=== PATIENT | female | born 1950 | race Two or more races ===

== ENCOUNTER 2020-05-12 08:50 | Outpatient (REF) | payer MEDICARE, SELFPAY ==
--- NOTE | 2020-05-12 08:54 | MM_ITS ---
EXAMINATION: BONE DENSITOMETRY CLINICAL INDICATION: Osteoporosis. COMPARISON: None (current study represents initial baseline exam). TECHNIQUE: Using a [employer] DXA System (software version: 13.1) manufactured by [employer], dual-energy x-ray absorptiometry was performed of the lumbar spine and left hip. The images are of good technical quality. Summary results are attached. FINDINGS: AP SPINE L1-L4: BMD 0.710 g/cm2, Z-score -1.5, T-score -3.9, osteoporosis. LEFT FEMUR, NECK: BMD 0.597 g/cm2, Z-score -1.1, T-score -3.2, osteoporosis. LEFT FEMUR, TOTAL: BMD 0.679 g/cm2, Z-score -0.7, T-score -2.6, osteoporosis. IDENTIFIED RISK FACTORS: Secondary osteoporosis (intestinal or bowel disease). Low body weight. Menopause. HISTORY OF FRACTURE: None listed. MEDICATIONS: Vitamin D. MM/XR DEXA axial skeleton IMPRESSION: 1. DIAGNOSIS: Osteoporosis based on the lowest T-score value of -3.9 in the lumbar spine applying World Health Organization criteria. 2. 10-YEAR FRACTURE RISK PREDICTION, FRAX: Major osteoporotic fracture (clinical spine, forearm, hip or shoulder) 9.4%. Hip fracture 3.5%. 3. Treatment Recommendations: NOF guidelines recommend consideration for treatment in postmenopausal women and men age 50 and older presenting with the following: -A hip or vertebral (clinical or morphometric) fracture. -T-score less than or equal to -2.5 at the femoral neck or spine after appropriate evaluation to exclude secondary causes. -Low bone mass at the hip or spine and a 10-year fracture probability by FRAX of greater than or equal to 3% for hip fracture or greater than or equal to 20% for major osteoporotic fracture based on the [place] adapted WHO algorithm. 4. Other Recommendations: All treatment decisions require clinical judgment and consideration of individual patient factors, including patient preferences, comorbidities, previous drug use, risk factors not captured in the FRAX model (e.g. frailty, falls, vitamin D deficiency, increased bone turnover, interval significant decline in bone density) and possible under or overestimation of fracture risk by FRAX. Additional medical evaluation for secondary cause of low bone mineral density may be appropriate. FUTURE SCAN RECOMMENDATION: People with diagnosed cases of osteoporosis or at high risk for fracture should have regular bone mineral density tests. For patients eligible for Medicare, routine testing is allowed once every 2 years. The testing frequency can be increased to one year for patients who have rapidly progressing disease, those who are receiving or discontinuing medical therapy to restore bone mass, or have additional risk factors.
== END 2020-05-12 08:51 | disposition home or self-care (01) ==
LOC: HO.MAMMO 08:50
PROVIDERS: PCP Internal Medicine; Visit Provider Internal Medicine
DX: R63.6 Underweight (principal); Z78.0 Asymptomatic menopausal state
CPT/HCPCS: 77080

== ENCOUNTER 2020-07-24 09:48 | Outpatient (REF) | payer MEDICARE, SELFPAY ==
--- NOTE | 2020-07-24 09:52 | MM_ITS ---
EXAMINATION: MM SCREENING DIGITAL BREAST TOMOSYNTHESIS, BILATERAL CLINICAL INFORMATION: Screening. Asymptomatic. The lifetime risk of breast cancer based on the Tyrer-Cuzick Model is 3%. COMPARISON: Mammography: 07/19/2019, 07/13/2018, 05/12/2017 TECHNIQUE: Digital breast tomosynthesis is performed in both the craniocaudal and mediolateral oblique views along with computer-aided detection (CAD). Synthesized 2D images are generated from the tomosynthesis. Additional right CC view is provided. FINDINGS: There are scattered areas of fibroglandular density (ACR BI-RADS breast composition Category b). There are no significant masses, abnormal calcifications, or other abnormalities. No significant changes from prior exams. MM/MM tomosynthesis screening BI IMPRESSION: No mammographic evidence of malignancy. ASSESSMENT: BI-RADS 1: Negative RECOMMENDATION: Routine annual mammography screening. This patient's information was entered into a reminder system with a target due date for their next mammogram.
== END 2020-07-24 09:49 | disposition home or self-care (01) ==
LOC: HO.MAMMO 09:48
PROVIDERS: PCP Internal Medicine; Visit Provider Internal Medicine
DX: Z12.31 Encounter for screening mammogram for malignant neoplasm of breast (principal)
CPT/HCPCS: 77063; 77067

== ENCOUNTER 2020-08-02 09:56 | Outpatient (REF) | payer MEDICARE, SELFPAY ==
[2020-08-02 11:19] LABS: MANUAL DIFF FLAG NO
[2020-08-02 11:38] LABS: Basophils Percent Auto 1.1 % (0-2); Eosinophils Percent Auto 0.6 % (0-4); Hematocrit 35.8 % (37-47); Hemoglobin 11.5 g/dl (12.0-16.0); Imm Gran Abs Auto 0.01 X10*3/uL (0.00-0.03); Imm Gran Pct Auto 0.3 % (0.0-0.4); Lymphocytes Absolute Auto 1.5 X10*3/uL (1.2-4.9); Mean Corpuscular HGB Conc 32.1 g/dl (31.0-35.0); Mean Corpuscular Hemoglobin 30.3 pg (27.0-33.0); Mean Corpuscular Volume 94.5 fL (80-98); Mean Platelet Volume 11.5 fL (9.4-12.3); Monocytes Absolute Auto 0.2 X10*3/uL (0.1-1.2); Monocytes Percent Auto 6.8 % (2-11); Neutrophils Absolute Auto 1.7 X10*3/uL (2.0-8.3); Neutrophils Percent Auto 49.2 % (45-73); Platelet Count 201 X10*3/uL (160-400); Red Blood Count 3.79 X10*6/uL (4.20-5.50); White Blood Count 3.5 X10*3/uL (4.8-10.8)
[2020-08-02 12:01] LABS: Alanine Aminotransferase 13 U/L (0-31); Albumin Level 4.4 g/dL (3.5-5.0); Alkaline Phosphatase 77 U/L (39-117); Anion Gap 10 (12-20); Aspartate Amino Transferase 22 U/L (5-31); Bilirubin Total 0.8 mg/dL (0.0-1.0); Blood Urea Nitrogen 16 mg/dL (9-16); Calcium 9.5 mg/dL (8.4-10.2); Carbon Dioxide 32 mmol/L (22-29); Chloride 105 mmol/L (96-108); Cholesterol 226 mg/dL; Estimated Glomerular Filt Rate > 60; Glucose Fasting 97 mg/dL (60-99); HDL Cholesterol 84 mg/dL; LDL Cholesterol Calculated 119 mg/dl; Potassium 4.3 mmol/l (3.3-5.1); Sodium 143 mmol/L (135-145); Total Protein 6.8 g/dL (6.5-8.0); Triglycerides 115 mg/dL
[2020-08-02 12:20] LABS: TSH reflex Free T4 1.67 mIU/mL (0.32-4.0); Vitamin D 25-OH Total 19.2 ng/mL (>30)
== END 2020-08-02 09:57 | disposition home or self-care (01) ==
LOC: HO.LAB 09:56
PROVIDERS: PCP Internal Medicine; Visit Provider Internal Medicine
DX: E78.5 Hyperlipidemia, unspecified (principal); K21.9 Gastro-esophageal reflux disease without esophagitis; K59.00 Constipation, unspecified; E55.9 Vitamin D deficiency, unspecified; R63.6 Underweight
CPT/HCPCS: 36415; 80053; 80061; 82306; 84443; 85025

== ENCOUNTER 2020-10-03 10:44 | Outpatient (REF) | payer MEDICARE, SELFPAY | END 2020-10-03 10:45 | disposition home or self-care (01) | LOC: HO.LAB 10:44 | PROVIDERS: Visit Provider Internal Medicine | DX: Z20.822 Contact with and (suspected) exposure to COVID-19 (principal) | CPT/HCPCS: 36415; C9803; U0003; U0005 ==

== ENCOUNTER 2020-10-11 08:13 | Outpatient (REF) | payer MEDICARE, SELFPAY ==
[2020-10-11 10:25] LABS: Vitamin D 25-OH Total 33.9 ng/mL (>30)
[2020-10-12 18:11] LABS: Calcium (PTHI) 10.1 mg/dL (8.6-10.4); PTHI 42 pg/mL (14-64)
[2020-10-13 06:56] LABS: Immunoglobulin A 265 mg/dL (70-320)
[2020-10-13 15:22] LABS: Prot Elec - Albumin 4.5 g/dL (3.8-4.8); Prot Elec - Alpha1 0.2 g/dL (0.2-0.3); Prot Elec - Alpha2 0.6 g/dL (0.5-0.9); Prot Elec - Beta 1 0.4 g/dL (0.4-0.6); Prot Elec - Beta 2 0.4 g/dL (0.2-0.5); Prot Elec - Gamma 0.9 g/dL (0.8-1.7); Prot Elec - Total Protein 6.9 g/dL (6.1-8.1)
[2020-10-16 17:22] LABS: Transglutaminase Ab IgG 2 U/mL
[2020-10-17 02:26] LABS: VITAMIN D (1,25 OH) D3 43 pg/mL; Vit D (1,25-Dihydroxy) Total 43 pg/mL (18-72); Vitamin D (1,25 OH) D2 <8 pg/mL
[2020-10-17 16:02] LABS: N-Telopeptide 55 (see note); NTXCreaRU 112 mg/dL (20-275)
[2020-10-18 14:17] LABS: Endomysial IgA Antibody Negative (Negative)
== END 2020-10-11 08:14 | disposition home or self-care (01) ==
LOC: HO.LAB 08:13
PROVIDERS: PCP Internal Medicine; Referring Provider Internal Medicine; Visit Provider Internal Medicine Endocrinology, Diabetes & Metabolism
DX: M81.0 Age-related osteoporosis without current pathological fracture (principal); E55.9 Vitamin D deficiency, unspecified; D64.9 Anemia, unspecified; R63.4 Abnormal weight loss; Z79.899 Other long term (current) drug therapy
CPT/HCPCS: 36415; 82306; 82523; 82652; 82784; 83516; 83970; 84155; 84165; 86255; 86256; 99202

== ENCOUNTER 2020-10-14 08:37 | Outpatient (REF) | payer MEDICARE, SELFPAY ==
[2020-10-14 09:23] LABS: Total Volume 24 Hour Urine 1100 mL
[2020-10-14 09:57] LABS: Creatinine, 24Hr Urine 0.7 G/Day (1.0-2.0)
[2020-10-16 16:56] LABS: Calcium, 24 Hr Urine 96 mg/24 h; Calcium/Creatinine Ratio 150 mg/g creat (30-275); Creatinine 24Hr Urine 0.64 g/24 h (0.50-2.15)
[2020-10-17 11:37] LABS: Creatinine, 24Hr Urine 0.65 g/24 h (0.50-2.15); PEU-PROT/CRE Ratio mg/mg 0.085 (< OR = 0.114); PEU24-Albumin Urine 100 %; PEU24-Alpha 1 Globulin 0 %; PEU24-Alpha 2 Globulin 0 %; PEU24-Beta Globulin 0 %; PEU24-Gamma Globulin 0 %; Total Protein 24Hr Urine 55 mg/24 h (<150); Total Protein/Creat Ratio 24h 85 mg/g creat (< OR = 114)
== END 2020-10-14 08:38 | disposition home or self-care (01) ==
LOC: HO.LNP 08:37
PROVIDERS: Visit Provider Internal Medicine Endocrinology, Diabetes & Metabolism
DX: M81.0 Age-related osteoporosis without current pathological fracture (principal)
CPT/HCPCS: 82340; 82570; 84156; 84166

== ENCOUNTER 2020-12-04 09:20 | Outpatient (REF) | payer MEDICARE, SELFPAY ==
[2020-12-04 10:32] LABS: MANUAL DIFF FLAG NO
[2020-12-04 10:40] LABS: Eosinophils Absolute Auto 0.1 X10*3/uL (0.0-0.4); Hematocrit 35.1 % (37-47); Hemoglobin 11.2 g/dl (12.0-16.0); Imm Gran Abs Auto 0.01 X10*3/uL (0.00-0.03); Imm Gran Pct Auto 0.2 % (0.0-0.4); Lymphocytes Absolute Auto 1.6 X10*3/uL (1.2-4.9); Mean Corpuscular HGB Conc 31.9 g/dl (31.0-35.0); Mean Corpuscular Hemoglobin 29.9 pg (27.0-33.0); Mean Corpuscular Volume 93.6 fL (80-98); Mean Platelet Volume 11.4 fL (9.4-12.3); Monocytes Absolute Auto 0.2 X10*3/uL (0.1-1.2); Monocytes Percent Auto 5.7 % (2-11); Neutrophils Absolute Auto 2.1 X10*3/uL (2.0-8.3); Neutrophils Percent Auto 52.1 % (45-73); Platelet Count 189 X10*3/uL (160-400); Red Blood Count 3.75 X10*6/uL (4.20-5.50); Red Cell Distribution Width 13.1 % (11.0-16.0)
[2020-12-04 11:12] LABS: Alanine Aminotransferase 11 U/L (0-31); Albumin Level 4.2 g/dL (3.5-5.0); Alkaline Phosphatase 74 U/L (39-117); Anion Gap 12 (12-20); Aspartate Amino Transferase 20 U/L (5-31); Bilirubin Total 0.6 mg/dL (0.0-1.0); Blood Urea Nitrogen 11 mg/dL (9-16); Calcium 9.3 mg/dL (8.4-10.2); Carbon Dioxide 29 mmol/L (22-29); Chloride 104 mmol/L (96-108); Cholesterol 233 mg/dL; Estimated Glomerular Filt Rate > 60; Glucose Fasting 91 mg/dL (60-99); HDL Cholesterol 79 mg/dL; LDL Cholesterol Calculated 129 mg/dl; Potassium 4.2 mmol/L (3.3-5.1); Sodium 141 mmol/L (135-145); Total Protein 6.6 g/dL (6.5-8.0); Triglycerides 125 mg/dL
[2020-12-04 11:37] LABS: TSH reflex Free T4 1.99 uIU/mL (0.32-4.0); Vitamin D 25-OH Total 37.6 ng/mL (>30)
== END 2020-12-04 09:21 | disposition home or self-care (01) ==
LOC: HO.LAB 09:20
PROVIDERS: PCP Internal Medicine; Visit Provider Internal Medicine
DX: K21.9 Gastro-esophageal reflux disease without esophagitis (principal); K59.00 Constipation, unspecified; E78.00 Pure hypercholesterolemia, unspecified; E55.9 Vitamin D deficiency, unspecified
CPT/HCPCS: 36415; 80053; 80061; 82306; 84443; 85025

== ENCOUNTER → 2021-01-10 08:31 | Outpatient (BNVA) | payer MEDICARE, SELFPAY | PROVIDERS: PCP Internal Medicine; Visit Provider Internal Medicine Endocrinology, Diabetes & Metabolism | DX: M81.0 Age-related osteoporosis without current pathological fracture (principal); E55.9 Vitamin D deficiency, unspecified | CPT/HCPCS: 99212 ==

== ENCOUNTER 2021-04-02 09:51 | Outpatient (REF) | payer MEDICARE, SELFPAY ==
[2021-04-02 10:53] LABS: MANUAL DIFF FLAG NO
[2021-04-02 11:03] LABS: Basophils Percent Auto 1.1 % (0-2); Eosinophils Absolute Auto 0.1 X10*3/uL (0.0-0.4); Eosinophils Percent Auto 1.9 % (0-4); Hematocrit 36.1 % (37-47); Hemoglobin 11.7 g/dl (12.0-16.0); Imm Gran Abs Auto 0.01 X10*3/uL (0.00-0.03); Imm Gran Pct Auto 0.3 % (0.0-0.4); Lymphocytes Absolute Auto 1.6 X10*3/uL (1.2-4.9); Lymphocytes Percent Auto 42.7 % (20-40); Mean Corpuscular HGB Conc 32.4 g/dl (31.0-35.0); Mean Corpuscular Hemoglobin 30.1 pg (27.0-33.0); Mean Corpuscular Volume 92.8 fL (80-98); Monocytes Absolute Auto 0.3 X10*3/uL (0.1-1.2); Monocytes Percent Auto 7.4 % (2-11); Neutrophils Absolute Auto 1.8 X10*3/uL (2.0-8.3); Neutrophils Percent Auto 46.6 % (45-73); Platelet Count 195 X10*3/uL (160-400); Red Blood Count 3.89 X10*6/uL (4.20-5.50); Red Cell Distribution Width 13.2 % (11.0-16.0); White Blood Count 3.8 X10*3/uL (4.8-10.8)
[2021-04-02 11:30] LABS: Alanine Aminotransferase 8 U/L (0-31); Albumin Level 4.3 g/dL (3.5-5.0); Alkaline Phosphatase 73 U/L (39-117); Anion Gap 10 (12-20); Aspartate Amino Transferase 22 U/L (5-31); Bilirubin Total 0.5 mg/dL (0.0-1.0); Blood Urea Nitrogen 12 mg/dL (9-16); Calcium 9.7 mg/dL (8.4-10.2); Carbon Dioxide 30 mmol/L (22-29); Chloride 106 mmol/L (96-108); Cholesterol 249 mg/dL; Estimated Glomerular Filt Rate > 60; Glucose Fasting 98 mg/dL (60-99); HDL Cholesterol 80 mg/dL; LDL Cholesterol Calculated 139 mg/dl; Potassium 4.4 mmol/L (3.3-5.1); Sodium 142 mmol/L (135-145); Total Protein 6.6 g/dL (6.5-8.0); Triglycerides 154 mg/dL
[2021-04-02 11:55] LABS: Vitamin D 25-OH Total 25.3 ng/mL (>30)
== END 2021-04-02 09:52 | disposition home or self-care (01) ==
LOC: HO.LAB 09:51
PROVIDERS: PCP Internal Medicine; Visit Provider Internal Medicine
DX: E55.9 Vitamin D deficiency, unspecified (principal); M81.0 Age-related osteoporosis without current pathological fracture; E78.00 Pure hypercholesterolemia, unspecified; I10 Essential (primary) hypertension; K21.9 Gastro-esophageal reflux disease without esophagitis
CPT/HCPCS: 36415; 80053; 80061; 82306; 84443; 85025

== ENCOUNTER 2021-06-26 14:03 | Outpatient (REF) | payer MEDICARE, SELFPAY | END 2021-06-26 14:04 | disposition home or self-care (01) | LOC: HO.LNP 14:03 | PROVIDERS: Visit Provider Physician Assistant Medical | DX: Z20.822 Contact with and (suspected) exposure to COVID-19 (principal); R50.9 Fever, unspecified | CPT/HCPCS: 87071; U0003; U0005 ==

== ENCOUNTER 2021-07-05 09:08 | Outpatient (REF) | payer MEDICARE, SELFPAY ==
[2021-07-05 09:18] LABS: MANUAL DIFF FLAG NO
[2021-07-05 09:53] LABS: Basophils Absolute Auto 0.1 X10*3/uL (0.0-0.2); Basophils Percent Auto 1.2 % (0-2); Eosinophils Absolute Auto 0.1 X10*3/uL (0.0-0.4); Eosinophils Percent Auto 1.4 % (0-4); Hematocrit 37.2 % (37.0-47.0); Imm Gran Abs Auto 0.01 X10*3/uL (0.00-0.03); Imm Gran Pct Auto 0.2 % (0.0-0.4); Lymphocytes Absolute Auto 1.8 X10*3/uL (1.2-4.9); Lymphocytes Percent Auto 43.4 % (20-40); Mean Corpuscular HGB Conc 32.3 g/dl (31.0-35.0); Mean Platelet Volume 11.3 fL (9.4-12.3); Monocytes Absolute Auto 0.4 X10*3/uL (0.1-1.2); Neutrophils Absolute Auto 1.9 x10*3/uL (2.0-8.3); Neutrophils Percent Auto 44.8 % (45-73); Platelet Count 204 X10*3/uL (160-400); White Blood Count 4.2 X10*3/uL (4.8-10.8)
[2021-07-05 10:19] LABS: Alanine Aminotransferase 11 U/L (0-31); Albumin Level 4.3 g/dL (3.5-5.0); Alkaline Phosphatase 77 U/L (39-117); Anion Gap 11 (12-20); Aspartate Amino Transferase 24 U/L (5-31); Bilirubin Total 0.8 mg/dL (0.0-1.0); Blood Urea Nitrogen 12 mg/dL (9-16); Calcium 10.1 mg/dL (8.4-10.2); Carbon Dioxide 30 mmol/L (22-29); Chloride 105 mmol/L (96-108); Cholesterol 266 mg/dL; Estimated Glomerular Filt Rate > 60; Glucose Fasting 97 mg/dL (60-99); HDL Cholesterol 83 mg/dL; LDL Cholesterol Calculated 160 mg/dl; Potassium 4.7 mmol/L (3.3-5.1); Sodium 141 mmol/L (135-145); Total Protein 6.9 g/dL (6.5-8.0); Triglycerides 116 mg/dL
== END 2021-07-05 09:09 | disposition home or self-care (01) ==
LOC: HO.LAB 09:08
PROVIDERS: Visit Provider Nurse Practitioner Family
DX: Z13.89 Encounter for screening for other disorder (principal)
CPT/HCPCS: 36415; 80053; 80061; 85025

== ENCOUNTER 2021-07-05 19:29 | Emergency (ER) | payer MEDICARE, SELFPAY ==
--- NOTE | ~2021-07-05 | XR_ITS ---
EXAMINATION: XR CHEST CLINICAL INFORMATION: Chest pain. COMPARISON: Multiple priors. Most recent chest radiograph dated from 12/22/2018. TECHNIQUE: PA view of the chest was obtained. FINDINGS: Normal appearance of the cardiomediastinal silhouette. Clear lungs. No pleural effusions or pneumothorax. No acute osseous abnormalities. The visualized upper abdomen is within normal limits. XR/XR chest 1V IMPRESSION: No acute cardiopulmonary findings.
[2021-07-05 19:45] VITALS: BP 136/76; PULSE 85; RESP 20; TEMP 36.3; O2SAT 100; BMI 17.3
--- NOTE | 2021-07-05 19:48 | ECG_ITS ---
Test Reason : CHEST PAIN Blood Pressure : / mmHG Vent. Rate : 087 BPM Atrial Rate : 087 BPM P-R Int : 150 ms QRS Dur : 082 ms QT Int : 350 ms P-R-T Axes : 059 050 053 degrees QTc Int : 421 ms Normal sinus rhythm with sinus arrhythmia Normal ECG When compared with ECG of 18-OCT-2008 12:26, No significant change was found Referred By: Generic ED Physician Electronically Signed By:LEONORA TORRES MD
[2021-07-05 20:13] LABS: MANUAL DIFF FLAG NO
[2021-07-05 20:14] LABS: Basophils Percent Auto 0.8 % (0-2); Eosinophils Percent Auto 0.6 % (0-4); Hematocrit 34.6 % (37.0-47.0); Hemoglobin 11.2 g/dl (12.0-16.0); Imm Gran Abs Auto 0.01 X10*3/uL (0.00-0.03); Imm Gran Pct Auto 0.2 % (0.0-0.4); Lymphocytes Absolute Auto 1.8 X10*3/uL (1.2-4.9); Lymphocytes Percent Auto 38.2 % (20-40); Mean Corpuscular HGB Conc 32.4 g/dl (31.0-35.0); Mean Corpuscular Hemoglobin 29.9 pg (27.0-33.0); Mean Corpuscular Volume 92.5 fL (80.0-98.0); Mean Platelet Volume 10.6 fL (9.4-12.3); Monocytes Absolute Auto 0.4 X10*3/uL (0.1-1.2); Monocytes Percent Auto 7.9 % (2-11); Neutrophils Absolute Auto 2.5 x10*3/uL (2.0-8.3); Neutrophils Percent Auto 52.3 % (45-73); Platelet Count 215 X10*3/uL (160-400); Red Blood Count 3.74 X10*6/uL (4.20-5.50); White Blood Count 4.8 X10*3/uL (4.8-10.8)
[2021-07-05 20:27] LABS: Anion Gap 11 (12-20); Blood Urea Nitrogen 15 mg/dL (9-16); Calcium 10.1 mg/dL (8.4-10.2); Carbon Dioxide 29 mmol/L (22-29); Chloride 104 mmol/L (96-108); Creatinine Clr Calc Pharmacy 51.3; Estimated Glomerular Filt Rate > 60; Glucose Random 106 mg/dL (60-115); Potassium 4.4 mmol/L (3.3-5.1); Sodium 140 mmol/L (135-145)
[2021-07-05 20:34] LABS: Troponin-I High Sensitivity < 3.5 ng/L (<3.5-17.0)
[2021-07-05 22:50] VITALS: BP 136/66; PULSE 71; RESP 18; TEMP 36.6; O2SAT 100
[2021-07-06 01:16] VITALS: BP 124/56; PULSE 71; RESP 16; O2SAT 100
[2021-07-06 01:42] VITALS: BP 124/68; PULSE 64; RESP 16; TEMP 36.6; O2SAT 94
--- NOTE | 2021-07-06 03:42 | ED.CHESTPAIN ---
HPI - Chest Pain General Chief Complaint: Chest Pain Stated Complaint: chest pain Time Seen by Provider: 07/06/21 03:26 Source: patient Mode of arrival: ambulatory Limitations: no limitations History of Present Illness HPI narrative: 71-year-old female who presents emergency department for evaluation of 2 days of pleuritic pain. The patient states that the pain started 2 days prior while she was in [place]. The pain came on gradually. She states that the pain is a sharp pain located in the right side of her chest and she points to her right lateral chest when asked to localize the pain. The pain is intermittent and worse with breathing and worse if she pushes on her right chest. The pain is moderate in intensity. She denied fever, rhinorrhea, cough, shortness of breath, dyspnea on exertion, lightheadedness or dizziness associated with the pain. She states that 1 week prior she had a sore throat and was seen at an urgent care clinic and had a negative strep test and a negative COVID-19 test. She has not noticed any pain or swelling in her lower extremities. She has not gone on any long trips recently. Related Data Home Medications Medication Instructions Recorded Confirmed ibuprofen 400 mg tablet 400 mg PO Q6H PRN 08/08/20 04/06/21 polyethylene glycol 3350 17 17 g PO DAILY 08/13/20 04/06/21 gram/dose oral powder (Miralax) Previous Rx's Medication Instructions Recorded omeprazole 20 mg capsule,delayed 20 mg PO DAILY 90 Days #90 cap 12/06/20 release alendronate 70 mg tablet 70 mg PO QWEEK 90 Days #13 tab 01/10/21 calcium citrate 500 mg PO DAILY 90 Days #180 tab 01/10/21 cholecalciferol (vitamin D3) 125 125 mcg PO DAILY 90 Days #90 cap 01/10/21 mcg (5,000 unit) capsule Fish Oil Concentrate 1,000 mg 1,000 mg PO DAILY #30 cap NS 04/06/21 capsule (omega-3 fatty acids) zolpidem 10 mg tablet 10 mg PO BEDTIME PRN 30 Days #30 04/12/21 tab Allergies Allergy/AdvReac Type Severity Reaction Status Date / Time morphine [MORPHINE] Allergy Intermediate HYPOTENSION, Verified 06/26/21 11:51 abdominal pains atorvastatin Allergy Unknown headaches,abdominal Verified 06/26/21 11:51 pains simvastatin Allergy Unknown myalgia Verified 06/26/21 11:51 trazodone AdvReac Unknown headaches, Verified 06/26/21 11:51 weakness Review of Systems Review of Systems: Yes all other systems are reviewed and are negative [facility] Past Medical History [facility] Narrative: Past medical history: She denies tobacco, alcohol and drug use. Medical History Anxiety Constipation GERD (gastroesophageal reflux disease) Insomnia Osteoporosis Postherpetic neuralgia Primary osteoarthritis, left shoulder Pure hypercholesterolemia Varicose veins of leg with pain Vitamin D deficiency Surgical History History of colonoscopy History of excision of mass History of total hysterectomy Varicose vein of leg Family History Family History Father Medical history unknown Mother Medical history unknown Son No problems noted. Daughter No problems noted. Social History Social History Alcohol intake: never Patient Tobacco Use Status: Never used Tobacco Advance Directives: No Advance Directives Information Provided: No Physical Exam Vital Signs: Vital Signs: Last Vital Signs Temp 97.9 F 07/06/21 01:42 Pulse 64 07/06/21 01:42 Resp 16 07/06/21 01:42 BP 124/68 07/06/21 01:42 Pulse Ox 94 07/06/21 01:42 BMI result Body Mass Index 17.3 Const: General: cooperative and no acute distress Orientation/consciousness: oriented to person and oriented to place Limitations: no limitations HENMT: Head: Yes normal to inspection, Yes normocephalic and Yes atraumatic Ears: external ears normal General nose exam: Normal external nose present Face and sinus: Yes normal facial exam Mouth: Normal oral and palatal mucosa present Throat: Yes posterior oropharynx normal Eyes: General: appearance normal, both eyes and all related structures Pupils: Equal, round and reactive pupils present Neck: Neck: Yes normal visual inspection, Yes no lymphadenopathy, Yes trachea midline and Yes supple Chest: Other: No rashes or lesions noted on the right chest wall in the area where she has pain, patient does have an area of tenderness with palpation over the lateral chest wall. Resp: Effort & Inspection: normal respiratory effort and able to speak in complete sentences Auscultation: clear to auscultation bilaterally Cardio: Rate: regular rate Rhythm: regular rhythm Heart sounds: S1 normal heart sound present, S2 normal heart sound present and no murmurs GI: Inspection: Yes normal to inspection Palpation (GI): Soft to palpation, nontender and no guarding Auscultation: normal bowel sounds : General: Yes no CVA tenderness Back/Spine/Pelvis: Back: no CVA tenderness Skin: General skin exam: no rashes or lesions noted Neuro: General: oriented to person and oriented to place Cranial nerves: Yes CN's II-XII intact bilaterally and Yes Equal, round and reactive pupils present Cognition (Neuro): normal cognition Motor exam (neuro): 5/5 motor strength present throughout Extrem: Other: No asymmetric swelling or pitting edema noted General: Yes normal to inspection Psych: Appearance: grossly normal Speech and movement: Normal speech and movement present Affect: normal affect Attitude: cooperative Thought process: Normal thought process present Thought content: Normal thought content present Course Course Course Narrative: 71-year-old female who presents emergency department for evaluation of 2 days of right lateral chest pleuritic pain. The pain came on gradually and she has no associated shortness of breath, dyspnea on exertion, fever, chills or cough. She has not noticed any lower extremity swelling or pain. Patient did have a viral pharyngitis 1 week prior. Patient's initial vital signs were unremarkable. Physical examination did reveal right-sided reproducible chest pain. Laboratory evaluation revealed mild anemia with an H&H of 11.2 and 34.6, troponin was below detectable limits. COVID-19 test was negative. Chest x-ray was unremarkable. Patient's presentation is consistent with viral pleurisy and I did discuss this with her. She was advised to take Aleve 220 mg pills, 1 pill twice a day for 3-4 days. She was given verbal and printed instructions on pleurisy and discharged home. MDM - Chest Pain Lab Data Result diagrams: 07/05/21 20:03 07/05/21 20:03 Labs: Lab Results 07/05/21 07/05/21 07/05/21 Range/Units 20:03 20:03 20:03 WBC 4.8 (4.8-10.8) X10*3/uL RBC 3.74 L (4.20-5.50) X10*6/uL Hgb 11.2 L (12.0-16.0) g/dl Hct 34.6 L (37.0-47.0) % MCV 92.5 (80.0-98.0) fL MCH 29.9 (27.0-33.0) pg MCHC 32.4 (31.0-35.0) g/dl RDW 13.0 (11.0-16.0) % Plt Count 215 (160-400) X10*3/uL MPV 10.6 (9.4-12.3) fL Immature Gran % (Auto) 0.2 (0.0-0.4) % Neut % (Auto) 52.3 (45-73) % Lymph % (Auto) 38.2 (20-40) % Holt % (Auto) 7.9 (2-11) % Eos % (Auto) 0.6 (0-4) % Baso % (Auto) 0.8 (0-2) % Lymph # (Auto) 1.8 (1.2-4.9) X10*3/uL Holt # (Auto) 0.4 (0.1-1.2) X10*3/uL Eos # (Auto) 0.0 (0.0-0.4) X10*3/uL Baso # (Auto) 0.0 (0.0-0.2) X10*3/uL Abs Immat Gran (auto) 0.01 (0.00-0.03) X10*3/uL Absolute Neuts (auto) 2.5 (2.0-8.3) x10*3/uL Absolute Nucleated RBC 0.000 (0.0-0.012) X10*3/uL Nucleated RBC % (auto) 0.0 (0.0-0.2) /100WBC Sodium 140 (135-145) mmol/L Potassium 4.4 (3.3-5.1) mmol/L Chloride 104 (96-108) mmol/L Carbon Dioxide 29 (22-29) mmol/L Anion Gap 11 L (12-20) BUN 15 (9-16) mg/dL Creatinine 0.76 (0.5-1.4) mg/dL Estim Creat Clear Calc 51.3 Estimated GFR > 60 Random Glucose 106 (60-115) mg/dL Calcium 10.1 (8.4-10.2) mg/dL Troponin I High Sens < 3.5 (<3.5-17.0) ng/L ECG Data ECG #1: Interpretation: 1955: Normal sinus rhythm with a rate of 87, normal CT, QRS and QTC durations, no ST segment elevation, no ST segment depression, no PACs, no PVCs, this is a normal EKG. Discharge Plan Discharge Clinical Impression: Pleurisy Chest pain Qualifiers: Chest pain type: unspecified Qualified Code(s): R07.9 - Chest pain, unspecified Patient Disposition: Home, Self-Care Instructions: Pleurisy (ED) Additional Instructions: Your laboratory evaluation revealed only mild anemia otherwise was unremarkable. Your chest x-ray was normal with no evidence for pneumonia. Your EKG was normal. The marker for heart attack is call troponin and you had no troponin in your blood which is reassuring as well. Your symptoms are consistent with pleurisy which is inflammation of the lining of the lung. This is often caused by a viral infection and does get better by itself. I want you to take the anti-inflammatory medication Aleve (naproxen) 220 mg pills, 1 pill twice a day for the next 3-4 days to help with your pain. You can also take Tylenol 325 mg pills, 2 pills every 6 hours as needed for pain. Follow-up with your doctor in 2 days. Please return to the emergency department if your symptoms get worse or if you develop any symptoms that are concerning to you. Prescriptions: No Action zolpidem 10 mg tablet 10 mg PO BEDTIME PRN (Reason: insomnia) 30 Days Qty: 30 RF: 0 ibuprofen 400 mg tablet 400 mg PO Q6H PRN (Reason: pain) RF: 0 polyethylene glycol 3350 [Miralax] 17 gram/dose powder 17 g PO DAILY RF: 0 omega-3 fatty acids [Fish Oil Concentrate] 1,000 mg capsule 1,000 mg PO DAILY Qty: 30 RF: 1 omeprazole 20 mg capsule,delayed release(DR/EC) 20 mg PO DAILY 90 Days Qty: 90 RF: 3 calcium citrate 250 mg calcium tablet 500 mg PO DAILY 90 Days Qty: 180 RF: 1 cholecalciferol (vitamin D3) 125 mcg (5,000 unit) capsule 125 mcg PO DAILY 90 Days Qty: 90 RF: 1 alendronate 70 mg tablet 70 mg PO QWEEK 90 Days Qty: 13 RF: 2
== END 2021-07-06 03:55 | disposition home or self-care (01) ==
PROVIDERS: Emergency Provider Emergency Medicine Emergency Medical Services; PCP Internal Medicine
DX: R09.1 Pleurisy (principal); R07.9 Chest pain, unspecified
CPT/HCPCS: 36415; 71045; 80048; 80053; 80061; 84484; 85025; 93005; 99284

== ENCOUNTER 2021-08-08 11:52 | Outpatient (REF) | payer MEDICARE, SELFPAY ==
[2021-08-08 12:16] LABS: COVID-19 Test Positive (Negative)
== END 2021-08-08 11:53 | disposition home or self-care (01) ==
LOC: HO.LAB 11:52
PROVIDERS: Visit Provider Internal Medicine
DX: Z20.822 Contact with and (suspected) exposure to COVID-19 (principal)
CPT/HCPCS: 87635; C9803

== ENCOUNTER 2021-08-20 11:52 | Outpatient (REF) | payer MEDICARE, SELFPAY ==
[2021-08-20 12:55] LABS: Binax Internal Control QC Valid; Binax Now Covid-19 Ag Negative (Negative)
== END 2021-08-20 11:53 | disposition home or self-care (01) ==
LOC: HO.LAB 11:52
PROVIDERS: PCP Internal Medicine; Visit Provider Internal Medicine
DX: Z13.89 Encounter for screening for other disorder (principal)

== ENCOUNTER 2021-09-05 10:28 | Outpatient (REF) | payer MEDICARE, SELFPAY ==
--- NOTE | ~2021-09-05 | MM_ITS ---
EXAMINATION: MM SCREENING DIGITAL BREAST TOMOSYNTHESIS, BILATERAL CLINICAL INFORMATION: Screening. Asymptomatic. The lifetime risk of breast cancer based on the Tyrer-Cuzick Model is 3%. COMPARISON: Mammography: 07/24/2020, 07/19/2019, 07/13/2018 TECHNIQUE: Digital breast tomosynthesis is performed in both the craniocaudal and mediolateral oblique views along with computer-aided detection (CAD). Synthesized 2D images are generated from the tomosynthesis. FINDINGS: There are scattered areas of fibroglandular density (ACR BI-RADS breast composition Category b). There are no significant masses, abnormal calcifications, or other abnormalities. Parenchymal pattern is similar to prior studies. The axilla and skin contours are unremarkable. MM/MM tomosynthesis screening BI IMPRESSION: No mammographic evidence of malignancy. ASSESSMENT: BI-RADS 1: Negative RECOMMENDATION: Routine annual mammography screening. This patient's information was entered into a reminder system with a target due date for their next mammogram.
== END 2021-09-05 10:29 | disposition home or self-care (01) ==
LOC: HO.MAMMO 10:28
PROVIDERS: Visit Provider Internal Medicine
DX: Z12.31 Encounter for screening mammogram for malignant neoplasm of breast (principal)
CPT/HCPCS: 77063; 77067

== ENCOUNTER 2021-10-03 09:15 | Outpatient (REF) | payer MEDICARE, SELFPAY ==
[2021-10-03 10:27] LABS: Appearance Urine CLEAR; Color Urine YELLOW; Glucose Urine UA NEG (NEG); Leukocyte Esterase Urine TRACE (NEG); Nitrite Urine NEG (NEG); PH 6.5 (5.0-8.0); UACC Culture Trigger YES; Urine Blood TRACE (NEG); Urine Ketones NEG (NEG); Urine Protein NEG (NEG-TRACE)
[2021-10-03 11:02] LABS: Alanine Aminotransferase 11 U/L (0-31); Albumin Level 4.2 g/dL (3.5-5.0); Alkaline Phosphatase 91 U/L (39-117); Anion Gap 11 (12-20); Aspartate Amino Transferase 22 U/L (5-31); Bilirubin Total 0.6 mg/dL (0.0-1.0); Blood Urea Nitrogen 13 mg/dL (9-16); Calcium 10.2 mg/dL (8.4-10.2); Carbon Dioxide 30 mmol/L (22-29); Chloride 104 mmol/L (96-108); Cholesterol 242 mg/dL; Estimated Glomerular Filt Rate > 60; Glucose Fasting 92 mg/dL (60-99); HDL Cholesterol 82 mg/dL; LDL Cholesterol Calculated 142 mg/dl; Potassium 4.9 mmol/L (3.3-5.1); Sodium 140 mmol/L (135-145); Total Protein 6.8 g/dL (6.5-8.0); Triglycerides 91 mg/dL
[2021-10-03 11:20] LABS: WBC Urine 0-2 /HPF (0-4)
[2021-10-03 11:21] LABS: Mucus Urine 1+ /LPF; RBC Urine 0-2 /HPF (0); Squamous Epithelial Cell Urine TRACE /LPF
[2021-10-03 11:25] LABS: TSH reflex Free T4 2.52 uIU/mL (0.32-4.0); Vitamin D 25-OH Total 49.1 ng/mL (>30)
== END 2021-10-03 09:16 | disposition home or self-care (01) ==
LOC: HO.LAB 09:15
PROVIDERS: PCP Internal Medicine; Visit Provider Internal Medicine
DX: E55.9 Vitamin D deficiency, unspecified (principal); E78.00 Pure hypercholesterolemia, unspecified
CPT/HCPCS: 36415; 80053; 80061; 81001; 82306; 84443; 87086

== ENCOUNTER 2022-01-04 08:42 | Outpatient (REF) | payer MEDICARE, SELFPAY ==
[2022-01-04 09:01] LABS: MANUAL DIFF FLAG NO
[2022-01-04 10:29] LABS: Basophils Percent Auto 0.8 % (0-2); Eosinophils Absolute Auto 0.1 X10*3/uL (0.0-0.4); Eosinophils Percent Auto 2.6 % (0-4); Hematocrit 35.7 % (37.0-47.0); Hemoglobin 11.6 g/dl (12.0-16.0); Imm Gran Abs Auto 0.01 X10*3/uL (0.00-0.03); Imm Gran Pct Auto 0.3 % (0.0-0.4); Lymphocytes Absolute Auto 1.6 X10*3/uL (1.2-4.9); Lymphocytes Percent Auto 40.2 % (20-40); Mean Corpuscular HGB Conc 32.5 g/dl (31.0-35.0); Mean Corpuscular Hemoglobin 30.1 pg (27.0-33.0); Mean Corpuscular Volume 92.5 fL (80.0-98.0); Monocytes Absolute Auto 0.3 X10*3/uL (0.1-1.2); Monocytes Percent Auto 8.8 % (2-11); Neutrophils Absolute Auto 1.8 x10*3/uL (2.0-8.3); Neutrophils Percent Auto 47.3 % (45-73); Platelet Count 213 X10*3/uL (160-400); Red Blood Count 3.86 X10*6/uL (4.20-5.50); Red Cell Distribution Width 13.2 % (11.0-16.0); White Blood Count 3.9 X10*3/uL (4.8-10.8)
[2022-01-04 10:35] LABS: Appearance Urine CLEAR; Color Urine YELLOW; Glucose Urine UA NEG (NEG); Leukocyte Esterase Urine NEG (NEG); Nitrite Urine NEG (NEG); Specific Gravity - Urine 1.015 (1.005-1.025); UACC Culture Trigger NO; Urine Blood TRACE (NEG); Urine Ketones NEG (NEG); Urine Protein NEG (NEG-TRACE)
[2022-01-04 11:06] LABS: Alanine Aminotransferase 12 U/L (0-31); Albumin Level 4.2 g/dL (3.5-5.0); Anion Gap 12 (12-20); Aspartate Amino Transferase 24 U/L (5-31); Bilirubin Total 0.8 mg/dL (0.0-1.0); Blood Urea Nitrogen 12 mg/dL (9-16); Calcium 9.5 mg/dL (8.4-10.2); Carbon Dioxide 29 mmol/L (22-29); Chloride 106 mmol/L (96-108); Cholesterol 255 mg/dL; Estimated Glomerular Filt Rate > 60; Glucose Fasting 88 mg/dL (60-99); HDL Cholesterol 80 mg/dL; LDL Cholesterol Calculated 156 mg/dl; Potassium 4.9 mmol/L (3.3-5.1); Sodium 142 mmol/L (135-145); Total Protein 6.7 g/dL (6.5-8.0); Triglycerides 98 mg/dL
[2022-01-04 11:15] LABS: Alkaline Phosphatase 78 U/L (39-117)
[2022-01-04 11:27] LABS: TSH reflex Free T4 2.14 uIU/mL (0.32-4.0)
[2022-01-04 11:47] LABS: Squamous Epithelial Cell Urine TRACE /LPF; WBC Urine 0-2 /HPF (0-4)
[2022-01-04 11:48] LABS: Mucus Urine 1+ /LPF
== END 2022-01-04 08:43 | disposition home or self-care (01) ==
LOC: HO.LAB 08:42
PROVIDERS: PCP Internal Medicine; Visit Provider Internal Medicine
DX: E78.00 Pure hypercholesterolemia, unspecified (principal); E55.9 Vitamin D deficiency, unspecified; I10 Essential (primary) hypertension
CPT/HCPCS: 36415; 80053; 80061; 81001; 82306; 84443; 85025

== ENCOUNTER → 2022-01-18 09:54 | Outpatient (BNVA) | payer MEDICARE, SELFPAY | PROVIDERS: PCP Nurse Practitioner Family; Visit Provider Internal Medicine Endocrinology, Diabetes & Metabolism | DX: M81.0 Age-related osteoporosis without current pathological fracture (principal) | CPT/HCPCS: 99212 ==

== ENCOUNTER 2022-05-07 08:57 | Outpatient (REF) | payer MEDICARE, SELFPAY ==
[2022-05-07 09:10] LABS: MANUAL DIFF FLAG NO
[2022-05-07 09:54] LABS: Eosinophils Absolute Auto 0.1 X10*3/uL (0.0-0.4); Eosinophils Percent Auto 2.1 % (0-4); Hematocrit 36.8 % (37.0-47.0); Imm Gran Abs Auto 0.01 X10*3/uL (0.00-0.03); Imm Gran Pct Auto 0.3 % (0.0-0.4); Lymphocytes Absolute Auto 1.7 X10*3/uL (1.2-4.9); Lymphocytes Percent Auto 44.3 % (20-40); Mean Corpuscular HGB Conc 32.6 g/dl (31.0-35.0); Mean Corpuscular Hemoglobin 29.8 pg (27.0-33.0); Mean Corpuscular Volume 91.3 fL (80.0-98.0); Mean Platelet Volume 11.3 fL (9.4-12.3); Monocytes Absolute Auto 0.3 X10*3/uL (0.1-1.2); Monocytes Percent Auto 7.6 % (2-11); Neutrophils Absolute Auto 1.7 x10*3/uL (2.0-8.3); Neutrophils Percent Auto 44.7 % (45-73); Platelet Count 213 X10*3/uL (160-400); Red Blood Count 4.03 X10*6/uL (4.20-5.50); White Blood Count 3.8 X10*3/uL (4.8-10.8)
[2022-05-07 10:32] LABS: Alanine Aminotransferase 9 U/L (0-31); Albumin Level 4.4 g/dL (3.5-5.0); Alkaline Phosphatase 74 U/L (39-117); Anion Gap 15 (12-20); Aspartate Amino Transferase 24 U/L (5-31); Bilirubin Total 0.8 mg/dL (0.0-1.0); Blood Urea Nitrogen 12 mg/dL (9-16); Calcium 9.9 mg/dL (8.4-10.2); Carbon Dioxide 28 mmol/L (22-29); Chloride 104 mmol/L (96-108); Cholesterol 264 mg/dL; Estimated Glomerular Filt Rate > 60; Glucose Fasting 92 mg/dL (60-99); HDL Cholesterol 83 mg/dL; LDL Cholesterol Calculated 159 mg/dl; Potassium 5.1 mmol/L (3.3-5.1); Sodium 142 mmol/L (135-145); Triglycerides 114 mg/dL
[2022-05-07 10:51] LABS: TSH reflex Free T4 2.41 uIU/mL (0.32-4.0)
[2022-05-07 10:52] LABS: Appearance Urine Clear; Color Urine Yellow; Glucose Urine UA Negative (Negative); Leukocyte Esterase Urine Negative (Negative); Nitrite Urine Negative (Negative); PH 7.5 (5.0-9.0); Urine Blood Negative (Negative); Urine Ketones Negative (Negative); Urine Protein Negative (Neg-Trace)
== END 2022-05-07 08:58 | disposition home or self-care (01) ==
LOC: HO.LAB 08:57
PROVIDERS: PCP Internal Medicine; Visit Provider Internal Medicine
DX: E78.00 Pure hypercholesterolemia, unspecified (principal); E55.9 Vitamin D deficiency, unspecified; I10 Essential (primary) hypertension
CPT/HCPCS: 36415; 80053; 80061; 81003; 82306; 84443; 85025

== ENCOUNTER 2022-05-15 10:44 | Outpatient (REF) | payer MEDICARE, SELFPAY ==
--- NOTE | ~2022-05-15 | MM_ITS ---
EXAMINATION: BONE DENSITOMETRY CLINICAL INDICATION: Age-related osteoporosis without current pathological fracture. COMPARISON: Baseline BD dated 05/12/2020. TECHNIQUE: Using a [employer] DXA System (software version: 13.1) manufactured by [employer], dual-energy x-ray absorptiometry was performed of the lumbar spine and left hip. The images are of good technical quality. Summary results are attached. FINDINGS: AP SPINE L1-L3 (excluding L4): The data of L1-L4 has been changed to exclude the L4 vertebral body, because degenerative sclerosis at this level may cause overestimation of lumbar spine density. Current: BMD 0.616 g/cm2, Z-score -2.4, T-score -4.6, osteoporosis, 9.7% decrease from baseline (<5% change is not significant). Baseline: BMD 0.682 g/cm2. LEFT FEMUR, NECK: Current: BMD 0.583 g/cm2, Z-score -1.2, T-score -3.3, osteoporosis. Baseline: BMD 0.597 g/cm2. LEFT FEMUR, TOTAL: Current: BMD 0.651 g/cm2, Z-score -0.9, T-score -2.8, osteoporosis, 4.1% decrease from baseline (<5% change is not significant). Baseline: BMD 0.679 g/cm2. IDENTIFIED RISK FACTORS: Menopause, hysterectomy, bilateral oophorectomy, height loss, low body weight, osteoporosis. HISTORY OF FRACTURE: None listed. MEDICATIONS: Calcium supplements, vitamin D, bisphosphonate. MM/XR DEXA axial skeleton IMPRESSION: 1. DIAGNOSIS: Osteoporosis based on the lowest T-score value of -4.6 in the lumbar spine applying World Health Organization criteria. 2. 10-YEAR FRACTURE RISK PREDICTION, FRAX: According to the guidelines, FRAX calculation should only be performed on patients in the osteopenia bone density category. Therefore, FRAX was not performed on this patient. 3. Treatment Recommendations: NOF guidelines recommend consideration for treatment in postmenopausal women and men age 50 and older presenting with the following: -A hip or vertebral (clinical or morphometric) fracture. -T-score less than or equal to -2.5 at the femoral neck or spine after appropriate evaluation to exclude secondary causes. -Low bone mass at the hip or spine and a 10-year fracture probability by FRAX of greater than or equal to 3% for hip fracture or greater than or equal to 20% for major osteoporotic fracture based on the [place] adapted WHO algorithm. 4. Other Recommendations: All treatment decisions require clinical judgment and consideration of individual patient factors, including patient preferences, comorbidities, previous drug use, risk factors not captured in the FRAX model (e.g. frailty, falls, vitamin D deficiency, increased bone turnover, interval significant decline in bone density) and possible under or overestimation of fracture risk by FRAX. Additional medical evaluation for secondary cause of low bone mineral density may be appropriate. FUTURE SCAN RECOMMENDATION: People with diagnosed cases of osteoporosis or at high risk for fracture should have regular bone mineral density tests. For patients eligible for Medicare, routine testing is allowed once every 2 years. The testing frequency can be increased to one year for patients who have rapidly progressing disease, those who are receiving or discontinuing medical therapy to restore bone mass, or have additional risk factors.
== END 2022-05-15 10:45 | disposition home or self-care (01) ==
LOC: HO.MAMMO 10:44
PROVIDERS: Visit Provider Internal Medicine Endocrinology, Diabetes & Metabolism
DX: Z13.820 Encounter for screening for osteoporosis (principal); M81.0 Age-related osteoporosis without current pathological fracture; Z78.0 Asymptomatic menopausal state
CPT/HCPCS: 77080

== ENCOUNTER 2022-05-17 08:36 | Outpatient (REF) | payer MEDICARE, SELFPAY ==
--- NOTE | ~2022-05-17 | MM_ITS ---
EXAMINATION: DXA VERTEBRAL FRACTURE ASSESSMENT CLINICAL INFORMATION: Osteoporosis. COMPARISON: DEXA 05/15/2022. TECHNIQUE: Your patient completed a vertebral fracture assessment using the [employer] DXA system (software version: 14.10) manufactured by [employer]. The following summarizes the results of our evaluation. LVA MORPHOMETRY RESULTS: Evaluation of the thoracolumbar spine from T4 through L4 was performed. Image quality is good. There is normal thoracic kyphosis and lumbar lordosis. No visible spondylolisthesis or focal compression. Z scores range from lowest Z score -2.2 (T4) to the highest Z score +0.5 (L1.) MM/XR DEXA vertrebral fracture IMPRESSION: -No focal vertebral compression. -Lowest Z score -2.2 at T4. -Hightest Z score +0.5 at L1. RECOMMENDATIONS: All patients should ensure an adequate intake of dietary calcium (1200 mg/d) and vitamin D (400-800 IU/d). Effective therapies are now available in the form of bisphosphonates, (alendronate, ibandronate, risedronate, zoledronic acid), antiresorptive agents (calcitonin, estrogen+progesterone and raloxifene) and anabolic agent (teriparatide). These therapies may reduce vertebral, hip and other fractures by up to 50%. FOLLOW-UP: People with diagnosed cases of osteoporosis, high risk for fracture, or current vertebral fractures should have regular bone mineral density tests. The frequency of follow-up vertebral fracture assessment tests should be determined based on clinical circumstances. Often times, testing frequency will be based on rapidly progressing disease, or the addition or elimination of therapy to treat the disease.
== END 2022-05-17 08:37 | disposition home or self-care (01) ==
LOC: HO.MAMMO 08:36
PROVIDERS: Visit Provider Internal Medicine Endocrinology, Diabetes & Metabolism
DX: Z13.820 Encounter for screening for osteoporosis (principal); Z78.0 Asymptomatic menopausal state; M81.0 Age-related osteoporosis without current pathological fracture
CPT/HCPCS: 77086

== ENCOUNTER 2022-08-19 09:14 | Outpatient (REF) | payer MEDICARE, SELFPAY ==
[2022-08-19 09:24] LABS: MANUAL DIFF FLAG NO
[2022-08-19 09:53] LABS: Basophils Absolute Auto 0.1 X10*3/uL (0.0-0.2); Basophils Percent Auto 1.2 % (0-2); Eosinophils Absolute Auto 0.1 X10*3/uL (0.0-0.4); Eosinophils Percent Auto 1.5 % (0-4); Hematocrit 36.8 % (37.0-47.0); Imm Gran Abs Auto 0.01 X10*3/uL (0.00-0.03); Imm Gran Pct Auto 0.2 % (0.0-0.4); Lymphocytes Absolute Auto 1.8 X10*3/uL (1.2-4.9); Lymphocytes Percent Auto 44.5 % (20-40); Mean Corpuscular HGB Conc 32.6 g/dl (31.0-35.0); Mean Platelet Volume 10.7 fL (9.4-12.3); Monocytes Absolute Auto 0.3 X10*3/uL (0.1-1.2); Monocytes Percent Auto 7.5 % (2-11); Neutrophils Absolute Auto 1.8 x10*3/uL (2.0-8.3); Neutrophils Percent Auto 45.1 % (45-73); Platelet Count 212 X10*3/uL (160-400); Red Cell Distribution Width 12.9 % (11.0-16.0)
[2022-08-19 10:28] LABS: Alanine Aminotransferase 11 U/L (0-31); Albumin Level 4.3 g/dL (3.5-5.0); Alkaline Phosphatase 77 U/L (39-117); Anion Gap 12 (12-20); Aspartate Amino Transferase 22 U/L (5-31); Bilirubin Total 0.8 mg/dL (0.0-1.0); Blood Urea Nitrogen 14 mg/dL (9-16); Calcium 9.9 mg/dL (8.4-10.2); Carbon Dioxide 31 mmol/L (22-29); Chloride 104 mmol/L (96-108); Cholesterol 275 mg/dL; Estimated Glomerular Filt Rate > 60; Glucose Fasting 94 mg/dL (60-99); HDL Cholesterol 80 mg/dL; LDL Cholesterol Calculated 175 mg/dl; Potassium 4.5 mmol/L (3.3-5.1); Sodium 142 mmol/L (135-145); Total Protein 6.7 g/dL (6.5-8.0); Triglycerides 103 mg/dL
[2022-08-19 10:37] LABS: TSH reflex Free T4 2.89 uIU/mL (0.32-4.0); Vitamin D 25-OH Total 44.5 ng/mL (>30)
[2022-08-19 10:49] LABS: Appearance Urine Clear; Color Urine Yellow; Glucose Urine UA Negative (Negative); Leukocyte Esterase Urine Negative (Negative); Nitrite Urine Negative (Negative); PH 7.5 (5.0-9.0); Specific Gravity - Urine 1.015 (1.005-1.025); Urine Blood Negative (Negative); Urine Ketones Negative (Negative); Urine Protein Negative (Neg-Trace)
== END 2022-08-19 09:15 | disposition home or self-care (01) ==
LOC: HO.LAB 09:14
PROVIDERS: PCP Internal Medicine; Visit Provider Internal Medicine
DX: E78.00 Pure hypercholesterolemia, unspecified (principal); I10 Essential (primary) hypertension; R30.0 Dysuria; E55.9 Vitamin D deficiency, unspecified
CPT/HCPCS: 36415; 80053; 80061; 81003; 82306; 84443; 85025

== ENCOUNTER 2022-08-20 08:58 | Outpatient (REF) | payer MEDICARE, SELFPAY ==
[2022-08-28 16:03] LABS: N-Telopeptide 64 (see note); NTXCreaRU 168 mg/dL (20-275)
== END 2022-08-20 08:59 | disposition home or self-care (01) ==
LOC: HO.LAB 08:58
PROVIDERS: PCP Internal Medicine; Visit Provider Internal Medicine Endocrinology, Diabetes & Metabolism
DX: M81.0 Age-related osteoporosis without current pathological fracture (principal)
CPT/HCPCS: 82523

== ENCOUNTER → 2022-08-22 09:46 | Outpatient (BNVA) | payer MEDICARE, SELFPAY | PROVIDERS: PCP Internal Medicine; Visit Provider Internal Medicine Endocrinology, Diabetes & Metabolism | DX: M81.0 Age-related osteoporosis without current pathological fracture (principal) | CPT/HCPCS: 99212 ==

== ENCOUNTER 2022-09-11 10:06 | Outpatient (REF) | payer MEDICARE, SELFPAY ==
--- NOTE | ~2022-09-11 | MM_ITS ---
EXAMINATION: MM SCREENING DIGITAL BREAST TOMOSYNTHESIS, BILATERAL CLINICAL INFORMATION: Screening. Asymptomatic. The lifetime risk of breast cancer based on the Tyrer-Cuzick Model is 3%. COMPARISON: Mammography: 09/05/2021, 07/24/2020, 07/19/2019 TECHNIQUE: Digital breast tomosynthesis is performed in both the craniocaudal and mediolateral oblique views along with computer-aided detection (CAD). Synthesized 2D images are generated from the tomosynthesis. FINDINGS: There are scattered areas of fibroglandular density (ACR BI-RADS breast composition Category b). Fibroglandular and stromal densities are similar to prior studies and there is no developing density or significant mass or architectural abnormality. The axilla and skin contours are unremarkable. No abnormal calcifications on the left. Right breast has increased punctate densities anterior breast likely combination of vascular calcification and digital processing artifact pseudo calcification. Patient will be recalled for additional magnification views to fully characterize. MM/MM tomosynthesis screening BI IMPRESSION: Right: -Increased punctate calcifications anterior breast, suspect vascular calcification and superimposed digital processing artifact pseudo calcification. Left: -No mammographic evidence of malignancy. ASSESSMENT: BI-RADS 0: Incomplete - Need Additional Imaging Evaluation RECOMMENDATION: 1. Additional views of the right breast (magnification CC and magnification ML). 2. Radiology department staff will contact the patient for additional imaging. This patient's information was entered into a reminder system with a target due date for their next mammogram.
== END 2022-09-11 10:07 | disposition home or self-care (01) ==
LOC: HO.MAMMO 10:06
PROVIDERS: PCP Internal Medicine; Visit Provider Internal Medicine
DX: Z12.31 Encounter for screening mammogram for malignant neoplasm of breast (principal)
CPT/HCPCS: 77063; 77067

== ENCOUNTER 2022-09-23 08:56 | Outpatient (REF) | payer MEDICARE, SELFPAY ==
--- NOTE | ~2022-09-23 | MM_ITS ---
EXAMINATION: MM DIAGNOSTIC DIGITAL MAMMOGRAPHY, RIGHT CLINICAL INFORMATION: Recall from screening for question of calcifications versus combination of vascular calcification and pseudocalcification digital processing artifact anterior right breast. COMPARISON: Mammography: 09/11/2022, 09/05/2021, 07/24/2020 TECHNIQUE: Digital mammography is performed in the following views: Magnification CC, magnification ML. FINDINGS: There are scattered areas of fibroglandular density (ACR BI-RADS breast composition Category b). The punctate densities noted on synthesized imaging anterior right breast on recent mammography are not demonstrated on the additional magnification views consistent with pseudocalcification digital processing artifact as suspected. There are some old benign rim calcifications in the anterior medial right breast similar to prior studies. No significant changes. Results are discussed with the patient at time of visit. MM/MM added views RT IMPRESSION: Additional views demonstrate no significant changes from prior exams. No mammographic evidence of malignancy. ASSESSMENT: BI-RADS 2: Benign RECOMMENDATION: Routine annual mammography screening. This patient's information was entered into a reminder system with a target due date for their next mammogram.
== END 2022-09-23 08:57 | disposition home or self-care (01) ==
LOC: HO.MAMMO 08:56
PROVIDERS: PCP Internal Medicine; Visit Provider Internal Medicine
DX: R92.1 Mammographic calcification found on diagnostic imaging of breast (principal)
CPT/HCPCS: 77065

== ENCOUNTER 2022-11-28 09:11 | Outpatient (REF) | payer MEDICARE, SELFPAY ==
[2022-11-28 09:33] LABS: MANUAL DIFF FLAG NO
[2022-11-28 10:01] LABS: Basophils Percent Auto 1.1 % (0-2); Eosinophils Absolute Auto 0.1 X10*3/uL (0.0-0.4); Eosinophils Percent Auto 1.6 % (0-4); Hematocrit 36.6 % (37.0-47.0); Hemoglobin 11.9 g/dl (12.0-16.0); Imm Gran Abs Auto 0.01 X10*3/uL (0.00-0.03); Imm Gran Pct Auto 0.3 % (0.0-0.4); Lymphocytes Absolute Auto 1.5 X10*3/uL (1.2-4.9); Lymphocytes Percent Auto 41.7 % (20-40); Mean Corpuscular HGB Conc 32.5 g/dl (31.0-35.0); Mean Corpuscular Hemoglobin 29.8 pg (27.0-33.0); Mean Corpuscular Volume 91.7 fL (80.0-98.0); Mean Platelet Volume 10.8 fL (9.4-12.3); Monocytes Absolute Auto 0.3 X10*3/uL (0.1-1.2); Monocytes Percent Auto 8.1 % (2-11); Neutrophils Absolute Auto 1.7 x10*3/uL (2.0-8.3); Neutrophils Percent Auto 47.2 % (45-73); Platelet Count 215 X10*3/uL (160-400); Red Blood Count 3.99 X10*6/uL (4.20-5.50); Red Cell Distribution Width 13.2 % (11.0-16.0); White Blood Count 3.7 X10*3/uL (4.8-10.8)
[2022-11-28 10:28] LABS: Appearance Urine Clear; Color Urine Yellow; Glucose Urine UA Negative (Negative); Leukocyte Esterase Urine Negative (Negative); Nitrite Urine Negative (Negative); PH 6.5 (5.0-9.0); Specific Gravity - Urine 1.015 (1.005-1.025); UMIC TRIGGER UACC YES; Urine Blood Trace (Negative); Urine Ketones Negative (Negative); Urine Protein Negative (Neg-Trace)
[2022-11-28 10:33] LABS: Bacteria Urine None Seen (None Seen); Hyaline Casts Urine 0-2 /LPF (0-2); RBC Urine 0-2 /HPF (0-2); Squamous Epithelial Cell Urine 0-2 /HPF (0-2); WBC Urine 0-5 /HPF (0-5)
[2022-11-28 10:40] LABS: Alanine Aminotransferase 11 U/L (0-31); Albumin Level 4.3 g/dL (3.5-5.0); Alkaline Phosphatase 74 U/L (39-117); Anion Gap 11 (12-20); Aspartate Amino Transferase 22 U/L (5-31); Bilirubin Total 0.7 mg/dL (0.0-1.0); Blood Urea Nitrogen 16 mg/dL (9-16); Carbon Dioxide 29 mmol/L (22-29); Chloride 105 mmol/L (96-108); Cholesterol 278 mg/dL; Estimated Glomerular Filt Rate > 60; Glucose Fasting 95 mg/dL (60-99); HDL Cholesterol 92 mg/dL; LDL Cholesterol Calculated 167 mg/dl; Potassium 4.5 mmol/L (3.3-5.1); Sodium 140 mmol/L (135-145); Total Protein 6.7 g/dL (6.5-8.0); Triglycerides 97 mg/dL
[2022-11-28 10:57] LABS: TSH reflex Free T4 1.86 uIU/mL (0.32-4.0); Vitamin D 25-OH Total 43.2 ng/mL (>30)
== END 2022-11-28 09:12 | disposition home or self-care (01) ==
LOC: HO.LAB 09:11
PROVIDERS: PCP Internal Medicine; Visit Provider Internal Medicine
DX: I10 Essential (primary) hypertension (principal); E55.9 Vitamin D deficiency, unspecified; E78.00 Pure hypercholesterolemia, unspecified
CPT/HCPCS: 36415; 80053; 80061; 81001; 81003; 82306; 84443; 85025

== ENCOUNTER 2022-12-04 09:42 | Outpatient (AMB) | payer MEDICARE, SELFPAY ==
[2022-12-04 09:44] VITALS: BP 112/72; PULSE 82; O2SAT 99; BMI 18.3
--- NOTE | 2022-12-04 09:44 | A.OFFPC_ITS ---
Vital Signs 12/04/22 09:44 Height 5 ft 4 in Weight 106 lb 6 oz BMI 18.3 BP 112/72 Blood Pressure Location Lt brachial Position Sitting Pulse 82 Pulse Source Pulse Oximeter Pulse Oximetry (%) 99 Oxygen Delivery Method Room Air Intake Visit Reasons: hyperlipidemia Intake Note: Patient is here to follow up hyperlipidemia. 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 Accompanied by: Self / Same As Patient Allergies morphine [MORPHINE] Allergy (Intermediate, Verified 07/30/23 10:58) HYPOTENSION, abdominal pains atorvastatin Allergy (Unknown, Verified 07/30/23 10:58) headaches,abdominal pains simvastatin Allergy (Unknown, Verified 07/30/23 10:58) myalgia trazodone Adverse Reaction (Unknown, Verified 07/30/23 10:58) headaches, weakness Medication List - Last Reconciled 12/04/22 by Seferino Azar MD alendronate 70 mg PO QWEEK 90 days calcium citrate 500 mg (2 x 250 mg calcium) PO DAILY 90 days cholecalciferol (vitamin D3) 125 mcg PO DAILY 90 days ibuprofen 400 mg PO Q6H PRN omega-3 fatty acids 1,000 mg PO DAILY NS omeprazole 20 mg PO DAILY 90 days polyethylene glycol 3350 (Miralax) 17 grams PO DAILY zolpidem 10 mg PO BEDTIME PRN 30 days Tobacco use date assessed: 12/04/22 Fall risk assessment: No Falls in past year HPI hyperlipidemia HPI Details Patient comes in today for her follow up visit States that she feels okay Denies any headaches or dizziness Denies any chest pains, no SOB No nausea/vomiting, no abdominal pain No change in bowel habits noted Had her follow up labs done last week - to discuss her results [facility] Medical History Fever Anxiety Insomnia Postherpetic neuralgia Varicose veins of leg with pain Primary osteoarthritis, left shoulder Constipation GERD (gastroesophageal reflux disease) Vitamin D deficiency Osteoporosis Pure hypercholesterolemia Surgical History History of colonoscopy Varicose vein of leg History of excision of mass History of total hysterectomy Family History Father Medical history unknown Mother Medical history unknown Son No problems noted. Daughter No problems noted. Social History Household Members: None Housing: Apartment Alcohol intake: never Patient Tobacco Use Status: Never used Tobacco e-Cigarette/Vaping Use: Never Used Second Hand Smoke Exposure: No service: No Current occupational status: disabled Cognitive needs: No Hearing needs: No Vision needs: No Questionnaire PHQ-9 Over the last 2 weeks, how often have you been bothered by any of the following problems? 1. Little interest or pleasure in doing things: not at all 2. Feeling down, depressed, or hopeless: not at all 3. Trouble falling or staying asleep, or sleeping too much: not at all 4. Feeling tired or having little energy: not at all 5. Poor appetite or overeating: not at all 6. Feeling bad about yourself - or that you are a failure or have let yourself or your family down: not at all 7. Trouble concentrating on things, such as reading the newspaper or watching television: not at all 8. Moving or speaking so slowly that other people could have noticed. Or the opposite - being so fidgety or restless that you have been moving around a lot more than usual: not at all 9. Thoughts that you would be better off or of hurting yourself in some way: not at all Total score: 0 Depression Screening Interpretation: Negative 79972 - PHQ-9 Billing: Yes Source: Developed by Drs. Christiano Cuellar, Fabiola Tobin, Adalberto Patel and colleagues, with an educational raudel from [employer]. Thrive Questionnaire Date Thrive assessed: 12/04/22 I am a: Patient What is your living situation today?: I have a steady place to live Within the past 12 months, did the food you bought not last and you didn't have the money to get more?: Never true Within the past 12 months, did you worry whether your food would run out before you got money to buy more?: Never true Do you have trouble paying for medicines?: No Do you have trouble getting transportation to medical appointments?: No Do you have trouble paying your heating and electricity bill?: No Do you have trouble taking care of your child, family member or friend?: No Do you have trouble with day-to-day activities such as bathing, preparing meals, shopping, managing finances, etc.?: No Are you currently unemployed and looking for a job?: No Are you interested in more education?: No Currently or been in a relationship where the following occur: no concerns reported AUDIT C Alcohol Use Questionnaire (AUDIT-C) 1. How often do you have a drink containing alcohol?: Never 3. How often do you have six or more drinks on one occasion?: Never Total Score: 0 Score Reviewed/Action Taken: Yes JACOBO-7 AMB Questionnaire JACOBO-7 Date JACOBO - 7 assessed: 12/04/22 Feeling nervous, anxious, or on edge: 0 = Not at all Not being able to stop or control worryin = Not at all Worrying too much about different things: 0 = Not at all Trouble relaxin = Not at all Being so restless that it is hard to sit still: 0 = Not at all Becoming easily annoyed or irritable: 0 = Not at all Feeling afraid as if something awful might happen: 0 = Not at all Total JACOBO-7 score (0-4 normal; 5-9 mild; 10-14 moderate; 15-21 severe): 0 Source: Developed by Drs. Christiano Cuellar, Fabiola Tobin, Adalberto Patel and colleagues, with an educational raudel from [employer]. JACOBO-7 Assessment Billing JACOBO-7 Assessment Tool: JACOBO-7 Assessment 35398 Review of Systems Const Reports difficulty sleeping (Rx helps), Denies fatigue, Denies fever(s) and Denies headache(s) ENT Denies dysphagia, Denies dizziness, Denies otalgia, Denies headache(s), Denies odynophagia and Denies sore throat Card Denies chest pain, Denies palpitations and Denies dyspnea Resp Denies cough and Denies dyspnea GI Denies abdominal pain, Denies constipation, Denies dysphagia, Denies heartburn, Denies diarrhea, Denies nausea, Denies odynophagia and Denies vomiting Denies difficulty voiding, Denies nocturia and Denies dysuria Musc Reports arthralgias (on and off) Skin/Breast Denies rash Neuro Denies dizziness and Denies headache(s) Endo Denies fatigue and Denies palpitations Physical exam (Primary Care) Vital Signs: Last Vital Signs Pulse 82 12/04/22 09:44 BP 112/72 12/04/22 09:44 Pulse Ox 99 12/04/22 09:44 Oxygen Delivery Method Room Air 12/04/22 09:44 BMI result Body Mass Index 18.3 Tobacco/Smoking Status: Tobacco use Status Tobacco use date assessed 12/04/22 12/04/22 09:50 Patient Tobacco Use Status Never used Tobacco 12/04/22 09:50 e-Cigarette/Vaping Use Never Used 12/04/22 09:50 PHQ-9: PHQ-9 Score PHQ-9: Total score 0 12/04/22 10:41 Depression Screening Interpretation: Negative Thrive Assessment: Date of Thrive Assessment Date Thrive assessed 12/04/22 12/04/22 09:50 Currently or been in a relationship where the following occur: no concerns reported Const General: no acute distress and alert HENMT Ears: TM's normal bilaterally and EAC's normal Throat: Yes posterior oropharynx normal and Yes tonsils normal (no TP congestion noted) Neck Neck: Yes no lymphadenopathy and Yes supple Resp Auscultation: clear to auscultation bilaterally, no rales and no wheezes Cardio Rate: regular rate Rhythm: regular rhythm Heart sounds: no murmurs GI Palpation (GI): Soft to palpation, nontender and No hepatosplenomegaly present Extrem General: Yes no clubbing, cyanosis or edema Results Reviewed Results Reviewed: Laboratory Tests 11/28/22 11/28/22 11/28/22 09:28 09:31 09:31 WBC 3.7 L Hgb 11.9 L Hct 36.6 L Plt Count 215 Sodium 140 Potassium 4.5 Creatinine 0.67 Estimated GFR > 60 Fasting Glucose 95 Calcium 10.0 AST 22 ALT 11 Triglycerides 97 Cholesterol 278 LDL Cholesterol, Calc 167 HDL Cholesterol 92 25-OH Vitamin D Total 43.2 TSH 1.86 Ur Specific [place] 1.015 Urine Protein Negative Urine Glucose (UA) Negative Urine Blood Trace H Assessment and Plan Assessment & Plan (1) Pure hypercholesterolemia: Comment: Has been unable to tolerate STATINS in the past Code(s): E78.00 - Pure hypercholesterolemia, unspecified Plan: Results of her labs done last week reviewed and discussed with patient - lipids are still elevated but her LDL and HDL cholesterol numbers have improved slightly from previous (LDL is now at 167 mg/dl) Reinforced low cholesterol diet Has not been able to tolerate any statins in the past so will continue to hold off on prescribing any cholesterol-lowering Rx Will recheck her labs and fasting lipids in 4 months for follow up (2) Osteoporosis: Code(s): M81.0 - Age-related osteoporosis without current pathological fracture Qualifiers: Osteoporosis type: age-related Presence of current pathological fracture: without current pathological fracture Qualified Code(s): M81.0 - Age- related osteoporosis without current pathological fracture Plan: Repeat BMD last done on 05/15/2022 revealed (+) significant osteoporosis, with no significant change from previous BMD in 2019 Continue Alendronate 70 mg once a week; patient has declined injectable a ntiresorptive therapy, which was recommended as first-line Tx for her previously Reminded to continue taking her oral Calcium and Vitamin D supplements daily Follow up with endocrinology (Dr. Montenegro) as scheduled (3) Vitamin D deficiency: Code(s): E55.9 - Vitamin D deficiency, unspecified Plan: Corrected - continue Vitamin D3 5000 units QD (4) GERD (gastroesophageal reflux disease): Code(s): K21.9 - Gastro-esophageal reflux disease without esophagitis Qualifiers: Esophagitis presence: without esophagitis Qualified Code(s): K21.9 - Gastro-esophageal reflux disease without esophagitis Plan: Dietary restrictions reinforced Continue Omeprazole 20 mg QD PRN (5) Constipation: Code(s): K59.00 - Constipation, unspecified Qualifiers: Constipation type: unspecified constipation type Qualified Code(s): K59.00 - Constipation, unspecified Plan: Had a bout of severe constipation last year and she ended up with some rectal bleeding, which has since resolved and has not recurred She is encouraged to continue increased oral fluids and dietary fiber Continue Miralax 17 gm QD Patient had a normal colonoscopy with Dr. Shi back in 2013 and is due for repeat in 10 years (2023) but because of her recent rectal bleeding, was recommended to at least get a Cologuard done last year (2021), which came back negative (6) Primary osteoarthritis, left shoulder: Code(s): M19.012 - Primary osteoarthritis, left shoulder Plan: X-rays of the left shoulder done last year showed (+) mild OA changes in the AC joint Patient is reminded to continue with regular shoulder exercises to help manage pain more effectively -? patient states that shoulder has not been bothering her as much lately To consider physical therapy and/ or orthopedics referral if symptoms increase or worsen (7) Varicose veins of leg with pain: Code(s): I83.819 - Varicose veins of unspecified lower extremity with pain Qualifiers: Laterality: unspecified laterality Qualified Code(s): I83.819 - Varicose veins of unspecified lower extremity with pain Plan: Follow up with vascular surgery (Dr. Glenn Anderson) as scheduled or as needed (8) Insomnia: Code(s): G47.00 - Insomnia, unspecified Qualifiers: Insomnia type: unspecified Qualified Code(s): G47.00 - Insomnia, unspecified Plan: Sleep hygiene reinforced Continue Zolpidem 10 mg once a day at bedtime as needed (9) Anxiety: Code(s): F41.9 - Anxiety disorder, unspecified Plan: Continue Hydroxyzine 25 mg 3 times a day as needed Plan Follow up in 4 months Orders: Orders Complete Blood Count Auto Diff 4 Months I10 - Essential (primary) hypertension UA CC w/rflx Micro + Cult 4 Months R30.0 - Dysuria TSH reflex Free T4 4 Months E78.00 - Pure hypercholesterolemia, unspecified Comprehensive [place]. Panel Fast 4 Months E78.00 - Pure hypercholesterolemia, unspecified Lipid Panel 4 Months E78.00 - Pure hypercholesterolemia, unspecified Vitamin D 25-OH Total 4 Months E55.9 - Vitamin D deficiency, unspecified Coding Level of Care Code Est Pt Level 4 (87191) Diagnoses Pure hypercholesterolemia E78.00 Age-related osteoporosis without current pathological fracture M81.0 Osteoporosis type: age-related Presence of current pathological fracture: without current pathological fracture Vitamin D deficiency E55.9 Gastroesophageal reflux disease without esophagitis K21.9 Esophagitis presence: without esophagitis Constipation, unspecified constipation type K59.00 Constipation type: unspecified constipation type Primary osteoarthritis, left shoulder M19.012 Varicose veins of lower extremity with pain, unspecified laterality I83.819 Laterality: unspecified laterality Insomnia, unspecified type G47.00 Insomnia type: unspecified Anxiety F41.9 Additional Codes JACOBO-7 Assessment Billing - JACOBO-7 Assessment Tool: JACOBO-7 Assessment [id number] ([id number])
== END 2022-12-04 10:35 | disposition home or self-care (01) ==
LOC: HO.HMGH 09:42
PROVIDERS: PCP Internal Medicine; Visit Provider Internal Medicine
DX: E78.00 Pure hypercholesterolemia, unspecified (principal); M81.0 Age-related osteoporosis without current pathological fracture; E55.9 Vitamin D deficiency, unspecified; K21.9 Gastro-esophageal reflux disease without esophagitis; K59.00 Constipation, unspecified; M19.012 Primary osteoarthritis, left shoulder; I83.819 Varicose veins of unspecified lower extremity with pain; G47.00 Insomnia, unspecified; F41.9 Anxiety disorder, unspecified
CPT/HCPCS: 99214

== ENCOUNTER 2023-03-18 19:15 | Emergency (ER) | payer MEDICARE, SELFPAY ==
--- NOTE | ~2023-03-18 | CT_ITS ---
EXAMINATION: CT ANGIOGRAM OF THE ABDOMEN AND PELVIS WITHOUT AND WITH CONTRAST CLINICAL INDICATION: GI bleed. COMPARISON: 05/07/2017. TECHNIQUE: Prior to contrast administration, noncontrast localization images were obtained. Subsequently, multidetector volumetric imaging was performed from the abdominal inlet to the pubic symphysis following the administration of 80 mL Omnipaque 350 intravenous contrast. This was followed by multidetector acquisition of the abdomen and pelvis. No contrast reaction reported Sagittal, coronal, and MIP oblique sagittal reformatted images were obtained on the CT workstation, uploaded to PACS, and reviewed. This CT examination was performed using dose optimization techniques as appropriate, variously including the following: *Automated exposure control *Adjustment of mA and/or kV according to patient size (this includes techniques or standardized protocols for targeted exams where dose is matched to indication/reason for exam; i.e. extremities or head) *Use of iterative reconstruction technique Total exam dose-length product 379 mGy-cm FINDINGS: QUALITY OF STUDY/CONTRAST BOLUS: Satisfactory. LUNG BASES: Unremarkable. LIVER, GALLBLADDER, AND BILIARY TREE: The liver is normal in size, shape, and attenuation. No biliary ductal dilatation is present. Gallbladder is normal in appearance. PANCREAS: Unremarkable. SPLEEN: Splenic calcifications are noted. ADRENAL GLANDS: Unremarkable. KIDNEYS AND URETERS: The kidneys are normal in size and position. No renal calculi are seen. No hydronephrosis or hydroureter. BLADDER: Unremarkable. GASTROINTESTINAL TRACT: There is thickening of the descending and sigmoid colon. There is no contrast extravasation to suggest active GI bleeding. The appendix is visualized and is within normal limits. PERITONEUM: Unremarkable. ABDOMINAL WALL: Unremarkable. LYMPH NODES: None. VASCULAR: Unremarkable. PELVIC VISCERA: Unremarkable. There is minimal free fluid within the pelvis. OSSEOUS STRUCTURES: Unremarkable. CT/CT gi bleed abd pel wo/w IVcon IMPRESSION: 1. Thickening of the descending and sigmoid colon consistent with a colitis of uncertain etiology. 2. No evidence for active GI bleeding.
[2023-03-18 19:53] VITALS: BP 125/56; PULSE 74; RESP 18; TEMP 36.8; O2SAT 99; BMI 18.1
--- NOTE | 2023-03-18 19:53 | ED_ITS ---
HPI - General Adult General Chief complaint: Abdominal Pain Stated complaint: Abdominal pain/Diarrhea Time Seen by Provider: 03/18/23 21:47 Source: patient and family Mode of arrival: ambulatory Limitations: no limitations History of Present Illness HPI narrative: patient comes to the emergency room accompanied by family. Patient states that approximately 10 hours ago, patient had an episode of diarrhea, patient did not think much of it. However, subsequently she had 4 bowel movements with diarrhea and blood. Patient states that she has abdominal cramping that is worse right before having a bowel movement but no significant abdominal pain. Patient denies nausea or vomiting, no URI or UTI symptoms Related Data Home Medications Medication Instructions Recorded Confirmed ibuprofen 400 mg tablet 400 mg PO Q6H PRN pain 08/08/20 12/04/22 polyethylene glycol 3350 17 17 g PO DAILY 08/13/20 12/04/22 gram/dose oral powder (Miralax) Previous Rx's Medication Instructions Recorded calcium citrate 500 mg PO DAILY 90 days #180 tabs 11/30/21 omega-3 fatty acids 1,000 mg 1,000 mg PO DAILY Hyperlipidemia 06/04/22 capsule #90 caps alendronate 70 mg tablet 70 mg PO QWEEK 90 days #13 tabs 08/22/22 omeprazole 20 mg capsule,delayed 20 mg PO DAILY 90 days #90 caps 08/27/22 release zolpidem 10 mg tablet 10 mg PO BEDTIME PRN insomnia 30 08/27/22 days #30 tabs cholecalciferol (vitamin D3) 125 125 mcg PO DAILY 90 days #90 caps 11/24/22 mcg (5,000 unit) capsule levofloxacin 500 mg tablet 500 mg PO DAILY #9 tabs 03/19/23 metronidazole 500 mg tablet 500 mg PO BID #19 tabs 03/19/23 Allergies Allergy/AdvReac Type Severity Reaction Status Date / Time morphine [MORPHINE] Allergy Intermediate HYPOTENSION, Verified 03/21/23 10:17 abdominal pains atorvastatin Allergy Unknown headaches,abdominal Verified 03/21/23 10:17 pains simvastatin Allergy Unknown myalgia Verified 03/21/23 10:17 trazodone AdvReac Unknown headaches, Verified 03/21/23 10:17 weakness Review of Systems Review of Systems: Constitutional : No Weight loss, No Fever, No Chills, No Night Sweats, No Fatigue, No Malaise ENT/Mouth : No Hearing loss, No Ear Pain, No Nasal Congestion, No Sinus Pain, No Hoarseness, No sore throat, No Rhinorrhea, No Swallowing Difficulty Eyes: No Eye Pain, No Swelling, No Redness, No Foreign Body, No Discharge, No Vision Changes Cardiovascular : No Chest Pain, No SOB, No Dyspnea on Exertion, No Orthopnea, No Edema, No Palpitations Respiratory : No Cough, No Sputum, No Wheezing, No Smoke Exposure, No Dyspnea Gastrointestinal : No Nausea, No Vomiting, complaining of bloody diarrhea, abdominal cramping, no significant abdominal pain Genitourinary : no irregular bleeding, No Dysuria, No Urinary Frequency, No Hematuria, No Urinary Incontinence, No Urgency, No Flank Pain, No Urinary Flow Changes, No Hesitancy Musculoskeletal : No joint pain, No Myalgias, No Joint Swelling Skin : No Skin Lesions, No rash Neuro : No Weakness, No Numbness, No Paresthesias, No Loss of Consciousness, No Dizziness, No Headache Psych : No Anxiety/Panic, No Depression, No SI/HI/AH/VH, No Social Issues, Heme/Lymph: No Bruising, No Bleeding,No Lymphadenopathy Endocrine : No Polyuria, No Polydipsia, No Temperature Intolerance PMF Past Medical History Medical History Anxiety Constipation Fever GERD (gastroesophageal reflux disease) Insomnia Osteoporosis Postherpetic neuralgia Primary osteoarthritis, left shoulder Pure hypercholesterolemia Varicose veins of leg with pain Vitamin D deficiency Surgical History History of colonoscopy History of excision of mass History of total hysterectomy Varicose vein of leg Family History Family History Father Medical history unknown Mother Medical history unknown Son No problems noted. Daughter No problems noted. Social History Social History Household Members: None Housing: Apartment Alcohol intake: never Patient Tobacco Use Status: Never used Tobacco e-Cigarette/Vaping Use: Never Used Second Hand Smoke Exposure: No service: No Current occupational status: disabled Cognitive needs: No Hearing needs: No Vision needs: No Physical Exam ED Vital Signs: Vital Signs - 24 hr 03/18/23 19:53 03/18/23 21:31 03/18/23 23:24 Temperature 98.3 F 98.0 F 97.9 F Pulse Rate 74 70 87 Respiratory Rate 18 18 18 Blood Pressure 125/56 L 125/71 127/70 Pulse Oximetry 99 98 98 Oxygen Delivery Method Room Air Room Air Room Air 03/19/23 02:07 Temperature 98.1 F Pulse Rate 72 Respiratory Rate 18 Blood Pressure 122/65 Pulse Oximetry 98 Oxygen Delivery Method Room Air BMI result Body Mass Index 18.1 Const Other: Appearance: Alert. Oriented X3. No acute distress. Eyes: Pupils equal, round and reactive to light. ENT: Pharynx normal. Neck: Normal inspection. Neck supple. No lymph nodes noted. No crepitus CVS: Normal heart rate and rhythm. Pulses normal. Normal S1 and S2 Respiratory: No respiratory distress. Breath sounds normal. No Wheezing. No rales Abdomen: Soft and nontender. No rigidity. No distention. patient has mucousy bloody rectal discharge Skin: Skin warm and dry. Normal skin color. Normal skin turgor. Extremities: No lower extremity edema. No Lacerations. No Rash Neuro: Oriented X 3. No motor deficit. No sensory deficit. Moving all extremities. No slurred speech. CN 2 through 12 grossly intact Psych: calm, cooperative, normal affect Course Course Course Narrative: This is a rapid medical exam: Additional HPI, ROS, PE not included below will be deferred to primary provider. Patient is a 73-year-old female with history of GERD, constipation presenting to the emergency department with complaint of abdominal pain which began around noon. She then developed sweating, diarrhea, and had 4 episodes of bright red blood in her stool. Denies dizziness, lightheadedness. Reports feeling weak. She denies chest pain or dyspnea. States she typically suffers from constipation. Medications Administered Discontinued Medications Generic Name Dose Route Start Last Admin Trade Name Freq PRN Reason Stop Dose Admin Sodium Chloride 1,000 mls @ 999 mls/hr 03/18/23 22:36 03/19/23 00:20 Ns IVCONT 03/18/23 23:36 Infused .Q1H1M ONE Infusion Iohexol 80 ml 03/19/23 00:32 03/19/23 00:32 Iohexol 350 Mg/Ml 100 Ml Infus..Btl IV 03/19/23 00:33 80 ml ONCE ONE Administration Levofloxacin 500 mg 03/19/23 03:07 03/19/23 03:20 Levofloxacin 500 Mg Tablet PO 03/19/23 03:08 500 mg ONCE ONE Administration Metronidazole 500 mg 03/19/23 03:07 03/19/23 03:20 Metronidazole 500 Mg Tablet PO 03/19/23 03:08 500 mg ONCE ONE Administration Medical Decision Making Medical Decision Making [facility] Narrative: - my interpretation of labs: White blood cell count within normal limits, chemistry no abnormalities, occult blood positive - CT scan of the abdomen pelvis my interpretation: No SBO, no obvious source of GI bleed - -I discussed the CT report with the patient, patient likely has colitis. Patient states the abdominal pain is minimal, the rectal bleeding is scant still present. -I discussed with the patient that admission is recommended, ideally we should admit her, patient states that she feels well enough to go home, if anything changes she will return to the emergency room. -patient's white blood cell count normal, vitals stable -patient with a 1st dose of levofloxacin and metronidazole in the ED Differential Diagnosis Differential Diagnoses: The differential diagnosis associated with the presentation includes (Colitis, upper GI bleed, lower GI bleed) Admission/Observation Consideration of admission/observation: Escalation of care including admission/observation considered (Admission was offered, patient respectfully declined) Lab Data [facility] Lab Attestation statement: I reviewed the patient's lab results. 03/18/23 20:33 03/18/23 20:33 Labs: Lab Results 03/18/23 03/18/23 03/18/23 Range/Units 20:33 20:33 20:33 WBC 7.4 (4.8-10.8) X10*3/uL RBC 3.85 L (4.20-5.50) X10*6/uL Hgb 11.7 L (12.0-16.0) g/dl Hct 35.5 L (37.0-47.0) % MCV 92.2 (80.0-98.0) fL MCH 30.4 (27.0-33.0) pg MCHC 33.0 (31.0-35.0) g/dl RDW 13.3 (11.0-16.0) % Plt Count 181 (160-400) X10*3/uL MPV 11.4 (9.4-12.3) fL Immature Gran % (Auto) 0.3 (0.0-0.4) % Neut % (Auto) 78.3 H (45-73) % Lymph % (Auto) 15.9 L (20-40) % [place] % (Auto) 5.4 (2-11) % Eos % (Auto) 0.0 (0-4) % Baso % (Auto) 0.1 (0-2) % Lymph # (Auto) 1.2 (1.2-4.9) X10*3/uL [place] # (Auto) 0.4 (0.1-1.2) X10*3/uL Eos # (Auto) 0.0 (0.0-0.4) X10*3/uL Baso # (Auto) 0.0 (0.0-0.2) X10*3/uL Abs Immat Gran (auto) 0.02 (0.00-0.03) X10*3/uL Absolute Neuts (auto) 5.8 (2.0-8.3) x10*3/uL Absolute Nucleated RBC 0.000 (0.0-0.012) X10*3/uL Nucleated RBC % (auto) 0.0 (0.0-0.2) /100WBC PT 11.1 (11.1-13.3) SEC INR 0.9 (0.9-1.1) APTT 27.7 (26.0-36.4) SEC Sodium 138 (135-145) mmol/L Potassium 4.1 (3.3-5.1) mmol/L Chloride 106 (96-108) mmol/L Carbon Dioxide 26 (22-29) mmol/L Anion Gap 10 L (12-20) BUN 17 H (9-16) mg/dL Creatinine 0.74 (0.5-1.4) mg/dL Estim Creat Clear Calc 50.9 Estimated GFR > 60 Random Glucose 107 (60-115) mg/dL Calcium 9.9 (8.4-10.2) mg/dL Magnesium 2.3 (1.6-2.6) mg/dL Total Bilirubin 0.5 (0.0-1.0) mg/dL AST 23 (5-31) U/L ALT 10 (0-31) U/L Alkaline Phosphatase 76 (39-117) U/L Total Protein 7.3 (6.5-8.0) g/dL Albumin 4.4 (3.5-5.0) g/dL Lipase 78 (8-78) U/L Urine Color Urine Appearance Urine pH (5.0-9.0) Ur Specific [place] (1.005-1.025) Urine Protein (Neg-Trace) mg/dL Urine Glucose (UA) (Negative) mg/dL Urine Ketones (Negative) mg/dL Urine Blood (Negative) Urine Nitrite (Negative) Ur Leukocyte Esterase (Negative) Urine RBC (0-2) /HPF Urine WBC (0-5) /HPF Ur Squamous Epith Cells (0-2) /HPF Urine Bacteria (None Seen) Hyaline Casts (0-2) /LPF Stool Occult Blood (NEGATIVE) Stl C. cayetanensis PCR (Not Detect.) Stool Rotavirus A PCR (Not Detect.) Stl Adenov F 40/41 PCR (Not Detect.) Stool Astrovirus (PCR) (Not Detect.) Stool Campylobacter PCR (Not Detect.) Stool Cryptosporidium PCR (Not Detect.) Stl Sh Tox Pr E STEC PCR (Not Detect.) Stool E coli O157 PCR (Not Detect.) Stl Enterotoxigenic E PCR (Not Detect.) Stool EPEC (PCR) (Not Detect.) Stool EAEC (PCR) (Not Detect.) Stl E. histolytica PCR (Not Detect.) Stool Giardia Lamblia PCR (Not Detect.) Stl P. shigelloides PCR (Not Detect.) Stool Salmonella PCR (Not Detect.) Stool Sapovirus (PCR) (Not Detect.) Stl Shigella/EIEC PCR (Not Detect.) St Y.enterocolitica PCR (Not Detect.) Stool Vibrio (PCR) (Not Detect.) Stl Vibrio cholerae PCR (Not Detect.) Stl Norovirus GI/GII PCR (Not Detect.) C. difficile Tox B Gene (Negative) Blood Type Antibody Screen 03/18/23 03/18/23 03/18/23 Range/Units 20:33 21:41 22:23 WBC (4.8-10.8) X10*3/uL RBC (4.20-5.50) X10*6/uL Hgb (12.0-16.0) g/dl Hct (37.0-47.0) % MCV (80.0-98.0) fL MCH (27.0-33.0) pg MCHC (31.0-35.0) g/dl RDW (11.0-16.0) % Plt Count (160-400) X10*3/uL MPV (9.4-12.3) fL Immature Gran % (Auto) (0.0-0.4) % Neut % (Auto) (45-73) % Lymph % (Auto) (20-40) % [place] % (Auto) (2-11) % Eos % (Auto) (0-4) % Baso % (Auto) (0-2) % Lymph # (Auto) (1.2-4.9) X10*3/uL [place] # (Auto) (0.1-1.2) X10*3/uL Eos # (Auto) (0.0-0.4) X10*3/uL Baso # (Auto) (0.0-0.2) X10*3/uL Abs Immat Gran (auto) (0.00-0.03) X10*3/uL Absolute Neuts (auto) (2.0-8.3) x10*3/uL Absolute Nucleated RBC (0.0-0.012) X10*3/uL Nucleated RBC % (auto) (0.0-0.2) /100WBC PT (11.1-13.3) SEC INR (0.9-1.1) APTT (26.0-36.4) SEC Sodium (135-145) mmol/L Potassium (3.3-5.1) mmol/L Chloride (96-108) mmol/L Carbon Dioxide (22-29) mmol/L Anion Gap (12-20) BUN (9-16) mg/dL Creatinine (0.5-1.4) mg/dL Estim Creat Clear Calc Estimated GFR Random Glucose (60-115) mg/dL Calcium (8.4-10.2) mg/dL Magnesium (1.6-2.6) mg/dL Total Bilirubin (0.0-1.0) mg/dL AST (5-31) U/L ALT (0-31) U/L Alkaline Phosphatase (39-117) U/L Total Protein (6.5-8.0) g/dL Albumin (3.5-5.0) g/dL Lipase (8-78) U/L Urine Color Yellow Urine Appearance Clear Urine pH 5.5 (5.0-9.0) Ur Specific [place] 1.020 (1.005-1.025) Urine Protein Negative (Neg-Trace) mg/dL Urine Glucose (UA) Negative (Negative) mg/dL Urine Ketones Trace (Negative) mg/dL Urine Blood Small (1+) H (Negative) Urine Nitrite Negative (Negative) Ur Leukocyte Esterase Negative (Negative) Urine RBC 0-2 (0-2) /HPF Urine WBC 0-5 (0-5) /HPF Ur Squamous Epith Cells 0-2 (0-2) /HPF Urine Bacteria None Seen (None Seen) Hyaline Casts 0-2 (0-2) /LPF Stool Occult Blood (NEGATIVE) Stl C. cayetanensis PCR (Not Detect.) Stool Rotavirus A PCR (Not Detect.) Stl Adenov F 40/41 PCR (Not Detect.) Stool Astrovirus (PCR) (Not Detect.) Stool Campylobacter PCR (Not Detect.) Stool Cryptosporidium PCR (Not Detect.) Stl Sh Tox Pr E STEC PCR (Not Detect.) Stool E coli O157 PCR (Not Detect.) Stl Enterotoxigenic E PCR (Not Detect.) Stool EPEC (PCR) (Not Detect.) Stool EAEC (PCR) (Not Detect.) Stl E. histolytica PCR (Not Detect.) Stool Giardia Lamblia PCR (Not Detect.) Stl P. shigelloides PCR (Not Detect.) Stool Salmonella PCR (Not Detect.) Stool Sapovirus (PCR) (Not Detect.) Stl Shigella/EIEC PCR (Not Detect.) St Y.enterocolitica PCR (Not Detect.) Stool Vibrio (PCR) (Not Detect.) Stl Vibrio cholerae PCR (Not Detect.) Stl Norovirus GI/GII PCR (Not Detect.) C. difficile Tox B Gene NEGATIVE (Negative) Blood Type O Positive Antibody Screen NEGATIVE 03/18/23 03/18/23 Range/Units 22:23 22:23 WBC (4.8-10.8) X10*3/uL RBC (4.20-5.50) X10*6/uL Hgb (12.0-16.0) g/dl Hct (37.0-47.0) % MCV (80.0-98.0) fL MCH (27.0-33.0) pg MCHC (31.0-35.0) g/dl RDW (11.0-16.0) % Plt Count (160-400) X10*3/uL MPV (9.4-12.3) fL Immature Gran % (Auto) (0.0-0.4) % Neut % (Auto) (45-73) % Lymph % (Auto) (20-40) % [place] % (Auto) (2-11) % Eos % (Auto) (0-4) % Baso % (Auto) (0-2) % Lymph # (Auto) (1.2-4.9) X10*3/uL [place] # (Auto) (0.1-1.2) X10*3/uL Eos # (Auto) (0.0-0.4) X10*3/uL Baso # (Auto) (0.0-0.2) X10*3/uL Abs Immat Gran (auto) (0.00-0.03) X10*3/uL Absolute Neuts (auto) (2.0-8.3) x10*3/uL Absolute Nucleated RBC (0.0-0.012) X10*3/uL Nucleated RBC % (auto) (0.0-0.2) /100WBC PT (11.1-13.3) SEC INR (0.9-1.1) APTT (26.0-36.4) SEC Sodium (135-145) mmol/L Potassium (3.3-5.1) mmol/L Chloride (96-108) mmol/L Carbon Dioxide (22-29) mmol/L Anion Gap (12-20) BUN (9-16) mg/dL Creatinine (0.5-1.4) mg/dL Estim Creat Clear Calc Estimated GFR Random Glucose (60-115) mg/dL Calcium (8.4-10.2) mg/dL Magnesium (1.6-2.6) mg/dL Total Bilirubin (0.0-1.0) mg/dL AST (5-31) U/L ALT (0-31) U/L Alkaline Phosphatase (39-117) U/L Total Protein (6.5-8.0) g/dL Albumin (3.5-5.0) g/dL Lipase (8-78) U/L Urine Color Urine Appearance Urine pH (5.0-9.0) Ur Specific [place] (1.005-1.025) Urine Protein (Neg-Trace) mg/dL Urine Glucose (UA) (Negative) mg/dL Urine Ketones (Negative) mg/dL Urine Blood (Negative) Urine Nitrite (Negative) Ur Leukocyte Esterase (Negative) Urine RBC (0-2) /HPF Urine WBC (0-5) /HPF Ur Squamous Epith Cells (0-2) /HPF Urine Bacteria (None Seen) Hyaline Casts (0-2) /LPF Stool Occult Blood POSITIVE (NEGATIVE) Stl C. cayetanensis PCR Not Detected (Not Detect.) Stool Rotavirus A PCR Not Detected (Not Detect.) Stl Adenov F 40/41 PCR Not Detected (Not Detect.) Stool Astrovirus (PCR) Not Detected (Not Detect.) Stool Campylobacter PCR Not Detected (Not Detect.) Stool Cryptosporidium PCR Not Detected (Not Detect.) Stl Sh Tox Pr E STEC PCR Not Detected (Not Detect.) Stool E coli O157 PCR Not applicable (Not Detect.) Stl Enterotoxigenic E PCR Not Detected (Not Detect.) Stool EPEC (PCR) Detected A (Not Detect.) Stool EAEC (PCR) Not Detected (Not Detect.) Stl E. histolytica PCR Not Detected (Not Detect.) Stool Giardia Lamblia PCR Not Detected (Not Detect.) Stl P. shigelloides PCR Not Detected (Not Detect.) Stool Salmonella PCR Not Detected (Not Detect.) Stool Sapovirus (PCR) Not Detected (Not Detect.) Stl Shigella/EIEC PCR Not Detected (Not Detect.) St Y.enterocolitica PCR Not Detected (Not Detect.) Stool Vibrio (PCR) Not Detected (Not Detect.) Stl Vibrio cholerae PCR Not Detected (Not Detect.) Stl Norovirus GI/GII PCR Not Detected (Not Detect.) C. difficile Tox B Gene (Negative) Blood Type Antibody Screen Independent Interpretation I performed an independent interpretation of an: CT Scan Radiology Impression Discussion of test interpretation with radiology: I have reviewed the radiologist's reading. Radiologist Impression: FINDINGS: QUALITY OF STUDY/CONTRAST BOLUS: Satisfactory. LUNG BASES: Unremarkable. LIVER, GALLBLADDER, AND BILIARY TREE: The liver is normal in size, shape, and attenuation. No biliary ductal dilatation is present. Gallbladder is normal in appearance. PANCREAS: Unremarkable.? SPLEEN: Splenic calcifications are noted.? ADRENAL GLANDS: Unremarkable.? KIDNEYS AND URETERS: The kidneys are normal in size and position. No renal calculi are seen. No hydronephrosis or hydroureter. BLADDER: Unremarkable.? GASTROINTESTINAL TRACT: There is thickening of the descending and sigmoid colon. There is no contrast extravasation to suggest active GI bleeding. The appendix is visualized and is within normal limits. PERITONEUM: Unremarkable. ABDOMINAL WALL: Unremarkable.? LYMPH NODES: None. VASCULAR: Unremarkable. PELVIC VISCERA: Unremarkable. There is minimal free fluid within the pelvis. OSSEOUS STRUCTURES: Unremarkable.? CT/CT gi bleed abd pel wo/w IVcon IMPRESSION: ? 1. Thickening of the descending and sigmoid colon consistent with a colitis of uncertain etiology. ? 2. No evidence for active GI bleeding. ? Independent Historian Clinical information obtained from an independent historian. History obtained from or confirmed by: Friend Critical Care Time Critical Care Time Critical Care Time: Yes Total Critical Care Time: 60 Attestation: I have personally provided critical care time. Time includes review of lab data, radiology results, discussion with consultants, and monitoring for potential decompensation. Intervention performed as documented. Discharge Plan Discharge Clinical Impression: Colitis Patient Disposition: Home, Self-Care Instructions: Colitis (ED) Additional Instructions: Please follow-up with your primary care physician tomorrow. If you have any worsening or new symptoms, please return to the emergency room or call 911 Prescriptions: New levofloxacin 500 mg tablet 500 mg PO DAILY Qty: 9 0RF metronidazole 500 mg tablet 500 mg PO BID Qty: 19 0RF No Action calcium citrate 250 mg calcium tablet 500 mg PO DAILY 90 Days Qty: 180 1RF omega-3 fatty acids 1,000 mg capsule 1,000 mg PO DAILY Qty: 90 3RF cholecalciferol (vitamin D3) 125 mcg (5,000 unit) capsule 125 mcg PO DAILY 90 Days Qty: 90 1RF ibuprofen 400 mg tablet 400 mg PO Q6H PRN (Reason: pain) polyethylene glycol 3350 [Miralax] 17 gram/dose powder 17 g PO DAILY zolpidem 10 mg tablet 10 mg PO BEDTIME PRN (Reason: insomnia) 30 Days Qty: 30 2RF omeprazole 20 mg capsule,delayed release(DR/EC) 20 mg PO DAILY 90 Days Qty: 90 3RF alendronate 70 mg tablet 70 mg PO QWEEK 90 Days Qty: 13 4RF Interventions: ED Discharge Assessment Last Done: 03/19/23 03:31 Discharge Date/Time: 03/19/23 03:31
--- NOTE | 2023-03-18 19:59 | ECG_ITS ---
Test Reason : ABDPAIN Blood Pressure : / mmHG Vent. Rate : 071 BPM Atrial Rate : 071 BPM P-R Int : 146 ms QRS Dur : 080 ms QT Int : 376 ms P-R-T Axes : 059 057 054 degrees QTc Int : 408 ms Normal sinus rhythm Normal ECG When compared with ECG of 05-JUL-2021 19:56, No significant change was found Referred By: Lupis Bender Electronically Signed By:SIOMARA HERNÁNDEZ
[2023-03-18 20:38] LABS: MANUAL DIFF FLAG NO
[2023-03-18 20:39] LABS: Basophils Percent Auto 0.1 % (0-2); Hematocrit 35.5 % (37.0-47.0); Hemoglobin 11.7 g/dl (12.0-16.0); Imm Gran Abs Auto 0.02 X10*3/uL (0.00-0.03); Imm Gran Pct Auto 0.3 % (0.0-0.4); Lymphocytes Absolute Auto 1.2 X10*3/uL (1.2-4.9); Lymphocytes Percent Auto 15.9 % (20-40); Mean Corpuscular Hemoglobin 30.4 pg (27.0-33.0); Mean Corpuscular Volume 92.2 fL (80.0-98.0); Mean Platelet Volume 11.4 fL (9.4-12.3); Monocytes Absolute Auto 0.4 X10*3/uL (0.1-1.2); Monocytes Percent Auto 5.4 % (2-11); Neutrophils Absolute Auto 5.8 x10*3/uL (2.0-8.3); Neutrophils Percent Auto 78.3 % (45-73); Platelet Count 181 X10*3/uL (160-400); Red Blood Count 3.85 X10*6/uL (4.20-5.50); Red Cell Distribution Width 13.3 % (11.0-16.0); White Blood Count 7.4 X10*3/uL (4.8-10.8)
[2023-03-18 20:51] LABS: Alanine Aminotransferase 10 U/L (0-31); Albumin Level 4.4 g/dL (3.5-5.0); Alkaline Phosphatase 76 U/L (39-117); Anion Gap 10 (12-20); Aspartate Amino Transferase 23 U/L (5-31); Bilirubin Total 0.5 mg/dL (0.0-1.0); Blood Urea Nitrogen 17 mg/dL (9-16); Calcium 9.9 mg/dL (8.4-10.2); Carbon Dioxide 26 mmol/L (22-29); Chloride 106 mmol/L (96-108); Creatinine Clr Calc Pharmacy 50.9; Estimated Glomerular Filt Rate > 60; Glucose Random 107 mg/dL (60-115); Lipase 78 U/L (8-78); Magnesium 2.3 mg/dL (1.6-2.6); Potassium 4.1 mmol/L (3.3-5.1); Sodium 138 mmol/L (135-145); Total Protein 7.3 g/dL (6.5-8.0)
[2023-03-18 21:07] LABS: INTERNATIONAL NORM RATIO 0.9 (0.9-1.1); Prothrombin Time 11.1 SEC (11.1-13.3)
[2023-03-18 21:10] LABS: Partial Thromboplastin Time 27.7 SEC (26.0-36.4)
[2023-03-18 21:31] VITALS: BP 125/71; PULSE 70; RESP 18; TEMP 36.7; O2SAT 98
--- NOTE | 2023-03-18 21:32 | MHC.EDTECH ---
Patient came in from waiting area, changed into hospital attire, Hourly rounds and vitals were completed. Patient ambulated to bathroom with a steady gait to give a urine specimen. This tech obtained UACC and sent to lab. Call mcnair within reach.
--- NOTE | 2023-03-18 21:42 | MHC.EDTECH ---
Second Type was collected and sent to lab.
[2023-03-18 21:55] LABS: Appearance Urine Clear; Color Urine Yellow; Glucose Urine UA Negative (Negative); Leukocyte Esterase Urine Negative (Negative); Nitrite Urine Negative (Negative); PH 5.5 (5.0-9.0); UMIC TRIGGER UACC YES; Urine Blood Small (1+) (Negative); Urine Ketones Trace mg/dL (Negative); Urine Protein Negative (Neg-Trace)
[2023-03-18 22:07] LABS: Bacteria Urine None Seen (None Seen); Hyaline Casts Urine 0-2 /LPF (0-2); RBC Urine 0-2 /HPF (0-2); Squamous Epithelial Cell Urine 0-2 /HPF (0-2); WBC Urine 0-5 /HPF (0-5)
--- NOTE | 2023-03-18 22:24 | MHC.EDTECH ---
Patient had a small amount of liquid bloody stool, was made aware and DANIEL Louis. This tech collected stool specimen and sent to lab.
[2023-03-18 22:31] LABS: OBS Int Ctl Valid YES; OBS1 POSITIVE (NEGATIVE)
[2023-03-18] MEDS: 0.9 % Sodium Chloride 1,000 ML 999 ML IVCONT (22:49)
[2023-03-18 23:24] VITALS: BP 127/70; PULSE 87; RESP 18; TEMP 36.6; O2SAT 98
--- NOTE | 2023-03-18 23:25 | MHC.EDTECH ---
Hourly rounds and vitals completed, patient is watching TV at this time,call mcnair within reach
[2023-03-18 23:32] LABS: CDiff Gene PCR NEGATIVE (Negative)
--- NOTE | 2023-03-18 23:45 | PC.NURSE ---
this rn placed 20g IV L AC. pt tolerated well. pt medicated according to mar. pt daughter at bedside
[2023-03-19] MEDS: iohexoL 350 MG/ML 100 ML INFUS..BTL 80 ML IV (00:32)
[2023-03-19 02:07] VITALS: BP 122/65; PULSE 72; RESP 18; TEMP 36.7; O2SAT 98
--- NOTE | 2023-03-19 02:07 | MHC.EDTECH ---
Hourly rounds and vitals completed, patient ambulated to bathroom with a steady gait. Call mcnair within reach
[2023-03-19] MEDS: levoFLOXacin 500 MG TABLET PO (03:20)
[2023-03-19] MEDS: metroNIDAZOLE 500 MG TABLET PO (03:20)
[2023-03-19 03:28] VITALS: BP 138/61; PULSE 66; RESP 14; TEMP 36.6; O2SAT 98
--- NOTE | 2023-03-19 03:30 | PC.NURSE ---
pt mediated according to mar.vss. iv removed at discharge. pt calm and cooperative. pt ambulatory at discharge. pt daughter at bedside. pt provided with discharge packet. pt verbalized understanding of discharge plan
[2023-03-19 09:45] LABS: Campylobacter Not Detected (Not Detect.); Plesiomonas shigelloides Not Detected (Not Detect.)
[2023-03-19 09:46] LABS: E. coli EAEC Not Detected (Not Detect.); E. coli EPEC Detected (Not Detect.); E. coli ETEC Not Detected (Not Detect.); E. coli STEC Not Detected (Not Detect.); Salmonella Not Detected (Not Detect.); Vibrio Not Detected (Not Detect.); Vibrio Cholerae Not Detected (Not Detect.); Yersinia enterocolitica Not Detected (Not Detect.)
[2023-03-19 09:47] LABS: Adenovirus F 40/41 Not Detected (Not Detect.); Astrovirus Not Detected (Not Detect.); Cryptosporidium Not Detected (Not Detect.); Cyclospora cayetanensis Not Detected (Not Detect.); Entamoeba histolytica Not Detected (Not Detect.); Giardia lamblia Not Detected (Not Detect.); Norovirus GI/GII Not Detected (Not Detect.); Rotavirus A Not Detected (Not Detect.); Sapovirus Not Detected (Not Detect.); Shigella sp./EIEC Not Detected (Not Detect.)
== END 2023-03-19 03:31 | disposition home or self-care (01) ==
PROVIDERS: Registered Nurse Emergency; Emergency Provider Emergency Medicine; PCP Internal Medicine
DX: K52.9 Noninfective gastroenteritis and colitis, unspecified (principal); R10.30 Lower abdominal pain, unspecified; R11.2 Nausea with vomiting, unspecified; Z79.899 Other long term (current) drug therapy; Z20.822 Contact with and (suspected) exposure to COVID-19; Z20.828 Contact with and (suspected) exposure to other viral communicable diseases
CPT/HCPCS: 36415; 74178; 80053; 81001; 82272; 83690; 83735; 85025; 85610; 85730; 86850; 86900; 86901; 87493; 87507; 93005; 96360; 96361; 99284; 99285; Q9967

== ENCOUNTER 2023-03-21 09:37 | Outpatient (AMB) | payer MEDICARE, SELFPAY ==
--- NOTE | 2023-03-21 09:53 | MHC.PC.OV ---
Vital Signs 03/21/23 10:12 Height 5 ft 3 in Weight 103 lb BMI 18.2 BP 112/58 L Blood Pressure Location Lt brachial Position Sitting Pulse 79 Pulse Source Pulse Oximeter Pulse Oximetry (%) 98 Oxygen Delivery Method Room Air [place] [facility] [place] Abdomen Pain Intake Note: Patient is here to follow-up after a [place] [facility] [place] for abdominal pain Wire Stripper Required: No Accompanied by: Self / Same As Patient Allergies morphine [MORPHINE] Allergy (Intermediate, Verified 03/21/23 10:17) HYPOTENSION, abdominal pains atorvastatin Allergy (Unknown, Verified 03/21/23 10:17) headaches,abdominal pains simvastatin Allergy (Unknown, Verified 03/21/23 10:17) myalgia trazodone Adverse Reaction (Unknown, Verified 03/21/23 10:17) headaches, weakness Tobacco use date assessed: 12/04/22 Fall risk assessment: No Falls in past year Last assessed Fall Risk: 03/21/23 Dental Screening Dental Screen Date: 03/21/23 Did you have a dental visit in the last 12 months?: No Did you have a dental problem in the last 6 months where you did not have access to dental care?: No Was dental information given to patient?: Yes HPI HPI Comments History of Present Illness Details 73-year-old female H significatn for anxiety, insomnia, GERD, constipation, hypercholestermia, osteoporosis and Vit D defficiency. Patient of Dr. Castillo for a ER follow up patient presented with diarrhea and blood in her stool x 4 episodes with abd cramping. ABD CT showed thickening of decending and sigmoid colon consistent with colitis.OB positive, GI panel positive Ecoli EPEC. Labs showed anemia H/H 11.7/35.5. Patient was treated with levofloxacin and metronidazol and D/c home. Patient reports that since she started on on antibiotics she hasnt had a BM, denies rectal bleeding. Patient reports that she has not been eating solid food though she has been having mostly water and brought. Patient encouraged to solid foods and follow-up brat diet intially. Patient advised to call office or follow-up if she develops any recurrence of diarrhea her blood in her stool. [facility] Medical History Anxiety Constipation Fever GERD (gastroesophageal reflux disease) Insomnia Osteoporosis Postherpetic neuralgia Primary osteoarthritis, left shoulder Pure hypercholesterolemia Varicose veins of leg with pain Vitamin D deficiency Surgical History History of colonoscopy History of excision of mass History of total hysterectomy Varicose vein of leg Family History Father Medical history unknown Mother Medical history unknown Son No problems noted. Daughter No problems noted. Social History Household Members: None Housing: Apartment Alcohol intake: never Patient Tobacco Use Status: Never used Tobacco e-Cigarette/Vaping Use: Never Used Second Hand Smoke Exposure: No service: No Current occupational status: disabled Cognitive needs: No Hearing needs: No Vision needs: No Questionnaire Thrive Questionnaire Date Thrive assessed: 12/04/22 JACOBO-7 AMB Questionnaire JACOBO-7 Date JACOBO - 7 assessed: 12/04/22 Source: Developed by Drs. Christiano Cuellar, Fabiola Tobin, Adalberto Patel and colleagues, with an educational raudel from [email or web address]. Review of Systems Const Denies chills, Denies fatigue, Denies fever(s) and Denies poor appetite Eyes Denies no additional complaints ENT Reports Normal hearing present Card Denies chest pain, Denies syncope, Denies rapid heart rate and Denies dyspnea Resp Denies cough and Denies dyspnea GI Denies change in stool character, Denies constipation, Denies diarrhea, Denies nausea and Denies vomiting Denies urinary frequency, Denies dysuria and Denies urinary urgency Neuro Reports Normal hearing present, Denies confusion and Denies syncope Psych Denies confusion Endo Denies fatigue Physical exam (Primary Care) Vital Signs: Last Vital Signs Pulse 79 03/21/23 10:12 BP 112/58 L 03/21/23 10:12 Pulse Ox 98 03/21/23 10:12 Oxygen Delivery Method Room Air 03/21/23 10:12 BMI result Body Mass Index 18.2 Tobacco/Smoking Status: Tobacco use Status Tobacco use date assessed 12/04/22 03/21/23 09:54 Patient Tobacco Use Status Never used Tobacco 03/21/23 09:54 e-Cigarette/Vaping Use Never Used 03/21/23 09:54 Thrive Assessment: Date of Thrive Assessment Date Thrive assessed 12/04/22 03/21/23 09:54 Const General: No confusion Orientation/consciousness: No confusion HENMT Head: Yes normocephalic and Yes atraumatic Eyes Conjunctivae: conjunctivae normal Chest Chest palpation & inspection: normal inspection of the chest Resp Effort & Inspection: normal respiratory effort Auscultation: clear to auscultation bilaterally, no crackles, no rhonchi and no wheezes Cardio Rate: regular rate Rhythm: regular rhythm Heart sounds: S1 normal heart sound present and S2 normal heart sound present GI Inspection: Yes normal to inspection Neuro General: No confusion Cranial nerves: Yes Normal hearing present Extrem General: No edema Assessment and Plan Assessment & Plan (1) Colitis: Code(s): K52.9 - Noninfective gastroenteritis and colitis, unspecified Plan: Continue on Levaquin and metronidazole until completion. Patient advised to follow up breath diet. Referral entered to gastroenterology. Please call office or follow-up you develop any recurrence of diarrhea or blood in stool. (2) Pure hypercholesterolemia: Comment: Has been unable to tolerate STATINS in the past Code(s): E78.00 - Pure hypercholesterolemia, unspecified Plan: Continue to follow low-cholesterol diet. (3) GERD (gastroesophageal reflux disease): Code(s): K21.9 - Gastro-esophageal reflux disease without esophagitis Qualifiers: Esophagitis presence: without esophagitis Qualified Code(s): K21.9 - Gastro-esophageal reflux disease without esophagitis Plan: Continue on omeprazole 20 mg daily. Plan Keep scheduled follow-up with PCP or follow-up sooner if needed. Orders: Referrals Gastroenterology Referral K52.9 - Noninfective gastroenteritis and colitis, unspecified Coding Level of Care Code Est Pt Level 3 (58706) Diagnoses Colitis K52.9 Pure hypercholesterolemia E78.00 GERD (gastroesophageal reflux disease) K21.9 Esophagitis presence: without esophagitis
[2023-03-21 10:12] VITALS: BP 112/58; PULSE 79; O2SAT 98; BMI 18.2
== END 2023-03-21 10:46 | disposition home or self-care (01) ==
PROVIDERS: PCP Internal Medicine; Visit Provider Nurse Practitioner Family
DX: K52.9 Noninfective gastroenteritis and colitis, unspecified (principal); E78.00 Pure hypercholesterolemia, unspecified; K21.9 Gastro-esophageal reflux disease without esophagitis
CPT/HCPCS: 99213

== ENCOUNTER 2023-04-07 08:51 | Outpatient (REF) | payer MEDICARE, SELFPAY ==
[2023-04-07 09:16] LABS: MANUAL DIFF FLAG NO
[2023-04-07 10:03] LABS: Basophils Percent Auto 0.9 % (0-2); Eosinophils Percent Auto 0.9 % (0-4); Hematocrit 35.6 % (37.0-47.0); Hemoglobin 11.4 g/dl (12.0-16.0); Imm Gran Abs Auto 0.01 X10*3/uL (0.00-0.03); Imm Gran Pct Auto 0.3 % (0.0-0.4); Lymphocytes Absolute Auto 1.5 X10*3/uL (1.2-4.9); Lymphocytes Percent Auto 41.7 % (20-40); Mean Corpuscular Hemoglobin 29.8 pg (27.0-33.0); Mean Platelet Volume 10.9 fL (9.4-12.3); Monocytes Absolute Auto 0.3 X10*3/uL (0.1-1.2); Neutrophils Absolute Auto 1.7 x10*3/uL (2.0-8.3); Neutrophils Percent Auto 48.2 % (45-73); Platelet Count 225 X10*3/uL (160-400); Red Blood Count 3.83 X10*6/uL (4.20-5.50); Red Cell Distribution Width 13.6 % (11.0-16.0); White Blood Count 3.5 X10*3/uL (4.8-10.8)
[2023-04-07 10:45] LABS: Alanine Aminotransferase 9 U/L (0-31); Albumin Level 4.3 g/dL (3.5-5.0); Alkaline Phosphatase 58 U/L (39-117); Anion Gap 12 (12-20); Aspartate Amino Transferase 23 U/L (5-31); Bilirubin Total 0.7 mg/dL (0.0-1.0); Blood Urea Nitrogen 11 mg/dL (9-16); Carbon Dioxide 28 mmol/L (22-29); Chloride 106 mmol/L (96-108); Cholesterol 246 mg/dL (<200); Estimated Glomerular Filt Rate > 60; Glucose Fasting 93 mg/dL (60-99); HDL Cholesterol 84 mg/dL (>40); LDL Cholesterol Calculated 142 mg/dL (<100); Potassium 4.5 mmol/L (3.3-5.1); Sodium 141 mmol/L (135-145); Total Protein 6.9 g/dL (6.5-8.0); Triglycerides 104 mg/dL (<150)
[2023-04-07 11:01] LABS: TSH reflex Free T4 1.46 uIU/mL (0.32-4.0); Vitamin D 25-OH Total 41.6 ng/mL (>30)
[2023-04-07 11:38] LABS: Appearance Urine Clear; Color Urine Yellow; Glucose Urine UA Negative (Negative); Leukocyte Esterase Urine Trace (Negative); Nitrite Urine Negative (Negative); PH 6.5 (5.0-9.0); Specific Gravity - Urine 1.015 (1.005-1.025); UMIC TRIGGER UACC YES; Urine Blood Negative (Negative); Urine Ketones Negative (Negative); Urine Protein Negative (Neg-Trace)
[2023-04-07 11:43] LABS: Bacteria Urine None Seen (None Seen); Hyaline Casts Urine 0-2 /LPF (0-2); Squamous Epithelial Cell Urine 0-2 /HPF (0-2); WBC Urine 0-5 /HPF (0-5)
== END 2023-04-07 08:52 | disposition home or self-care (01) ==
LOC: HO.LAB 08:51
PROVIDERS: PCP Internal Medicine; Visit Provider Internal Medicine
DX: E78.00 Pure hypercholesterolemia, unspecified (principal); E55.9 Vitamin D deficiency, unspecified; I10 Essential (primary) hypertension; R30.0 Dysuria
CPT/HCPCS: 36415; 80053; 80061; 81001; 81003; 82306; 84443; 85025

== ENCOUNTER 2023-04-11 09:15 | Outpatient (AMB) | payer MEDICARE, SELFPAY ==
[2023-04-11 09:18] VITALS: BP 130/68; PULSE 76; O2SAT 99; BMI 18.1
--- NOTE | 2023-04-11 09:18 | AM.OFFVISMDC ---
Intake Vital Signs 04/11/23 09:18 Height 5 ft 3 in Weight 102 lb BMI 18.1 BP 130/68 Blood Pressure Location Lt brachial Position Sitting Pulse 76 Pulse Source Pulse Oximeter Temp Source Skin Pulse Oximetry (%) 99 Oxygen Delivery Method Room Air Intake Visit Reasons: [facility] Intake Note: Patient is here for an Annual Wellness Visit. 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 Required: No Allergies morphine [MORPHINE] Allergy (Intermediate, Verified 04/11/23 09:54) HYPOTENSION, abdominal pains atorvastatin Allergy (Unknown, Verified 04/11/23 09:54) headaches,abdominal pains simvastatin Allergy (Unknown, Verified 04/11/23 09:54) myalgia trazodone Adverse Reaction (Unknown, Verified 04/11/23 09:54) headaches, weakness Medication List - Last Reconciled 04/11/23 by CECILIA Rodas alendronate 70 mg PO QWEEK 90 days calcium citrate 500 mg (2 x 250 mg calcium) PO DAILY 90 days cholecalciferol (vitamin D3) 125 mcg PO DAILY 90 days ibuprofen 400 mg PO Q6H PRN omega-3 fatty acids 1,000 mg PO DAILY NS omeprazole 20 mg PO DAILY 90 days polyethylene glycol 3350 (Miralax) 17 grams PO DAILY zolpidem 10 mg PO BEDTIME PRN 30 days HPI [facility] HPI Details Patient is a 73-year-old female who presents today for subsequent wellness visit. Patient of Dr. Azar. Today we discussed patient's need for tetanus vaccine, patient would like to hold off on this vaccine. Patient did have a negative Cologuard 09/2021. Bone density screen 04/2022 with osteoporosis-followed by Dr. Montenegro. Mammogram 08/2022. [place] of care was reviewed with the patient and she was provided with a screening schedule. Healthcare proxy is on file and patient was provided with a MOLST form. [facility] Medical History Fever Anxiety Insomnia Postherpetic neuralgia Varicose veins of leg with pain Primary osteoarthritis, left shoulder Constipation GERD (gastroesophageal reflux disease) Vitamin D deficiency Osteoporosis Pure hypercholesterolemia Surgical History History of colonoscopy Varicose vein of leg History of excision of mass History of total hysterectomy Family History Father Medical history unknown Mother Medical history unknown Son No problems noted. Daughter No problems noted. Social History Household Members: None Housing: Apartment Alcohol intake: never Patient Tobacco Use Status: Never used Tobacco e-Cigarette/Vaping Use: Never Used Second Hand Smoke Exposure: No service: No Current occupational status: disabled Cognitive needs: No Hearing needs: No Vision needs: No Questionnaire Medicare Wellness Checkup [age] What gender do you identify with?: female During the past 4 weeks, how much have you been bothered by emotional problems such as feeling anxious, depressed, irritable, sad or downhearted, and blue?: not at all During the past 4 weeks, has your physical & emotional health limited your social activities with family, friends, neighbors, or groups?: not at all During the past 4 weeks, how much bodily pain have you generally had?: no pain During the past 4 weeks, was someone available to help you if you needed & wanted help?: no, not at all During the past 4 weeks, what was the hardest physical activity you could do for at least 2 minutes?: moderate Can you get to places out of walking distance without help? (For eg., can you travel alone on buses, taxis or drive your car?): Yes Can you go shopping for groceries or clothes without someone's help?: Yes Can you prepare your own meals?: Yes Can you do your housework without help?: Yes Because of any health problems, do you need the help of another person with your personal care needs such as eating, bathing, dressing or getting around the house?: No Can you handle your own money without help?: Yes During the past 4 weeks, how would you rate your health in general?: good During the past 4 weeks how have things been going for you?: pretty well Are you having difficulties driving your car?: no Do you always fasten your seat belt when you are in a car?: yes, usually During past 4 weeks, have you been bothered by the following: never: Falling or dizzy when standing up, Sexual problems?, Trouble eating well?, Teeth or denture problems?, Problems using the telephone? and Tiredness or fatigue? Have you fallen 2 or more times in the past year?: No Are you afraid of falling?: No Are you a smoker?: no During the past 4 weeks, how many drinks of wine, beer, or other alcoholic beverages did you have?: no alcohol at all Do you exercise for about 20 minutes 3 or more times a week?: yes, some of the time Have you been given information to help with the following?: no: Hazards in your house that might hurt you? and no: Keeping track of your medications? How often do you have trouble taking medicines the way you have been told to take them?: I always take medicine as prescribed How confident are you that you can control & manage most of your health problems?: very confident What is your race?: or origin or descent Mini Mental State Exam (MMSE) Orientation What is the (year) (season) (date) (day) (month)?: year, season, date, day and month Score Score: 5 Activity of Daily Living Bathing - sponge bath, tub bath or shower: receives no assistance (gets in/out by self, if usual bathing means Dressing - getting clothes from closets & drawers, including inner/outer garments & fasteners.: gets clothes & gets completely dressed without help Toileting - going to the 'toilet room' for urine/bowel elimination & cleaning self/arranging clothes: goes to toilet room, cleans self, arranges clothes without help Transfer: moves in & out of bed and chair without help (may use support object) Continence: controls urination/bowel movements completely by self Feeding: feeds self without help Total Score: 0 Information obtained from: patient Using telephone: independent Traveling: independent Shopping: independent Preparing meals: independent Housework: independent Taking medicine: independent Managing money: independent PHQ-9 Over the last 2 weeks, how often have you been bothered by any of the following problems? 1. Little interest or pleasure in doing things: not at all 2. Feeling down, depressed, or hopeless: not at all 3. Trouble falling or staying asleep, or sleeping too much: not at all 4. Feeling tired or having little energy: more than half the days 5. Poor appetite or overeating: not at all 6. Feeling bad about yourself - or that you are a failure or have let yourself or your family down: not at all 7. Trouble concentrating on things, such as reading the newspaper or watching television: not at all 8. Moving or speaking so slowly that other people could have noticed. Or the opposite - being so fidgety or restless that you have been moving around a lot more than usual: not at all 9. Thoughts that you would be better off or of hurting yourself in some way: not at all Total score: 2 Depression Screening Interpretation: Negative [id number] - PHQ-9 Billing: Yes Source: Developed by Drs. Christiano Cuellar, Fabiola Tobin, Adalberto Patel and colleagues, with an educational raudel from [employer]. Physical Exam Vital Signs: Last Vital Signs Pulse 76 04/11/23 09:18 BP 130/68 04/11/23 09:18 Pulse Ox 99 04/11/23 09:18 Oxygen Delivery Method Room Air 04/11/23 09:18 BMI result Body Mass Index 18.1 Const General: cooperative and no acute distress Orientation/consciousness: patient oriented x3 HEENT Other: Whisper test: pass Neuro Other: Balance: Normal Get up and walk: able to Romberg: negative Tandem gait: able to General: patient oriented x3 Assessment & Plan Assessment & Plan (1) Adult general medical exam: Code(s): Z00.00 - Encounter for general adult medical examination without abnormal findings (2) Anxiety: Code(s): F41.9 - Anxiety disorder, unspecified Plan: Stable (3) Insomnia: Code(s): G47.00 - Insomnia, unspecified Qualifiers: Insomnia type: unspecified Qualified Code(s): G47.00 - Insomnia, unspecified Plan: Continue Ambien 10 mg at bedtime p.r.n. (4) Constipation: Code(s): K59.00 - Constipation, unspecified Qualifiers: Constipation type: unspecified constipation type Qualified Code(s): K59.00 - Constipation, unspecified Plan: Continue current treatment Increase fluid consumption and dietary fiber (5) GERD (gastroesophageal reflux disease): Code(s): K21.9 - Gastro-esophageal reflux disease without esophagitis Qualifiers: Esophagitis presence: without esophagitis Qualified Code(s): K21.9 - Gastro-esophageal reflux disease without esophagitis Plan: Omeprazole 20 mg daily Avoid GERD trigger foods Do not lay down 2-3 hours after evening meal (6) Vitamin D deficiency: Code(s): E55.9 - Vitamin D deficiency, unspecified Plan: Continue vitamin-D supplement as prescribed (7) Osteoporosis: Code(s): M81.0 - Age-related osteoporosis without current pathological fracture Qualifiers: Osteoporosis type: age-related Presence of current pathological fracture: without current pathological fracture Qualified Code(s): M81.0 - Age-related osteoporosis without current pathological fracture Plan: Continue to follow-up with endocrinology Dr. Montenegro (8) Pure hypercholesterolemia: Comment: Has been unable to tolerate STATINS in the past Code(s): E78.00 - Pure hypercholesterolemia, unspecified Plan: Continue [place]-3 Low cholesterol diet Quality Reporting (2019) Depression/Bipolar (159/160/161/177) PHQ-9: Total score: 2 Coding Level of Care Code Medicare Subsequent (G0439) Diagnoses Adult general medical exam Z00.00 Anxiety F41.9 Insomnia, unspecified type G47.00 Insomnia type: unspecified Constipation, unspecified constipation type K59.00 Constipation type: unspecified constipation type Gastroesophageal reflux disease without esophagitis K21.9 Esophagitis presence: without esophagitis Vitamin D deficiency E55.9 Age-related osteoporosis without current pathological fracture M81.0 Osteoporosis type: age-related Presence of current pathological fracture: without current pathological fracture Pure hypercholesterolemia E78.00 CPT Codes Advance Care Planning - Advance Care Planning discussion: On file, no changes ([id number]) Advance Care Planning - Time spent: 1-15 minutes, on File ([id number]) Advance Care Planning Advance Care Planning discussion: On file, no changes Date of discussion: 04/11/23 Who was present: pt and environmental laboratory technician Forms completed: None Time spent: 1-15 minutes, on File Actual minutes spent: 2 Did not discuss due to Cultural/Spiritual beliefs: No
== END 2023-04-11 10:07 | disposition home or self-care (01) ==
PROVIDERS: Visit Provider Nurse Practitioner Family
DX: Z00.00 Encounter for general adult medical examination without abnormal findings (principal); F41.9 Anxiety disorder, unspecified; K21.9 Gastro-esophageal reflux disease without esophagitis; E55.9 Vitamin D deficiency, unspecified; G47.00 Insomnia, unspecified; K59.00 Constipation, unspecified; M81.0 Age-related osteoporosis without current pathological fracture; E78.00 Pure hypercholesterolemia, unspecified
CPT/HCPCS: 1123F; G0439

== ENCOUNTER 2023-07-08 12:00 | Outpatient (REF) | payer MEDICARE, SELFPAY ==
[2023-07-08 15:11] LABS: C Reactive Protein < 0.10 mg/dL (< or = 0.50)
== END 2023-07-08 12:01 | disposition home or self-care (01) ==
LOC: HO.LAB 12:00
PROVIDERS: PCP Internal Medicine; Visit Provider Nurse Practitioner Family
DX: K52.9 Noninfective gastroenteritis and colitis, unspecified (principal); K59.00 Constipation, unspecified; K21.9 Gastro-esophageal reflux disease without esophagitis
CPT/HCPCS: 36415; 86140; 99202

== ENCOUNTER 2023-07-08 12:00 | Outpatient (AMB) | payer MEDICARE, SELFPAY ==
--- NOTE | 2023-07-08 13:08 | A.OFFVIS_ITS ---
Intake Vital Signs 07/08/23 13:14 Height 5 ft 3 in Weight 103 lb 9.876 oz BMI 18.4 BP 143/65 H Blood Pressure Location Lt brachial Position Sitting Pulse 75 Intake Visit Reasons: gastroenteritis and colitis Intake Note: Gracie presents in the office for gastroeneteritis and colitis. CC: She states that she is not really having any concerns at this time. She states constipation at times but she has been feeling good lately. 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 Allergies morphine [MORPHINE] Allergy (Intermediate, Verified 07/08/23 13:16) HYPOTENSION, abdominal pains atorvastatin Allergy (Unknown, Verified 07/08/23 13:16) headaches,abdominal pains simvastatin Allergy (Unknown, Verified 07/08/23 13:16) myalgia trazodone Adverse Reaction (Unknown, Verified 07/08/23 13:16) headaches, weakness HPI gastroenteritis and colitis HPI Details ED VISIT 03/18/2023 Medical Decision Making MDM Narrative: - my interpretation of labs: White bloo d cell count within normal limits, chemistry no abnormalities, occult blood positive - CT scan of the abdomen pelvis my inter pretation: No SBO, no obvious source of GI bleed - -I discussed the CT report with the rebecca ent, patient likely has colitis. Patient states the abdominal pain is minimal, the rectal bleeding is scant still present. -I discussed with the patient that admis juan m is recommended, ideally we should admit her, patient states that she feels well enough to go home, if anything changes she will return to the emergency room. -patient's white blood cell count normal , vitals stable -patient with a 1st dose of levofloxacin and metronidazole in the ED TODAY'S VISIT 73-year-old female with past medical his tory of cluster hernia, osteoporosis, vitamin-D deficiency, GERD, constipation osteoarthritis, and anxiety, insomnia is here today for initial consultation. Patient was seen in the evening back in February for abdominal pain and diarrhea. Patient had several hours of diarrhea with rectal bleeding. Patient denied fever or chills. Essentially was diagnosed with colitis and sent home with antibiotics. Patient denies having any episodes since. Denies any rectal bleeding. Denies any abdominal pain or discomfort. Patient has a it to have constipation. Reports that she has been dealing with that for long time. Patient states that she is not taking any medications to help her move her bowels. Patient reports that she is drinking fluids. Not sure if she eats enough of fiber daily. Patient denies any melena, hematochezia, unintentional weight loss or ribbon like stools. Patient reports that her acid reflux is controlled with omeprazole. Patient denies any dyspepsia, dysphagia or odynophagia. Denies any other GI concerning symptoms PFSH Medical History Fever Anxiety Insomnia Postherpetic neuralgia Varicose veins of leg with pain Primary osteoarthritis, left shoulder Constipation GERD (gastroesophageal reflux disease) Vitamin D deficiency Osteoporosis Pure hypercholesterolemia Surgical History History of colonoscopy Varicose vein of leg History of excision of mass History of total hysterectomy Family History Father Medical history unknown Mother Medical history unknown Son No problems noted. Daughter No problems noted. Social History Household Members: None Housing: Apartment Alcohol intake: never Patient Tobacco Use Status: Never used Tobacco e-Cigarette/Vaping Use: Never Used Second Hand Smoke Exposure: No service: No Current occupational status: disabled Cognitive needs: No Hearing needs: No Vision needs: No Review of Systems Const Denies weight gain and Denies weight loss ENT Reports no additional complaints, Denies dysphagia and Denies odynophagia Card Reports no additional complaints Resp Reports no additional complaints GI Denies abdominal pain, Denies belching, Denies melena, Denies bloating, Reports constipation, Denies dysphagia, Denies excessive flatus, Denies dyspepsia, Denies heartburn, Denies diarrhea, Denies loose stools, Denies nausea, Denies odynophagia and Denies vomiting Reports no additional complaints Musc Reports no additional complaints Neuro Reports no additional complaints Psych Reports no additional complaints Endo Reports no additional complaints Physical Exam Vital Signs: Last Vital Signs Pulse 75 07/08/23 13:14 BP 143/65 H 07/08/23 13:14 BMI result Body Mass Index 18.4 Const General: healthy appearing, no acute distress and well developed Nutritional Appearance: well nourished Orientation/consciousness: patient oriented x3 HEENT Head: Yes normal to inspection, Yes normocephalic and Yes atraumatic Face and sinus: Yes normal facial exam Mouth: Normal oral and palatal mucosa present Throat: Yes posterior oropharynx normal, Yes tonsils normal and Yes uvula m idline Eyes General: appearance normal, both eyes and all related structures Neck Neck: Yes normal visual inspection, Yes full ROM and Yes trachea midline Thyroid: Thyroid normal Resp Effort & Inspection: normal respiratory effort, able to speak in complete sentences, no tracheal deviation and symmetric chest movement Auscultation: clear to auscultation bilaterally Cardio Rate: regular rate GI Inspection: Yes normal to inspection and No distended Palpation (GI): Soft to palpation, not firm, nontender and No hepatosplenomegaly present Auscultation: normal bowel sounds General: Yes no CVA tenderness Back/Spine/Pelvis Back: no CVA tenderness Skin General skin exam: elasticity normal, turgor normal and dry skin Neuro General: patient oriented x3 Psych Appearance: grossly normal Mental Status: mental status grossly normal Results Reviewed Results Reviewed: CT SCAN OF ABDOMINAL AND PELVIS 03/18/2023 FINDINGS: QUALITY OF STUDY/CONTRAST BOLUS: Satisfactory. LUNG BASES: Unremarkable. LIVER, GALLBLADDER, AND BILIARY TREE: The liver is normal in size, shape, and attenuation. No biliary ductal dilatation is present. Gallbladder is normal in appearance. PANCREAS: Unremarkable.? SPLEEN: Splenic calcifications are noted.? ADRENAL GLANDS: Unremarkable.? KIDNEYS AND URETERS: The kidneys are normal in size and position. No renal calculi are seen. No hydronephrosis or hydroureter. BLADDER: Unremarkable.? GASTROINTESTINAL TRACT: There is thickening of the descending and sigmoid colon. There is no contrast extravasation to suggest active GI bleeding. The appendix is visualized and is within normal limits. PERITONEUM: Unremarkable. ABDOMINAL WALL: Unremarkable.? LYMPH NODES: None. VASCULAR: Unremarkable. PELVIC VISCERA: Unremarkable. There is minimal free fluid within the pelvis. OSSEOUS STRUCTURES: Unremarkable.? CT/CT gi bleed abd pel wo/w IVcon IMPRESSION: ? 1. Thickening of the descending and sigmoid colon consistent with a colitis of uncertain etiology. ? 2. No evidence for active GI bleeding. ? Assessment & Plan Assessment & Plan (1) Colitis: Code(s): K52.9 - Noninfective gastroenteritis and colitis, unspecified (2) Constipation: Code(s): K59.00 - Constipation, unspecified Qualifiers: Constipation type: unspecified constipation type Qualified Code(s): K59.00 - Constipation, unspecified (3) GERD (gastroesophageal reflux disease): Code(s): K21.9 - Gastro-esophageal reflux disease without esophagitis Qualifiers: Esophagitis presence: without esophagitis Qualified Code(s): K21.9 - Gastro-esophageal reflux disease without esophagitis Plan Patient was encouraged to increase fluid intake and activity to promote better bowel motility. Increase fiber in her diet. May try probiotic. Continue taking MiraLax on a daily basis. Will orders CRP if increased will order help protect him. Patient reports that she has no diarrhea, no abdominal pain or discomfort. Denies melena, hematochezia, unintentional weight loss or ribbon like stools. I will see patient in 3 weeks, sooner on as needed basis. Patient is agreeable to this plan and verbalizes understanding of instructions. She was given the opportunity to ask questions all questions answered. Thank you for allowing to participate in her care Orders: Orders C Reactive Protein 07/08/23 K58.9 - Irritable bowel syndrome without diarrhea Coding Level of Care Code New Pt Level 4 (46262) Diagnoses Colitis K52.9 Constipation, unspecified constipation type K59.00 Constipation type: unspecified constipation type Gastroesophageal reflux disease without esophagitis K21.9 Esophagitis presence: without esophagitis Time Spent (min) 45 Comment 30 minutes spent with patient and additional 10 minutes spent reviewing her records
[2023-07-08 13:14] VITALS: BP 143/65; PULSE 75; BMI 18.4
== END 2023-07-08 13:30 | disposition home or self-care (01) ==
PROVIDERS: PCP Internal Medicine; Visit Provider Nurse Practitioner Family
DX: K52.9 Noninfective gastroenteritis and colitis, unspecified (principal); K59.00 Constipation, unspecified; K21.9 Gastro-esophageal reflux disease without esophagitis
CPT/HCPCS: 99204

== ENCOUNTER 2023-07-28 08:14 | Outpatient (REF) | payer MEDICARE, SELFPAY | END 2023-07-28 08:15 | disposition home or self-care (01) | LOC: HO.LAB 08:14 | PROVIDERS: PCP Internal Medicine; Visit Provider Internal Medicine | DX: R30.0 Dysuria (principal) | CPT/HCPCS: 81001 ==

== ENCOUNTER 2023-07-30 08:13 | Outpatient (AMB) | payer MEDICARE, SELFPAY ==
--- NOTE | 2023-07-30 08:21 | MHC.OFFVIS ---
Intake Vital Signs 07/30/23 08:22 Height 5 ft 3 in Weight 101 lb 6.602 oz BMI 18.0 BP 131/60 Blood Pressure Location Lt brachial Position Sitting Pulse 92 Intake Visit Reasons: 3 week follow up Intake Note: Gracie presents in the office as a 3 week follow up. CC: She states that she is not having any concerns at this time. 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 Increase fiber in her diet. May try probiotic. Continue taking MiraLax on a daily basis. Will orders CRP if increased will order help protect him. Patient reports that she has no diarrhea, no abdominal pain or discomfort. Denies melena, hematochezia, unintentional weight loss or ribbon like stools. I will see patient in 3 weeks, sooner on as needed basis. Patient is agreeable to this plan and verbalizes understanding of instructions. She was given the opportunity to ask questions all questions answered. ? Thank you for allowing to participate in her care Orders Orders C Reactive Protein 07/08/23 K58.9 TODAY'S VISIT: Patient is here today for follow-up. Patient reports that she has been feeling fairly well. Patient denies any diarrhea or abdominal pain. Patient denies any melena, hematochezia, unintentional weight loss or ribbon like stools. She is taking MiraLax daily and in moving her bowels without any issues. C reactive protein normal. Patient had Cologuard last year and it was negative. However back in February of last year patient had colitis most likely related to E coli bacteria. C diff was negative. Patient will go for diagnostic colonoscopy. Patient denies any issues with anesthesia in the past. No history of sleep apnea. Not on any anticoagulation medication. Patient denies any cardiac or respiratory symptoms. [facility] Medical History Fever Anxiety Insomnia Postherpetic neuralgia Varicose veins of leg with pain Primary osteoarthritis, left shoulder Constipation GERD (gastroesophageal reflux disease) Vitamin D deficiency Osteoporosis Pure hypercholesterolemia Surgical History History of colonoscopy Varicose vein of leg History of excision of mass History of total hysterectomy Family History Father Medical history unknown Mother Medical history unknown Son No problems noted. Daughter No problems noted. Social History Household Members: None Housing: Apartment Alcohol intake: never Patient Tobacco Use Status: Never used Tobacco e-Cigarette/Vaping Use: Never Used Second Hand Smoke Exposure: No service: No Current occupational status: disabled Cognitive needs: No Hearing needs: No Vision needs: No Review of Systems Const Denies weight gain and Denies weight loss ENT Reports no additional complaints, Denies dysphagia and Denies odynophagia Card Reports no additional complaints Resp Reports no additional complaints GI Denies abdominal pain, Denies belching, Denies melena, Denies bloating, Denies change in bowel habits, Denies dysphagia, Denies excessive flatus, Denies dyspepsia, Denies heartburn, Denies diarrhea, Denies loose stools, Denies nausea, Denies odynophagia and Denies vomiting Musc Reports no additional complaints Neuro Reports no additional complaints Psych Reports no additional complaints Endo Reports no additional complaints Physical Exam Vital Signs: Last Vital Signs Pulse 92 07/30/23 08:22 BP 131/60 07/30/23 08:22 BMI result Body Mass Index 18.0 Const General: healthy appearing, no acute distress and well developed Nutritional Appearance: well nourished Orientation/consciousness: patient oriented x3 Resp Effort & Inspection: normal respiratory effort, able to speak in complete sentences, no tracheal deviation and symmetric chest movement Auscultation: clear to auscultation bilaterally Cardio Rate: regular rate GI Inspection: Yes normal to inspection and No distended Palpation (GI): Soft to palpation, not firm, nontender and No hepatosplenomegaly present Auscultation: normal bowel sounds General: Yes no CVA tenderness Back/Spine/Pelvis Back: no CVA tenderness Skin General skin exam: elasticity normal, turgor normal and dry skin Neuro General: patient oriented x3 Psych Appearance: grossly normal Mental Status: mental status grossly normal Results Reviewed Results Reviewed: Laboratory Tests 07/08/23 13:50 C-Reactive Protein < 0.10 Assessment & Plan Assessment & Plan (1) Colitis: Code(s): K52.9 - Noninfective gastroenteritis and colitis, unspecified (2) GERD (gastroesophageal reflux disease): Code(s): K21.9 - Gastro-esophageal reflux disease without esophagitis Qualifiers: Esophagitis presence: without esophagitis Qualified Code(s): K21.9 - Gastro-esophageal reflux disease without esophagitis (3) Constipation: Code(s): K59.00 - Constipation, unspecified Qualifiers: Constipation type: unspecified constipation type Qualified Code(s): K59.00 - Constipation, unspecified Plan Will schedule patient for diagnostic colonoscopy. History of colitis, positive Hemoccult. Patient had normal CRP. Most likely colitis related to E coli bacteria. Patient reports that she is moving her bowels well now. Denies any melena, hematochezia, unintentional weight loss or ribbon like stools. Patient denies any dyspepsia, dysphagia or odynophagia. Patient denies any issues with anesthesia in the past. No history of sleep apnea. Not on any anticoagulation medication. Denies any respiratory or cardiac symptoms. What to expect before during and after procedure discussed with patient. Clear liquid diet and good bowel prep day before procedure discussed cessation. I will see her after the procedure, sooner on as needed basis. Patient is agreeable to this plan and verbalizes understanding of instructions. She was given the opportunity to ask questions all questions answered. Thank you for allowing me to participate in her care Medications: New bisacodyl (Dulcolax (bisacodyl)) take 4 tabs at noon the day before your colonoscopy 20 mg (4 x 5 mg) PO ONCE 1 day 4 tabs 0RF Z12.11 - Encounter for screening for malignant neoplasm of colon polyethylene glycol 3350 (Miralax) As directed by gastroenterology department at [facility] 238 grams PO ONCE 238 grams 0RF Z12.11 - Encounter for screening for malignant neoplasm of colon Coding Level of Care Code Est Pt Level 3 (96157) Diagnoses Colitis K52.9 Gastroesophageal reflux disease without esophagitis K21.9 Esophagitis presence: without esophagitis Constipation, unspecified constipation type K59.00 Constipation type: unspecified constipation type Time Spent (min) 30 Comment 20 minutes spent with patient and additional 10 minutes spent reviewing her records
[2023-07-30 08:22] VITALS: BP 131/60; PULSE 92; BMI 18.0
== END 2023-07-30 09:34 | disposition home or self-care (01) ==
PROVIDERS: PCP Internal Medicine; Visit Provider Nurse Practitioner Family
DX: K52.9 Noninfective gastroenteritis and colitis, unspecified (principal); K21.9 Gastro-esophageal reflux disease without esophagitis; K59.00 Constipation, unspecified
CPT/HCPCS: 99213

== ENCOUNTER → 2023-07-30 08:13 | Outpatient (BNVA) | payer MEDICARE, SELFPAY | PROVIDERS: PCP Internal Medicine; Visit Provider Nurse Practitioner Family | DX: K52.9 Noninfective gastroenteritis and colitis, unspecified (principal); K21.9 Gastro-esophageal reflux disease without esophagitis; K59.00 Constipation, unspecified | CPT/HCPCS: 99212 ==

== ENCOUNTER 2023-07-30 09:44 | Outpatient (AMB) | payer MEDICARE, SELFPAY ==
[2023-07-30 10:02] VITALS: BP 112/78; PULSE 90; O2SAT 96; BMI 18.1
--- NOTE | 2023-07-30 10:02 | MHC.PC.OV ---
Vital Signs 07/30/23 10:02 Height 5 ft 3 in Weight 102 lb 4 oz BMI 18.1 BP 112/78 Blood Pressure Location Lt brachial Position Sitting Pulse 90 Pulse Source Pulse Oximeter Pulse Oximetry (%) 96 Oxygen Delivery Method Room Air Intake Visit Reasons: 3 Months F/U-HLD Director Of Managed Care Required: No Accompanied by: Self / Same As Patient Allergies morphine [MORPHINE] Allergy (Intermediate, Verified 07/30/23 10:58) HYPOTENSION, abdominal pains atorvastatin Allergy (Unknown, Verified 07/30/23 10:58) headaches,abdominal pains simvastatin Allergy (Unknown, Verified 07/30/23 10:58) myalgia trazodone Adverse Reaction (Unknown, Verified 07/30/23 10:58) headaches, weakness Medication List - Last Reconciled 07/30/23 by Seferino Azar MD alendronate 70 mg PO QWEEK 90 days bisacodyl (Dulcolax (bisacodyl)) 20 mg (4 x 5 mg) PO ONCE 1 day calcium citrate 500 mg (2 x 250 mg calcium) PO DAILY 90 days cholecalciferol (vitamin D3) 125 mcg PO DAILY 90 days ibuprofen 400 mg PO Q6H PRN omega-3 fatty acids 1,000 mg PO DAILY NS omeprazole 20 mg PO DAILY 90 days polyethylene glycol 3350 (Miralax) 17 grams PO DAILY polyethylene glycol 3350 (Miralax) 238 grams PO ONCE zolpidem 10 mg PO BEDTIME PRN 30 days Tobacco use date assessed: 07/30/23 Fall risk assessment: No Falls in past year Last assessed Fall Risk: 07/30/23 Dental Screening Dental Screen Date: 07/30/23 Did you have a dental visit in the last 12 months?: No Did you have a dental problem in the last 6 months where you did not have access to dental care?: No Was dental information given to patient?: No HPI 3 Months F/U-HLD HPI Details Patient comes in today for her follow up visit States that she feels okay Was just informed a few days ago that she is now scheduled for her repeat colonoscopy with GI on 11/17/2023 She denies any headaches or dizziness Denies any chest pains, no SOB No nausea/vomiting, no abdominal pain No change in bowel habits noted Needs her Calcium citrate Rx refilled States that she went to the lab a couple of days ago to get her tests done for this visit but was told that they were only able to locate a urinalysis order, which she did get done [facility] Medical History Fever Anxiety Insomnia Postherpetic neuralgia Varicose veins of leg with pain Primary osteoarthritis, left shoulder Constipation GERD (gastroesophageal reflux disease) Vitamin D deficiency Osteoporosis Pure hypercholesterolemia Surgical History History of colonoscopy Varicose vein of leg History of excision of mass History of total hysterectomy Family History Father Medical history unknown Mother Medical history unknown Son No problems noted. Daughter No problems noted. Social History Household Members: None Housing: Apartment Alcohol intake: never Patient Tobacco Use Status: Never used Tobacco e-Cigarette/Vaping Use: Never Used Second Hand Smoke Exposure: No service: No Current occupational status: disabled Cognitive needs: No Hearing needs: No Vision needs: No Questionnaire PHQ-9 Over the last 2 weeks, how often have you been bothered by any of the following problems? 1. Little interest or pleasure in doing things: not at all 2. Feeling down, depressed, or hopeless: not at all 3. Trouble falling or staying asleep, or sleeping too much: not at all 4. Feeling tired or having little energy: more than half the days 5. Poor appetite or overeating: not at all 6. Feeling bad about yourself - or that you are a failure or have let yourself or your family down: not at all 7. Trouble concentrating on things, such as reading the newspaper or watching television: not at all 8. Moving or speaking so slowly that other people could have noticed. Or the opposite - being so fidgety or restless that you have been moving around a lot more than usual: not at all 9. Thoughts that you would be better off or of hurting yourself in some way: not at all Total score: 2 Depression Screening Interpretation: Negative Depression Screening Done: Yes 99092 - PHQ-9 Billing: Yes Source: Developed by Drs. Christiano Cuellar, Fabiola Tobin, Adalberto Patel and colleagues, with an educational raudel from [employer]. Thrive Questionnaire Date Thrive assessed: 07/30/23 I am a: Patient What is your living situation today?: I choose not to answer this question Within the past 12 months, did the food you bought not last and you didn't have the money to get more?: Never true Within the past 12 months, did you worry whether your food would run out before you got money to buy more?: Never true Do you have trouble paying for medicines?: No Do you have trouble getting transportation to medical appointments?: No Do you have trouble paying your heating and electricity bill?: No Do you have trouble taking care of your child, family member or friend?: No Do you have trouble with day-to-day activities such as bathing, preparing meals, shopping, managing finances, etc.?: No Are you currently unemployed and looking for a job?: No Are you interested in more education?: No Please select the resources that you would like help with: None Currently or been in a relationship where the following occur: no concerns reported AUDIT C Alcohol Use Questionnaire (AUDIT-C) 1. How often do you have a drink containing alcohol?: Never 3. How often do you have six or more drinks on one occasion?: Never Total Score: 0 Score Reviewed/Action Taken: Yes JACOBO-7 AMB Questionnaire JACOBO-7 Date JACOBO - 7 assessed: 07/30/23 Feeling nervous, anxious, or on edge: 0 = Not at all Not being able to stop or control worryin = Not at all Worrying too much about different things: 0 = Not at all Trouble relaxin = Not at all Being so restless that it is hard to sit still: 0 = Not at all Becoming easily annoyed or irritable: 0 = Not at all Feeling afraid as if something awful might happen: 0 = Not at all Total JACOBO-7 score (0-4 normal; 5-9 mild; 10-14 moderate; 15-21 severe): 0 Source: Developed by Drs. Christiano Cuellar, Fabiola Tobin, Adalberto Patel and colleagues, with an educational raudel from [employer]. Review of Systems Const Reports difficulty sleeping (Rx helps), Denies fatigue, Denies fever(s) and Denies headache(s) ENT Denies dysphagia, Denies dizziness, Denies otalgia, Denies headache(s), Denies odynophagia and Denies sore throat Card Denies chest pain, Denies palpitations and Denies dyspnea Resp Denies cough and Denies dyspnea GI Denies abdominal pain, Denies constipation, Denies dysphagia, Denies heartburn, Denies diarrhea, Denies nausea, Denies odynophagia and Denies vomiting Denies difficulty voiding, Denies nocturia and Denies dysuria Musc Reports arthralgias (on and off) Neuro Denies dizziness and Denies headache(s) Endo Denies fatigue and Denies palpitations Physical exam (Primary Care) Vital Signs: Last Vital Signs Pulse 90 07/30/23 10:02 BP 112/78 07/30/23 10:02 Pulse Ox 96 07/30/23 10:02 Oxygen Delivery Method Room Air 07/30/23 10:02 BMI result Body Mass Index 18.1 Tobacco/Smoking Status: Tobacco use Status Tobacco use date assessed 07/30/23 07/30/23 10:08 Patient Tobacco Use Status Never used Tobacco 07/30/23 10:08 e-Cigarette/Vaping Use Never Used 07/30/23 10:08 PHQ-9: PHQ-9 Score PHQ-9: Total score 2 07/30/23 10:08 Depression Screening Interpretation: Negative Thrive Assessment: Date of Thrive Assessment Date Thrive assessed 07/30/23 07/30/23 10:08 Currently or been in a relationship where the following occur: no concerns reported Const General: no acute distress and alert HENMT Ears: TM's normal bilaterally and EAC's normal Throat: Yes posterior oropharynx normal and Yes tonsils normal (no TP congestion noted) Neck Neck: Yes no lymphadenopathy and Yes supple Resp Auscultation: clear to auscultation bilaterally, no rales and no wheezes Cardio Rate: regular rate Rhythm: regular rhythm Heart sounds: no murmurs GI Palpation (GI): Soft to palpation and nontender Auscultation: normal bowel sounds General: Yes no CVA tenderness Back/Spine/Pelvis Back: no CVA tenderness Skin Rashes: no rashes Extrem General: Yes no clubbing, cyanosis or edema Results Reviewed Results Reviewed: Laboratory Tests 07/28/23 08:20 Urine Color Yellow Urine pH 5.5 Ur Specific [place] 1.015 Urine Protein Negative Urine Glucose (UA) Negative Urine Blood Trace H Urine Nitrite Negative Ur Leukocyte Esterase Negative Assessment and Plan Assessment & Plan (1) Pure hypercholesterolemia: Comment: Has been unable to tolerate STATINS in the past Code(s): E78.00 - Pure hypercholesterolemia, unspecified Plan: Patient did not get her follow up labs done as she was told that there were no orders in her chart when she went to the lab a couple of days ago - she was seen by CORE ANALYSIS OPERATOR a few months ago and apparently no follow up labs were ordered for this appt Advised that her cholesterol levels from a few months ago were still elevated but her LDL and HDL cholesterol numbers have improved slightly from previous Reinforced low cholesterol diet She has not been able to tolerate any statins in the past so we will continue to hold off on prescribing any cholesterol-lowering Rx States that she continues to take OTC [place]-3 capsules daily Will recheck labs and fasting lipids in 4 months for follow up (2) Osteoporosis: Code(s): M81.0 - Age-related osteoporosis without current pathological fracture Qualifiers: Osteoporosis type: age-related Presence of current pathological fracture: without current pathological fracture Qualified Code(s): M81.0 - Age-related osteoporosis without current pathological fracture Plan: Repeat BMD last done on 05/15/2022 revealed (+) significant osteoporosis, with no significant change from previous BMD in 2019 Continue Alendronate 70 mg once a week; patient has declined injectable antiresorptive therapy, which was recommended as first-line Tx for her previously Reminded to continue taking her oral Calcium and Vitamin D supplements daily Follow up with endocrinology (Dr. Montenegro) as scheduled - has appt scheduled for 08/27/23 and patient is reminded about this appt (3) Vitamin D deficiency: Code(s): E55.9 - Vitamin D deficiency, unspecified Plan: Continue Vitamin D3 5000 units QD (4) GERD (gastroesophageal reflux disease): Code(s): K21.9 - Gastro-esophageal reflux disease without esophagitis Qualifiers: Esophagitis presence: without esophagitis Qualified Code(s): K21.9 - Gastro-esophageal reflux disease without esophagitis Plan: Dietary restrictions reinforced Continue Omeprazole 20 mg QD PRN (5) Constipation: Code(s): K59.00 - Constipation, unspecified Qualifiers: Constipation type: unspecified constipation type Qualified Code(s): K59.00 - Constipation, unspecified Plan: Had a bout of severe constipation last year and she ended up with some rectal bleeding, which has since resolved and her symptoms have NOT recurred since Encouraged again to continue increased oral fluids and dietary fiber Continue Miralax 17 gm QD Patient had a normal colonoscopy with Dr. Shi back in 2013 and is due for repeat in 10 years (2023) but because of her recent rectal bleeding, was recommended to at least get a Cologuard done last year (2021), which came back negative She is now scheduled for her repeat colonoscopy with GI on 11/17/2023 (6) Primary osteoarthritis, left shoulder: Code(s): M19.012 - Primary osteoarthritis, left shoulder Plan: X-rays of the left shoulder done a couple of years ago showed (+) mild OA changes in the AC joint Patient is reminded to continue with regular shoulder exercises to help manage pain more effectively -? patient states that shoulder has not been bothering her as much lately To consider physical therapy and/ or orthopedics referral if symptoms increase or worsen (7) Varicose veins of leg with pain: Code(s): I83.819 - Varicose veins of unspecified lower extremity with pain Qualifiers: Laterality: unspecified laterality Qualified Code(s): I83.819 - Varicose veins of unspecified lower extremity with pain Plan: Follow up with vascular surgery (Dr. Glenn Anderson) as scheduled or as needed (8) Insomnia: Code(s): G47.00 - Insomnia, unspecified Qualifiers: Insomnia type: unspecified Qualified Code(s): G47.00 - Insomnia, unspecified Plan: Sleep hygiene reinforced Continue Zolpidem 10 mg once a day at bedtime as needed (9) Anxiety: Code(s): F41.9 - Anxiety disorder, unspecified Plan: Continue Hydroxyzine 25 mg 3 times a day as needed Plan Follow up in 4 months Orders: Orders TSH reflex Free T4 4 Months E78.00 - Pure hypercholesterolemia, unspecified UA CC w/rflx Micro + Cult 4 Months R30.0 - Dysuria Vitamin D 25-OH Total 4 Months E55.9 - Vitamin D deficiency, unspecified Complete Blood Count Auto Diff 4 Months I10 - Essential (primary) hypertension Comprehensive [place]. Panel Fast 4 Months E78.00 - Pure hypercholesterolemia, unspecified Lipid Panel 4 Months E78.00 - Pure hypercholesterolemia, unspecified Medications: Refilled calcium citrate 500 mg (2 x 250 mg calcium) PO DAILY 90 days 180 tabs 1RF M81.0 - Age-related osteoporosis without current pathological fracture, Z86.39 - Personal history of other endocrine, nutritional and metabolic disease Coding Level of Care Code Est Pt Level 4 (86843) Diagnoses Pure hypercholesterolemia E78.00 Age-related osteoporosis without current pathological fracture M81.0 Osteoporosis type: age-related Presence of current pathological fracture: without current pathological fracture Vitamin D deficiency E55.9 Gastroesophageal reflux disease without esophagitis K21.9 Esophagitis presence: without esophagitis Constipation, unspecified constipation type K59.00 Constipation type: unspecified constipation type Primary osteoarthritis, left shoulder M19.012 Varicose veins of lower extremity with pain, unspecified laterality I83.819 Laterality: unspecified laterality Insomnia, unspecified type G47.00 Insomnia type: unspecified Anxiety F41.9
== END 2023-07-30 11:06 | disposition home or self-care (01) ==
PROVIDERS: PCP Internal Medicine; Visit Provider Internal Medicine
DX: E78.00 Pure hypercholesterolemia, unspecified (principal); M81.0 Age-related osteoporosis without current pathological fracture; E55.9 Vitamin D deficiency, unspecified; K21.9 Gastro-esophageal reflux disease without esophagitis; K59.00 Constipation, unspecified; M19.012 Primary osteoarthritis, left shoulder; I83.819 Varicose veins of unspecified lower extremity with pain; G47.00 Insomnia, unspecified; F41.9 Anxiety disorder, unspecified
CPT/HCPCS: 99214

== ENCOUNTER 2023-09-17 09:20 | Outpatient (REF) | payer MEDICARE, SELFPAY | END 2023-09-17 09:21 | disposition home or self-care (01) | LOC: HO.MAMMO 09:20 | PROVIDERS: PCP Internal Medicine; Visit Provider Internal Medicine | DX: Z12.31 Encounter for screening mammogram for malignant neoplasm of breast (principal) | CPT/HCPCS: 77063; 77067 ==

== ENCOUNTER → 2023-09-17 10:00 | Outpatient (BNV) | payer MEDICARE, SELFPAY | PROVIDERS: PCP Internal Medicine; Visit Provider Radiology Diagnostic Radiology | DX: Z12.31 Encounter for screening mammogram for malignant neoplasm of breast (principal) | CPT/HCPCS: 77063; 77067 ==

== ENCOUNTER 2023-11-17 08:18 | Day surgery (SDC) | payer MEDICARE, SELFPAY ==
--- NOTE | 2023-11-14 10:20 | HO.ANESPROP2 ---
Documented by User: Yoly Abbott NP 11/14/23 10:21 HPI - Anesthesia Eval Consult details Narrative: 73yo F for Colonoscopy PMFSH Active Problems Active Problems: All Active Problems Colitis (Acute) Adult general medical exam (Acute) Anxiety (Acute) Insomnia (Acute) Postherpetic neuralgia (Acute) Varicose veins of leg with pain (Acute) Primary osteoarthritis, left shoulder (Acute) Constipation (Acute) GERD (gastroesophageal reflux disease) (Acute) Vitamin D deficiency (Acute) Osteoporosis (Acute) Pure hypercholesterolemia (Acute) Past Medical History Medical History Fever Anxiety Insomnia Postherpetic neuralgia Varicose veins of leg with pain Primary osteoarthritis, left shoulder Constipation GERD (gastroesophageal reflux disease) Vitamin D deficiency Osteoporosis Pure hypercholesterolemia Family History Family History Father Medical history unknown Mother Medical history unknown Son No problems noted. Daughter No problems noted. Surgical History Surgical History History of colonoscopy Varicose vein of leg History of excision of mass History of total hysterectomy Social History Social History Household Members: None Housing: Apartment Alcohol intake: never Patient Tobacco Use Status: Never used Tobacco e-Cigarette/Vaping Use: Never Used Second Hand Smoke Exposure: No Advance Directives: No Advance Directives Information Provided: Yes service: No Current occupational status: disabled Cognitive needs: No Hearing needs: No Vision needs: No Meds Allergies Allergy/AdvReac Type Severity Reaction Status Date / Time morphine [MORPHINE] Allergy Intermediate HYPOTENSION, Verified 07/30/23 10:58 abdominal pains atorvastatin Allergy Unknown headaches,abdominal Verified 07/30/23 10:58 pains simvastatin Allergy Unknown myalgia Verified 07/30/23 10:58 trazodone AdvReac Unknown headaches, Verified 07/30/23 10:58 weakness Home Medications ?Medication ?Instructions ?Recorded ?Confirmed ?Last Taken ?Type ibuprofen 400 mg tablet 400 mg PO Q6H PRN pain 08/08/20 07/30/23 Unknown History polyethylene glycol 3350 17 17 g PO DAILY 08/13/20 07/30/23 Unknown History gram/dose oral powder (Miralax) Assessment and Plan Assessment Anesthesia Assessment: Chart Reviewed Documented by User: Irasema Rg MD 11/17/23 09:32 [facility] Past Medical History Medical History Fever Anxiety Insomnia Postherpetic neuralgia Varicose veins of leg with pain Primary osteoarthritis, left shoulder Constipation GERD (gastroesophageal reflux disease) Vitamin D deficiency Osteoporosis Pure hypercholesterolemia Family History Family History Father Medical history unknown Mother Medical history unknown Son No problems noted. Daughter No problems noted. Family history of problems with anesthesia: No Surgical History Surgical History History of colonoscopy Varicose vein of leg History of excision of mass History of total hysterectomy History of Problems with Anesthesia: No Social History Social History Household Members: None Housing: Apartment Alcohol intake: never Patient Tobacco Use Status: Never used Tobacco e-Cigarette/Vaping Use: Never Used Second Hand Smoke Exposure: No Advance Directives: No Advance Directives Information Provided: Yes service: No Current occupational status: disabled Cognitive needs: No Hearing needs: No Vision needs: No Meds Allergies Allergy/AdvReac Type Severity Reaction Status Date / Time morphine [MORPHINE] Allergy Intermediate HYPOTENSION, Verified 07/30/23 10:58 abdominal pains atorvastatin Allergy Unknown headaches,abdominal Verified 07/30/23 10:58 pains simvastatin Allergy Unknown myalgia Verified 07/30/23 10:58 trazodone AdvReac Unknown headaches, Verified 07/30/23 10:58 weakness Home Medications ?Medication ?Instructions ?Recorded ?Confirmed ?Last Taken ?Type ibuprofen 400 mg tablet 400 mg PO Q6H PRN pain 08/08/20 07/30/23 Unknown History polyethylene glycol 3350 17 17 g PO DAILY 08/13/20 07/30/23 Unknown History gram/dose oral powder (Miralax) Exam Airway Mallampati Class: II TM Dist: >3cm Neck ROM: Full Partial: Upper Heart: rrr Lungs: cta Assessment and Plan Final Anesthetic Review Family History of Problems with Anesthesia: No History of Problems with Anesthesia: No NPO: Yes ASA Class: II Final Preanesthetic Review: No Changes in Pt Med Stat, Meds/Allgs Chart Reviewed and Consent Obtained/Reviewed Patient Risk: Low Procedure Risk: Low Anesthetic Plan Anesthetic Plan: MAC: Disposition: Standard PACU
--- NOTE | 2023-11-17 09:20 | MHC.SHP ---
Pre-Procedural Eval Section A - 24 Hr Update-Section A only Date of Service: 11/17/23 The patient is an INPATIENT: No The patient has been examined within 24 hours of the surgical procedure. The History & Physical has been completed within 30 days and I have reviewed it.: No Section B - Complete if H&P > 30 days Chief Complaint: Colon cancer screening, chronic constipation Relevant Family History (Specify if Yes): No Relevant Social History: None Present Medications: see Short Stay Collaborative assessment Medical History: Significant History (Postherpetic neuralgia Varicose veins of leg with pain Primary osteoarthritis, left shoulder Constipation GERD (gastroesophageal reflux disease) Vitamin D deficiency Osteoporosis Pure hypercholesterolemia) History of Previous Operations: Relevant previous surgery/procedure and date(s) (History of colonoscopy Varicose vein of leg History of excision of mass History of total hysterectomy) Allergies: Allergies Allergy/AdvReac Type Severity Reaction Status Date / Time morphine [MORPHINE] Allergy Intermediate HYPOTENSION, Verified 07/30/23 10:58 abdominal pains atorvastatin Allergy Unknown headaches,abdominal Verified 07/30/23 10:58 pains simvastatin Allergy Unknown myalgia Verified 07/30/23 10:58 trazodone AdvReac Unknown headaches, Verified 07/30/23 10:58 weakness Review of Systems Sugical H&P ROS: Negative: Constitution, Cardiovascular and Respiratory and Yes, Specify: Gastrointestinal (Chronic constipation) Exam Surgical H&P Exam: Normal: Heart, Normal: Lungs, Normal: Extremities and Normal: Abdomen Plan Diagnosis/Plan: Unchanged I have reviewed the history and physical and performed a pertinent physical examination on my patient. No changes have occurred unless specified. Time Spent With Patient Time: Total time managing care of this patient today ____ minutes.
[2023-11-17 09:51] VITALS: BMI 17.7
--- NOTE | 2023-11-17 09:55 | W.PM.OPN ---
Operative Note Operative Note Date of Service: 11/17/23 Narrative: COLONOSCOPY TILL CECUM WITH BIOPSIES AND SNARE POLYPECTOMY Pre-op diagnosis: Colon cancer screening. Post-op diagnosis:? Colon polyps, Diverticulosis, hemorrhoids Endoscopist:? Francesco Barron MD Anesthesia:?MAC Consent: Indications for the procedure and potential complications of bleeding, perforation, reaction to medications and missed diagnosis were discussed with the patient and informed consent was obtained. Instrument: Olympus PCF H 190 L variable stiffness pediatric colonoscope Monitoring: Vital signs and clinical assessment, intermittent blood pressure monitoring, continuous EKG monitoring, Pulse oximetry and Carbon Dioxide monitoring were done throughout the procedure. Please see anesthesia flowsheet. Colon withdrawl time was 24 minutes. Procedure: The patient was placed in the left lateral decubitis position and pre-procedure medications were administered. After a digital rectal examination of the ano-rectum, the video colonoscope was inserted into the rectum and advanced through the colon to the cecum. The colonoscope was slowly withdrawn in a retrograde panoramic fashion and the colon mucosa was carefully examined including a retroflexed view of the rectum. Findings and interventions are described below. Procedure Difficulty: without difficulty Findings: Terminal Ileum: Not evaluated Cecum: A 7-8 mm sessile polyp - removed with a cold snare A 2-3 mm sessile polyp - removed with a cold biopsy Ascending Colon: Normal Transverse Colon: A 4-5 mm sessile polyp - removed with a cold biopsy Descending Colon: Moderate diverticulosis Sigmoid Colon: Moderate diverticulosis Rectum: A 7-8 mm diminutive appearing polyp - removed with a cold snare Ano-rectum: Small internal hemorrhoids Colon preparation: Good after some irrigation. [place] Bowel Preparation Scale Right colon; 2 Transverse colon: 2 Left colon; 2 (0 = Unprepared colon segment with mucosa not seen due to solid stool that cannot be cleared. 1 = Portion of mucosa of the colon segment seen, but other areas of the colon segment not well seen due to staining, residual stool and/or opaque liquid. 2 = Minor amount of residual staining, small fragments of stool and/or opaque liquid, but mucosa of colon segment seen well. 3 = Entire mucosa of colon segment seen well with no residual staining, small fragments of stool or opaque liquid) Impression and Post Procedure Diagnosis: Colonoscopy Findings: Four small polyps were removed Moderate diverticulosis seen in the left colon Small hemorrhoids on retroflexed exam. Plan: Pt has a FU appointment on 12/03/23 with Dina Sims NP Repeat Colonoscopy in 3-5 years if polyps are adenomatous and 10 year if polyps are hyperplastic. Above findings were reviewed with the patient and relevant handouts were given and the discharge area.
[2023-11-17 10:44] VITALS: BP 96/55; PULSE 84; RESP 16; TEMP 36.1; O2SAT 100
[2023-11-17 10:59] VITALS: BP 106/47; PULSE 70; RESP 16; TEMP 36.1; O2SAT 99
== END 2023-11-17 11:41 | disposition home or self-care (01) ==
PROVIDERS: PCP Internal Medicine; Visit Provider Internal Medicine Gastroenterology
PROC: 0DJD8ZZ Inspection of Lower Intestinal Tract, Via Natural or Artificial Opening Endoscopic (ICD-10-PCS; CPT 45378; principal; 2023-11-17 10:10)
DX: Z12.11 Encounter for screening for malignant neoplasm of colon (principal); K59.09 Other constipation; D12.0 Benign neoplasm of cecum; K63.5 Polyp of colon; K62.1 Rectal polyp; K57.30 Diverticulosis of large intestine without perforation or abscess without bleeding; K64.8 Other hemorrhoids; K29.70 Gastritis, unspecified, without bleeding; K21.9 Gastro-esophageal reflux disease without esophagitis; B02.29 Other postherpetic nervous system involvement; M81.0 Age-related osteoporosis without current pathological fracture; E55.9 Vitamin D deficiency, unspecified; E78.00 Pure hypercholesterolemia, unspecified; Z79.1 Long term (current) use of non-steroidal anti-inflammatories (NSAID); Z88.5 Allergy status to narcotic agent; Z88.8 Allergy status to other drugs, medicaments and biological substances
CPT/HCPCS: 45385; 45380; 88305; J2704

== ENCOUNTER → 2023-11-17 08:18 | Outpatient (BNV) | payer MEDICARE, SELFPAY | PROVIDERS: PCP Internal Medicine; Visit Provider Internal Medicine Gastroenterology | DX: Z12.11 Encounter for screening for malignant neoplasm of colon (principal); D12.0 Benign neoplasm of cecum; K63.5 Polyp of colon; K62.1 Rectal polyp; K57.90 Diverticulosis of intestine, part unspecified, without perforation or abscess without bleeding; K64.8 Other hemorrhoids | CPT/HCPCS: 45380; 45385 ==

== ENCOUNTER 2023-11-24 09:01 | Outpatient (REF) | payer MEDICARE, SELFPAY ==
[2023-11-24 09:14] LABS: MANUAL DIFF FLAG NO
[2023-11-24 09:32] LABS: Basophils Absolute Auto 0.1 X10*3/uL (0.0-0.2); Basophils Percent Auto 1.5 % (0-2); Eosinophils Absolute Auto 0.1 X10*3/uL (0.0-0.4); Eosinophils Percent Auto 1.5 % (0-4); Hematocrit 38.4 % (37.0-47.0); Hemoglobin 12.6 g/dl (12.0-16.0); Imm Gran Abs Auto 0.01 X10*3/uL (0.00-0.03); Imm Gran Pct Auto 0.3 % (0.0-0.4); Lymphocytes Absolute Auto 1.2 X10*3/uL (1.2-4.9); Lymphocytes Percent Auto 35.5 % (20-40); Mean Corpuscular HGB Conc 32.8 g/dl (31.0-35.0); Mean Corpuscular Hemoglobin 30.4 pg (27.0-33.0); Mean Corpuscular Volume 92.5 fL (80.0-98.0); Mean Platelet Volume 10.4 fL (9.4-12.3); Monocytes Absolute Auto 0.3 X10*3/uL (0.1-1.2); Monocytes Percent Auto 8.2 % (2-11); Neutrophils Absolute Auto 1.8 x10*3/uL (2.0-8.3); Platelet Count 212 X10*3/uL (160-400); Red Blood Count 4.15 X10*6/uL (4.20-5.50); Red Cell Distribution Width 13.2 % (11.0-16.0); White Blood Count 3.4 X10*3/uL (4.8-10.8)
[2023-11-24 09:38] LABS: Appearance Urine Clear; Color Urine Yellow; Glucose Urine UA Negative (Negative); Leukocyte Esterase Urine Trace (Negative); Nitrite Urine Negative (Negative); PH 6.5 (5.0-9.0); UMIC TRIGGER UACC YES; Urine Blood Trace (Negative); Urine Ketones Negative (Negative); Urine Protein Negative (Neg-Trace)
[2023-11-24 09:40] LABS: Bacteria Urine None Seen (None Seen); Hyaline Casts Urine 0-2 /LPF (0-2); Squamous Epithelial Cell Urine 0-2 /HPF (0-2); WBC Urine 0-5 /HPF (0-5)
[2023-11-24 10:21] LABS: Alanine Aminotransferase 11 U/L (0-31); Albumin Level 4.3 g/dL (3.5-5.0); Alkaline Phosphatase 77 U/L (39-117); Anion Gap 11 (12-20); Aspartate Amino Transferase 22 U/L (5-31); Bilirubin Total 0.5 mg/dL (0.0-1.0); Blood Urea Nitrogen 14 mg/dL (9-16); Calcium 10.1 mg/dL (8.4-10.2); Carbon Dioxide 29 mmol/L (22-29); Chloride 106 mmol/L (96-108); Cholesterol 244 mg/dL (<200); Estimated Glomerular Filt Rate > 60; Glucose Fasting 96 mg/dL (60-99); HDL Cholesterol 90 mg/dL (>40); LDL Cholesterol Calculated 135 mg/dL (<100); Potassium 3.9 mmol/L (3.3-5.1); Sodium 142 mmol/L (135-145); Total Protein 7.4 g/dL (6.5-8.0); Triglycerides 97 mg/dL (<150)
[2023-11-24 10:37] LABS: TSH reflex Free T4 2.29 uIU/mL (0.32-4.0); Vitamin D 25-OH Total 52.2 ng/mL (>30)
== END 2023-11-24 09:02 | disposition home or self-care (01) ==
LOC: HO.LAB 09:01
PROVIDERS: PCP Internal Medicine; Visit Provider Internal Medicine
DX: M81.0 Age-related osteoporosis without current pathological fracture (principal); Z79.899 Other long term (current) drug therapy; I10 Essential (primary) hypertension; E78.00 Pure hypercholesterolemia, unspecified; E55.9 Vitamin D deficiency, unspecified
CPT/HCPCS: 36415; 80053; 80061; 81001; 82306; 84443; 85025; 99212

== ENCOUNTER 2023-12-04 09:59 | Outpatient (AMB) | payer MEDICARE, SELFPAY ==
[2023-12-04 10:25] VITALS: BP 138/64; PULSE 75; O2SAT 98; BMI 18.8
--- NOTE | 2023-12-04 10:25 | MHC.PC.OV ---
Vital Signs 12/04/23 10:25 Height 5 ft 3 in Weight 106 lb 0.8 oz BMI 18.8 BP 138/64 Blood Pressure Location Lt brachial Position Sitting Pulse 75 Pulse Source Pulse Oximeter Pulse Oximetry (%) 98 Oxygen Delivery Method Room Air Intake Visit Reasons: hyperlipidemia, GERD, insomnia Intake Note: Patient is here to follow up on hyperlipidemia, GERD, insomnia Manager Cardiac Required: No Allergies morphine [MORPHINE] Allergy (Intermediate, Verified 12/04/23 11:56) HYPOTENSION, abdominal pains atorvastatin Allergy (Unknown, Verified 12/04/23 11:56) headaches,abdominal pains simvastatin Allergy (Unknown, Verified 12/04/23 11:56) myalgia trazodone Adverse Reaction (Unknown, Verified 12/04/23 11:56) headaches, weakness Medication List - Last Reconciled 12/04/23 by Seferino Azar MD calcium citrate 500 mg (2 x 250 mg calcium) PO DAILY 90 days cholecalciferol (vitamin D3) 125 mcg PO DAILY 90 days ibuprofen 400 mg PO Q6H PRN omega-3 fatty acids 1,000 mg PO DAILY NS omeprazole 20 mg PO DAILY 90 days polyethylene glycol 3350 (Miralax) 17 grams PO DAILY romosozumab-aqqg (Evenity) 210 mg (2.34 mL) subcut .qmonthly zolpidem 10 mg PO BEDTIME PRN 30 days Tobacco use date assessed: 12/04/23 Fall risk assessment: No Falls in past year Last assessed Fall Risk: 12/04/23 Dental Screening Dental Screen Date: 07/30/23 HPI hyperlipidemia, GERD, insomnia HPI Details Patient comes in today for her follow-up visit States that she feels okay She denies any headaches or dizziness Denies any chest pains, no shortness of breath No nausea/vomiting, no abdominal pain No change in bowel habits noted Needs her Vitamin D Rx refilled Had her follow-up labs done last week - to discuss her results [facility] Medical History Fever Anxiety Insomnia Postherpetic neuralgia Varicose veins of leg with pain Primary osteoarthritis, left shoulder Constipation GERD (gastroesophageal reflux disease) Vitamin D deficiency Osteoporosis Pure hypercholesterolemia Surgical History History of colonoscopy Varicose vein of leg History of excision of mass History of total hysterectomy Family History Father Medical history unknown Mother Medical history unknown Son No problems noted. Daughter No problems noted. Social History Household Members: None Housing: Apartment Alcohol intake: never Patient Tobacco Use Status: Never used Tobacco e-Cigarette/Vaping Use: Never Used Second Hand Smoke Exposure: No service: No Current occupational status: disabled Cognitive needs: No Hearing needs: No Vision needs: No Questionnaire Thrive Questionnaire Date Thrive assessed: 07/30/23 AUDIT C Alcohol Use Questionnaire (AUDIT-C) 1. How often do you have a drink containing alcohol?: Never 3. How often do you have six or more drinks on one occasion?: Never Total Score: 0 Score Reviewed/Action Taken: Yes JACOBO-7 AMB Questionnaire JACOBO-7 Date JACOBO - 7 assessed: 07/30/23 Source: Developed by Drs. Christiano Cuellar, Fabiola Tobin, Adalberto Patel and colleagues, with an educational raudel from [employer]. Review of Systems Const Reports difficulty sleeping (Rx helps), Denies fatigue, Denies fever(s) and Denies headache(s) ENT Denies dysphagia, Denies dizziness, Denies otalgia, Denies headache(s), Denies odynophagia and Denies sore throat Card Denies chest pain, Denies palpitations and Denies dyspnea Resp Denies cough and Denies dyspnea GI Denies abdominal pain, Denies constipation, Denies dysphagia, Denies heartburn, Denies diarrhea, Denies nausea, Denies odynophagia and Denies vomiting Denies difficulty voiding, Denies nocturia and Denies dysuria Musc Reports arthralgias (on and off) Neuro Denies dizziness and Denies headache(s) Endo Denies fatigue and Denies palpitations Physical exam (Primary Care) Vital Signs: Last Vital Signs Pulse 75 12/04/23 10:25 BP 138/64 12/04/23 10:25 Pulse Ox 98 12/04/23 10:25 Oxygen Delivery Method Room Air 12/04/23 10:25 BMI result Body Mass Index 18.8 Tobacco/Smoking Status: Tobacco use Status Tobacco use date assessed 12/04/23 12/04/23 10:26 Patient Tobacco Use Status Never used Tobacco 12/04/23 10:26 e-Cigarette/Vaping Use Never Used 12/04/23 10:26 Thrive Assessment: Date of Thrive Assessment Date Thrive assessed 07/30/23 12/04/23 10:26 Const General: no acute distress and alert HENMT Ears: TM's normal bilaterally and EAC's normal Throat: Yes posterior oropharynx normal and Yes tonsils normal (no TP congestion noted) Neck Neck: Yes no lymphadenopathy and Yes supple Thyroid: Thyroid normal Resp Auscultation: clear to auscultation bilaterally, no rales and no wheezes Cardio Rate: regular rate Rhythm: regular rhythm Heart sounds: no murmurs GI Palpation (GI): Soft to palpation and nontender Auscultation: normal bowel sounds General: Yes no CVA tenderness Back/Spine/Pelvis Back: no CVA tenderness Skin Rashes: no rashes Extrem General: Yes no clubbing, cyanosis or edema Results Reviewed Results Reviewed: Laboratory Tests 11/24/23 11/24/23 09:10 09:12 WBC 3.4 L Hgb 12.6 Hct 38.4 Plt Count 212 Sodium 142 Potassium 3.9 Creatinine 0.73 Estimated GFR > 60 Fasting Glucose 96 Calcium 10.1 AST 22 ALT 11 Triglycerides 97 Cholesterol 244 H LDL Cholesterol, Calc 135 H HDL Cholesterol 90 25-OH Vitamin D Total 52.2 TSH 2.29 Ur Specific [place] 1.020 Urine Protein Negative Urine Glucose (UA) Negative Urine Blood Trace H Urine Nitrite Negative Ur Leukocyte Esterase Trace H Assessment and Plan Assessment & Plan (1) Pure hypercholesterolemia: Comment: Has been unable to tolerate STATINS in the past Code(s): E78.00 - Pure hypercholesterolemia, unspecified Plan: Results of her labs done last week reviewed and discussed with patient She is advised that her cholesterol levels on her recent labs were still elevated and have improved minimally from previous Reinforced low cholesterol diet She has not been able to tolerate any statins in the past States that she continues to take OTC [place]-3 capsules daily Will try starting her on Repatha 140 mg SQ every 2 weeks Will recheck labs and fasting lipids in 4 months for follow up (2) Osteoporosis: Code(s): M81.0 - Age-related osteoporosis without current pathological fracture Qualifiers: Osteoporosis type: age-related Presence of current pathological fracture: without current pathological fracture Qualified Code(s): M81.0 - Age-related osteoporosis without current pathological fracture Plan: Repeat BMD last done on 05/15/2022 revealed (+) significant osteoporosis, with no significant change from previous BMD in 2019 Continue Alendronate 70 mg once a week; patient has declined injectable antiresorptive therapy, which was recommended as first-line Tx for her previously allthough she is now willing to try it if Dr. Montenegro can get her Rx for Evenity approved by her insurance company If approved, the plan is to switch her to Evenity for a year, then switch her back to Alendronate She is reminded to continue taking her oral Calcium and Vitamin D supplements daily Follow up with endocrinology (Dr. Montenegro) as scheduled (3) Vitamin D deficiency: Code(s): E55.9 - Vitamin D deficiency, unspecified Plan: Continue Vitamin D3 5000 units QD (4) GERD (gastroesophageal reflux disease): Code(s): K21.9 - Gastro-esophageal reflux disease without esophagitis Qualifiers: Esophagitis presence: without esophagitis Qualified Code(s): K21.9 - Gastro-esophageal reflux disease without esophagitis Plan: Dietary restrictions reinforced Continue Omeprazole 20 mg QD PRN (5) Constipation: Code(s): K59.00 - Constipation, unspecified Qualifiers: Constipation type: unspecified constipation type Qualified Code(s): K59.00 - Constipation, unspecified Plan: Had a bout of severe constipation last year and she ended up with some rectal bleeding, which has since resolved and her symptoms have NOT recurred since Encouraged again to continue increased oral fluids and dietary fiber Continue Miralax 17 gm QD Patient had a normal colonoscopy with Dr. Shi back in 2013 and is due for repeat in 10 years (2023) but because of her recent rectal bleeding, was recommended to at least get a Cologuard done in 2021, which came back negative She had her repeat colonoscopy done a few weeks ago on 11/17/2023 - (+) tubular adenoma and she was advised to have a colonoscopy repeated in 3 to 5 years (6) Primary osteoarthritis, left shoulder: Code(s): M19.012 - Primary osteoarthritis, left shoulder Plan: X-rays of the left shoulder done a couple of years ago showed (+) mild OA changes in the AC joint Patient is reminded to continue with regular shoulder exercises to help manage pain more effectively -? patient states that shoulder has not been bothering her as much lately To consider physical therapy and/ or orthopedics referral if symptoms increase or worsen (7) Varicose veins of leg with pain: Code(s): I83.819 - Varicose veins of unspecified lower extremity with pain Qualifiers: Laterality: unspecified laterality Qualified Code(s): I83.819 - Varicose veins of unspecified lower extremity with pain Plan: Follow up with vascular surgery (Dr. Glenn Anderson) as scheduled or as needed (8) Insomnia: Code(s): G47.00 - Insomnia, unspecified Qualifiers: Insomnia type: unspecified Qualified Code(s): G47.00 - Insomnia, unspecified Plan: Sleep hygiene reinforced Continue Zolpidem 10 mg once a day at bedtime as needed (9) Anxiety: Code(s): F41.9 - Anxiety disorder, unspecified Plan: Continue Hydroxyzine 25 mg 3 times a day as needed Plan Follow up in 4 months Orders: Orders Comprehensive [place]. Panel Fast 4 Months E78.00 - Pure hypercholesterolemia, unspecified Lipid Panel 4 Months E78.00 - Pure hypercholesterolemia, unspecified TSH reflex Free T4 4 Months E78.00 - Pure hypercholesterolemia, unspecified UA CC w/rflx Micro + Cult 4 Months R30.0 - Dysuria Complete Blood Count Auto Diff 4 Months D64.9 - Anemia, unspecified Vitamin D 25-OH Total 4 Months E55.9 - Vitamin D deficiency, unspecified Medications: Yaya Alex (evolocumab) Has been UNABLE to tolerate all commercially available oral statins due to side effects (severe myalgia and weakness) 140 mg subcut Q2W 4 weeks 2 mL 3RF NS E78.00 - Pure hypercholesterolemia, unspecified Refilled cholecalciferol (vitamin D3) 125 mcg PO DAILY 90 days 90 caps 3RF E55.9 - Vitamin D deficiency, unspecified, M81.0 - Age-related osteoporosis without current pathological fracture Coding Level of Care Code Est Pt Level 4 (64316) Diagnoses Pure hypercholesterolemia E78.00 Age-related osteoporosis without current pathological fracture M81.0 Osteoporosis type: age-related Presence of current pathological fracture: without current pathological fracture Vitamin D deficiency E55.9 Gastroesophageal reflux disease without esophagitis K21.9 Esophagitis presence: without esophagitis Constipation, unspecified constipation type K59.00 Constipation type: unspecified constipation type Primary osteoarthritis, left shoulder M19.012 Varicose veins of lower extremity with pain, unspecified laterality I83.819 Laterality: unspecified laterality Insomnia, unspecified type G47.00 Insomnia type: unspecified Anxiety F41.9
== END 2023-12-04 12:02 | disposition home or self-care (01) ==
PROVIDERS: PCP Internal Medicine; Visit Provider Internal Medicine
DX: E78.00 Pure hypercholesterolemia, unspecified (principal); M81.0 Age-related osteoporosis without current pathological fracture; E55.9 Vitamin D deficiency, unspecified; K21.9 Gastro-esophageal reflux disease without esophagitis; K59.00 Constipation, unspecified; M19.012 Primary osteoarthritis, left shoulder; I83.819 Varicose veins of unspecified lower extremity with pain; G47.00 Insomnia, unspecified; F41.9 Anxiety disorder, unspecified
CPT/HCPCS: 99214

== ENCOUNTER 2024-01-09 12:42 | Outpatient (AMB) | payer MEDICARE, SELFPAY ==
--- NOTE | 2024-01-09 12:48 | MHC.OFFVIS ---
Vital Signs 01/09/24 12:49 Height 5 ft 3 in Weight 105 lb BMI 18.6 BP 116/56 L Blood Pressure Location Lt brachial Position Sitting Pulse 78 Intake Visit Reasons: S/P [place]; Dr. Sky Intake Note: Patient follow up for Colonoscopy results. Patient cc: Constipation on and off. Denies any other GI issues. 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 Sky: Details: LAST VISIT Colitis GERD (gastroesophageal reflux disease) Constipation Plan Will schedule patient for diagnostic colonoscopy. History of colitis, positive Hemoccult. Patient had normal CRP. Most likely colitis related to E coli bacteria. Patient reports that she is moving her bowels well now. Denies any melena, hematochezia, unintentional weight loss or ribbon like stools. Patient denies any dyspepsia, dysphagia or odynophagia. Patient denies any issues with anesthesia in the past. No history of sleep apnea. Not on any anticoagulation medication. Denies any respiratory or cardiac symptoms. What to expect before during and after procedure discussed with patient. Clear liquid diet and good bowel prep day before procedure discussed cessation. I will see her after the procedure, sooner on as needed basis. Patient is agreeable to this plan and verbalizes understanding of instructions. She was given the opportunity to ask questions all questions answered. ? Thank you for allowing me to participate in her care Medications New bisacodyl (Dulcolax (bisacodyl)) take 4 tabs at noon the day before your colonoscopy 20 mg (4 x 5 mg) PO ONCE 1 day 4 tabs 0RF Z12.11 polyethylene glycol 3350 (Miralax) As directed by gastroenterology department at [facility] 238 grams PO ONCE 238 grams 0RF Z12.11 COLONOSCOPY Findings: Terminal Ileum: Not evaluated Cecum: A 7-8 mm sessile polyp - removed with a cold snare A 2-3 mm sessile polyp - removed with a cold biopsy Ascending Colon: Normal Transverse Colon: A 4-5 mm sessile polyp - removed with a cold biopsy Descending Colon: Moderate diverticulosis Sigmoid Colon: Moderate diverticulosis Rectum: A 7-8 mm diminutive appearing polyp - removed with a cold snare Ano-rectum: Small internal hemorrhoids Colon preparation: Good after some irrigation. Aroda Bowel Preparation Scale Right colon; 2 Transverse colon: 2 Left colon; 2 (0 = Unprepared colon segment with mucosa not seen due to solid stool that cannot be cleared. 1 = Portion of mucosa of the colon segment seen, but other areas of the colon segment not well seen due to staining, residual stool and/or opaque liquid. 2 = Minor amount of residual staining, small fragments of stool and/or opaque liquid, but mucosa of colon segment seen well. 3 = Entire mucosa of colon segment seen well with no residual staining, small fragments of stool or opaque liquid) Impression and Post Procedure Diagnosis: Colonoscopy Findings: Four small polyps were removed Moderate diverticulosis seen in the left colon Small hemorrhoids on retroflexed exam. Plan: Repeat Colonoscopy in 3-5 years if polyps are adenomatous and 10 year if polyps are hyperplastic. Above findings were reviewed with the patient and relevant handouts were given and the discharge area. PATHOLOGY Diagnosis A. Colon, cecal polyps: Tubular adenomas (2 pieces); negative for high-grade dysplasia and carcinoma. B. Colon, transverse, polyp: Fragments of colonic mucosa with no specific change; no adenomatous dysplasia seen. C. Colon, rectal polyp: Hyperplastic polyp TODAY'S VISIT Patient is here today for follow-up and to discuss colonoscopy results. Patient denies any ill effects from the prep, anesthesia or procedure itself. Patient reports that she has been doing well after the procedure. Moving her bowels without any issues. Denies any melena, hematochezia. Tubular adenoma found in cecum, transverse polyp no adenoma or dysplasia, colonic mucosa, rectal polyp hyperplastic polyp. Patient denies any GI concerning symptoms occasional constipation, not taking any medications. Patient usually tries to increase fiber and fluids intake when she is constipated. Patient denies any dyspepsia, dysphagia or odynophagia. Patient reports that she is taking omeprazole on her symptoms of acid reflux are suppressed [facility] Medical History (Updated 01/09/24 @ 13:34 by Ellie Sims, [facility]) Tubular adenoma of colon Diverticulosis Fever Anxiety Insomnia Postherpetic neuralgia Varicose veins of leg with pain Primary osteoarthritis, left shoulder Constipation GERD (gastroesophageal reflux disease) Vitamin D deficiency Osteoporosis Pure hypercholesterolemia Surgical History History of colonoscopy Varicose vein of leg History of excision of mass History of total hysterectomy Family History Father Medical history unknown Mother Medical history unknown Son No problems noted. Daughter No problems noted. Social History Household Members: None Housing: Apartment Alcohol intake: never Patient Tobacco Use Status: Never used Tobacco e-Cigarette/Vaping Use: Never Used Second Hand Smoke Exposure: No service: No Current occupational status: disabled Cognitive needs: No Hearing needs: No Vision needs: No Review of Systems Const Denies weight gain and Denies weight loss ENT Reports no additional complaints, Denies dysphagia and Denies odynophagia Card Reports no additional complaints Resp Reports no additional complaints GI Denies abdominal pain, Denies belching, Denies melena, Denies bloating, Denies change in bowel habits, Denies dysphagia, Denies excessive flatus, Denies dyspepsia, Denies heartburn, Denies diarrhea, Denies loose stools, Denies nausea, Denies odynophagia and Denies vomiting Musc Reports no additional complaints Neuro Reports no additional complaints Psych Reports no additional complaints Endo Reports no additional complaints Physical Exam Vital Signs: Last Vital Signs Pulse 78 01/09/24 12:49 BP 116/56 L 01/09/24 12:49 BMI result Body Mass Index 18.6 Const General: healthy appearing, no acute distress and well developed Nutritional Appearance: well nourished Orientation/consciousness: patient oriented x3 Resp Effort & Inspection: normal respiratory effort, able to speak in complete sentences, no tracheal deviation and symmetric chest movement Auscultation: clear to auscultation bilaterally Cardio Rate: regular rate GI Inspection: Yes normal to inspection and No distended Palpation (GI): Soft to palpation, not firm, nontender and No hepatosplenomegaly present Auscultation: normal bowel sounds General: Yes no CVA tenderness Back/Spine/Pelvis Back: no CVA tenderness Skin General skin exam: elasticity normal, turgor normal and dry skin Neuro General: patient oriented x3 Psych Appearance: grossly normal Mental Status: mental status grossly normal Assessment & Plan Assessment & Plan (1) Diverticulosis: Code(s): K57.90 - Diverticulosis of intestine, part unspecified, without perforation or abscess without bleeding Category: Medical (2) Status post colonoscopy: Code(s): Z98.890 - Other specified postprocedural states (3) Tubular adenoma of colon: Code(s): D12.6 - Benign neoplasm of colon, unspecified Category: Medical (4) GERD (gastroesophageal reflux disease): Code(s): K21.9 - Gastro-esophageal reflux disease without esophagitis Category: Medical Qualifiers: Esophagitis presence: without esophagitis Qualified Code(s): K21.9 - Gastro-esophageal reflux disease without esophagitis Plan Continue omeprazole daily. Patient will increase fiber in her diet. Increase fluid intake and activity to promote better bowel motility. Avoid dietary triggers and late night snacking staying upright for minimum 3 hours after meals discussed with patient. Patient will return for colorectal screening in 3 years, sooner if clinically necessary. Patient will follow-up with us on as-needed basis. She will call if she will have any GI concerning symptoms. She is agreeable to this plan and verbalizes understanding of instructions. She was given the opportunity to ask questions and all questions answered. Thank you for allowing me participate in her care Coding Level of Care Code Est Pt Level 3 (21867) Diagnoses Diverticulosis K57.90 Status post colonoscopy Z98.890 Tubular adenoma of colon D12.6 Gastroesophageal reflux disease without esophagitis K21.9 Esophagitis presence: without esophagitis Time Spent (min) 25 Comment 15 minutes spent with patient and additional 10 minutes spent reviewing her records
[2024-01-09 12:49] VITALS: BP 116/56; PULSE 78; BMI 18.6
== END 2024-01-09 13:47 | disposition home or self-care (01) ==
PROVIDERS: PCP Internal Medicine; Visit Provider Nurse Practitioner Family
DX: K57.90 Diverticulosis of intestine, part unspecified, without perforation or abscess without bleeding (principal); Z98.890 Other specified postprocedural states; D12.6 Benign neoplasm of colon, unspecified; K21.9 Gastro-esophageal reflux disease without esophagitis
CPT/HCPCS: 99213

== ENCOUNTER → 2024-01-09 12:42 | Outpatient (BNVA) | payer MEDICARE, SELFPAY | PROVIDERS: PCP Internal Medicine; Visit Provider Nurse Practitioner Family | DX: K57.90 Diverticulosis of intestine, part unspecified, without perforation or abscess without bleeding (principal); K21.9 Gastro-esophageal reflux disease without esophagitis; D12.6 Benign neoplasm of colon, unspecified; Z98.890 Other specified postprocedural states | CPT/HCPCS: 99212 ==

== ENCOUNTER 2024-03-08 09:13 | Outpatient (AMB) | payer MEDICARE, SELFPAY ==
--- NOTE | 2024-03-08 10:19 | AM.OFFVISNUR ---
Intake Visit Reasons: [place] Allergies morphine [MORPHINE] Allergy (Intermediate, Verified 01/09/24 12:48) HYPOTENSION, abdominal pains atorvastatin Allergy (Unknown, Verified 01/09/24 12:48) headaches,abdominal pains simvastatin Allergy (Unknown, Verified 01/09/24 12:48) myalgia trazodone Adverse Reaction (Unknown, Verified 01/09/24 12:48) headaches, weakness Office Meds romosozumab-aqqg 210 mg/2.34 mL(105 mg/1.17 mL x2)subcutaneous syringe Performing Provider: Christiano Montenegro MD Per[place] Location[place] [facility] [place] [facility] Administered by: Stephanie Packer RN on 03/08/24 10:19 Dose Route Admin Location Dispensed Lot Number Expiration Date [facility] Certified Personal Trainer 210 mg subcut bilateral upper arms 2.34 mL [id number] 07/20/26 08904-269-65 AM[facility] Comments: Visit interpreted by Anna Hernandez LMT. Consent form signed. Pt tolerated injection well. Pt observed for 15 minutes following injection. Pt advised to watch for signs of site reaction and to call us with any worsening redness, warmth or swelling. Pt aware to call with any other concerns. Assessment & Plan Assessment & Plan Orders: Orders AMB Romosozumab Injection Patient Supplied Today M81.0 - Age-related osteoporosis without current pathological fracture Medications: New romosozumab-aqqg 210 mg (2.34 mL) subcut ONCE 2.34 mL 0RF M81.0 - Age-related osteoporosis without current pathological fracture
== END 2024-03-08 10:17 | disposition home or self-care (01) ==
PROVIDERS: PCP Internal Medicine
DX: M81.0 Age-related osteoporosis without current pathological fracture (principal)

== ENCOUNTER → 2024-03-08 09:13 | Outpatient (BNVA) | payer MEDICARE, SELFPAY | PROVIDERS: PCP Internal Medicine | DX: M81.0 Age-related osteoporosis without current pathological fracture (principal) | CPT/HCPCS: 96372; J3111 ==

== ENCOUNTER 2024-04-05 08:39 | Outpatient (AMB) | payer MEDICARE, SELFPAY ==
--- NOTE | 2024-04-05 09:04 | AM.OFFVISNUR ---
Intake Visit Reasons: evenity #2 Allergies morphine [MORPHINE] Allergy (Intermediate, Verified 01/09/24 12:48) HYPOTENSION, abdominal pains atorvastatin Allergy (Unknown, Verified 01/09/24 12:48) headaches,abdominal pains simvastatin Allergy (Unknown, Verified 01/09/24 12:48) myalgia trazodone Adverse Reaction (Unknown, Verified 01/09/24 12:48) headaches, weakness Office Meds romosozumab-aqqg 210 mg/2.34 mL(105 mg/1.17 mL x2)subcutaneous syringe Performing Provider: Christiano Montenegro MD Performing Location: [facility] [place] [facility] Administered by: Stephanie Packer RN on 04/05/24 09:04 Dose Route Admin Location Dispensed Lot Number Expiration Date [employer] Import Coordinator 210 mg subcut bilateral upper arms 2.34 mL [id number] 01/17/25 06428-750-18 AM[facility] Comments: Visit interpreted by Anna Hernandez LMT. Consent form signed. Pt tolerated injection well. Pt denies any adverse reactions with previous injections. Assessment & Plan Assessment & Plan Orders: Orders AMB Romosozumab Injection Patient Supplied Today M81.0 - Age-related osteoporosis without current pathological fracture Medications: New romosozumab-aqqg 210 mg (2.34 mL) subcut ONCE 2.34 mL 0RF M81.0 - Age-related osteoporosis without current pathological fracture
== END 2024-04-05 09:00 | disposition home or self-care (01) ==
PROVIDERS: PCP Internal Medicine
DX: M81.0 Age-related osteoporosis without current pathological fracture (principal)

== ENCOUNTER → 2024-04-05 08:39 | Outpatient (BNVA) | payer MEDICARE, SELFPAY | PROVIDERS: PCP Internal Medicine | DX: M81.0 Age-related osteoporosis without current pathological fracture (principal) | CPT/HCPCS: 96372; J3111 ==

== ENCOUNTER 2024-04-06 09:07 | Outpatient (AMB) | payer MEDICARE, SELFPAY ==
--- NOTE | 2024-04-06 09:15 | A.OFFVIS_ITS ---
Vital Signs 04/06/24 09:18 Height 5 ft 3.5 in Weight 109 lb 2.061 oz BMI 19.0 BP 110/60 Blood Pressure Location Rt brachial Position Sitting Pulse 64 Pulse Source Pulse Oximeter Intake Visit Reasons: f/u Osteoporosis Intake Note: Patient presents today for Osteoporosis follow up. 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 Production Supervisor Language: [employer] App[employer] Services: Cheese Production Supervisor Present Cheese Production Supervisor Name: Willow [email or web address] Information Interpreted: non-clinical & clinical Accompanied by: Self / Same As Patient Allergies morphine [MORPHINE] Allergy (Intermediate, Verified 04/06/24 09:20) HYPOTENSION, abdominal pains atorvastatin Allergy (Unknown, Verified 04/06/24 09:20) headaches,abdominal pains simvastatin Allergy (Unknown, Verified 04/06/24 09:20) myalgia trazodone Adverse Reaction (Unknown, Verified 04/06/24 09:20) headaches, weakness Medication List - Last Reconciled 04/06/24 by Christiano Montenegro MD calcium citrate 500 mg (2 x 250 mg calcium) PO DAILY 90 days cholecalciferol (vitamin D3) 125 mcg PO DAILY 90 days ibuprofen 400 mg PO Q6H PRN omega-3 fatty acids 1,000 mg PO DAILY NS omeprazole 20 mg PO DAILY 90 days polyethylene glycol 3350 (Miralax) 17 grams PO DAILY Repatha SureClick (evolocumab) 140 mg subcut Q2W 4 weeks NS romosozumab-aqqg (Evenity) 210 mg (2.34 mL) subcut .qmonthly zolpidem 10 mg PO BEDTIME PRN 30 days HPI Comments Details: 74-year-old female today for visit, shefor osteoporosis management . She is feeling well. She has no complaints. Patient was diagnosed with osteoporosis on April 2020. She reports she had bone density performed around 20 years ago which was normal. She has past medical history of oophorectomy at age 53, she was on estrogen for about 2 months but she had side effects. She has no secondary etiologies for osteoporosis. She does not have hyperparathyroidism, multiple myeloma, hyperthyroidism. She denies prior fragility fractures, she has history of GERD, she is on omepraz ole as needed. She does have positive FH of osteoporosis in her mother but no fractures, she denies nephrolithiasis, denies steroids used, never smoker, never on anti seizures medications,. He has negative History of malignancy or head or neck irradiation. Bisphosphonates use: She was started on alendronate 70 mg Q weekly Calcium intake: She has been on calcium citrate 500 mg twice a day. Vitamin D: 5000 international units daily. OTC Herbal medications. None. 05/12/2020 BONE DENSITOMETRY FINDINGS: AP SPINE L1-L4: BMD 0.710 g/cm2, Z-score -1.5, T-score -3.9, osteoporosis. LEFT FEMUR, NECK: BMD 0.597 g/cm2, Z-score -1.1, T-score -3.2, osteoporosis. LEFT FEMUR, TOTAL: BMD 0.679 g/cm2, Z-score -0.7, T-score -2.6, osteoporosis. FINDINGS: AP SPINE L1-L3 (excluding L4): The data of L1-L4 has been changed to exclude the L4 vertebral body, because degenerative sclerosis at this level may cause overestimation of lumbar spine density. Current: BMD 0.616 g/cm2, Z-score -2.4, T-score -4.6, osteoporosis, 9.7% decrease from baseline (<5% change is not significant). Baseline: BMD 0.682 g/cm2. LEFT FEMUR, NECK: Current: BMD 0.583 g/cm2, Z-score -1.2, T-score -3.3, osteoporosis. Baseline: BMD 0.597 g/cm2. LEFT FEMUR, TOTAL: Current: BMD 0.651 g/cm2, Z-score -0.9, T-score -2.8, osteoporosis, 4.1% decrease from baseline (<5% change is not significant). Baseline: BMD 0.679 g/cm2. IDENTIFIED RISK FACTORS: Menopause, hysterectomy, bilateral oophorectomy, height loss, low body weight, osteoporosis. HISTORY OF FRACTURE: None listed. MEDICATIONS: Calcium supplements, vitamin D, bisphosphonate. MM/XR DEXA axial skeleton IMPRESSION: 1. DIAGNOSIS: Osteoporosis based on the lowest T-score va Laboratory Tests 04/08/20 10/11/20 10/11/20 09:08 09:15 09:15 Hgb Hct Creatinine Estimated GFR Alkaline Phosphatase Total Protein (PEP) Albumin Albumin (PEP) Nrvxw-4-Qmpenwgyw Fyykk-3-Modkftcys Yczr-3-Dxkqoalb Idnb-9-Fojqobnq N-Telopeptide X-linked 55 25-OH Vitamin D Total 1,25 Dihydroxy Vit D 43 1,25 Dihydroxy Vit D3 43 TSH TSH 3rd Generation 2.68 PTH Intact 42 Calcium (PTH Intact) 10.1 Ur 24 Hour Volume Urine Creatinine 112 Ur Creatinine mg/dL Ur Creatinine 24 Hour Ur Calcium 24 Hr Calcium/Creat 24 Hr IgA Endomysial Ab Titer Endomysial IgA Ab Tiss Transglutamin IgG 10/11/20 10/14/20 10/14/20 09:15 08:00 08:00 Hgb Hct Creatinine Estimated GFR Alkaline Phosphatase Total Protein (PEP) 6.9 Albumin Albumin (PEP) 4.5 Mcmej-4-Mwqjdhhhm 0.2 Qvlfd-4-Ramdpgsam 0.6 Ksfb-4-Ztplyyjy 0.4 Wnyp-6-Niuxcbpf 0.4 N-Telopeptide X-linked 25-OH Vitamin D Total 1,25 Dihydroxy Vit D 1,25 Dihydroxy Vit D3 TSH TSH 3rd Generation PTH Intact Calcium (PTH Intact) Ur 24 Hour Volume 1100 Urine Creatinine Ur Creatinine mg/dL 59.30 Ur Creatinine 24 Hour Ur Calcium 24 Hr 96 Calcium/Creat 24 Hr 150 IgA 265 Endomysial Ab Titer TNP Endomysial IgA Ab Negative Tiss Transglutamin IgG 2 10/14/20 12/04/20 12/04/20 08:00 09:36 09:36 Hgb 11.2 L Hct 35.1 L Creatinine 0.71 Estimated GFR > 60 Alkaline Phosphatase 74 Total Protein (PEP) Albumin 4.2 Albumin (PEP) Rjxdb-3-Pnpxmdvxf Xtgjg-9-Ydkfmlbcq Jumw-0-Hrcqoiaq Kyfu-1-Zxeqsnzf N-Telopeptide X-linked 25-OH Vitamin D Total 37.6 1,25 Dihydroxy Vit D 1,25 Dihydroxy Vit D3 TSH 1.99 TSH 3rd Generation PTH Intact Calcium (PTH Intact) Ur 24 Hour Volume Urine Creatinine Ur Creatinine mg/dL Ur Creatinine 24 Hour 0.65 Ur Calcium 24 Hr Calcium/Creat 24 Hr IgA Endomysial Ab Titer Endomysial IgA Ab Tiss Transglutamin IgG Laboratory Tests 04/08/20 08/02/20 08/02/20 09:08 10:37 10:37 Hgb 11.5 L Hct 35.8 L Creatinine 0.68 Estimated GFR > 60 Calcium 9.5 Alkaline Phosphatase 77 Albumin 4.4 25-OH Vitamin D Total 19.2 TSH 1.67 TSH 3rd Generation 2.68 Currently on Evenity since 02/2024. No fx since last visit. 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 Daughter No problems noted. Social History Household Members: None Housing: Apartment Alcohol intake: never Patient Tobacco Use Status: Never used Tobacco e-Cigarette/Vaping Use: Never Used Second Hand Smoke Exposure: No service: No Current occupational status: disabled Cognitive needs: No Hearing needs: No Vision needs: No Physical Exam Vital Signs: BMI result Body Mass Index 19.0 Assessment & Plan Assessment & Plan (1) Osteoporosis: Code(s): M81.0 - Age-related osteoporosis without current pathological fracture Category: Medical Qualifiers: Osteoporosis type: age-related Presence of current pathological fracture: without current pathological fracture Qualified Code(s): M81.0 - Age- related osteoporosis without current pathological fracture Plan: This is a 73-year-old female with a history of osteoporosis being treated with alendronate 70 mg Q weekly. Secondary workup was negative. Currently on Evenity for 2 mos Plan is to continue the calcium, vitamin-D supplementation and Evenity . Plan is to continue the of any for full 1 year's course and then can switch to anti resorptive therapy like Prolia or bisphosphonate Coding Level of Care Code Est Pt Level 3 (77969) Diagnoses Age-related osteoporosis without current pathological fracture M81.0 Osteoporosis type: age-related Presence of current pathological fracture: without current pathological fracture
[2024-04-06 09:18] VITALS: BP 110/60; PULSE 64; BMI 19.0
== END 2024-04-06 09:33 | disposition home or self-care (01) ==
PROVIDERS: PCP Internal Medicine; Visit Provider Internal Medicine Endocrinology, Diabetes & Metabolism
DX: M81.0 Age-related osteoporosis without current pathological fracture (principal)
CPT/HCPCS: 99213

== ENCOUNTER → 2024-04-06 09:07 | Outpatient (BNVA) | payer MEDICARE, SELFPAY | PROVIDERS: PCP Internal Medicine; Visit Provider Internal Medicine Endocrinology, Diabetes & Metabolism | DX: M81.0 Age-related osteoporosis without current pathological fracture (principal) | CPT/HCPCS: 99212 ==

== ENCOUNTER 2024-04-12 09:07 | Outpatient (REF) | payer MEDICARE, SELFPAY ==
[2024-04-12 09:24] LABS: MANUAL DIFF FLAG NO
[2024-04-12 10:17] LABS: Basophils Absolute Auto 0.1 X10*3/uL (0.0-0.2); Basophils Percent Auto 1.2 % (0-2); Eosinophils Absolute Auto 0.1 X10*3/uL (0.0-0.4); Eosinophils Percent Auto 1.2 % (0-4); Hematocrit 37.5 % (37.0-47.0); Hemoglobin 12.1 g/dl (12.0-16.0); Imm Gran Abs Auto 0.01 X10*3/uL (0.00-0.03); Imm Gran Pct Auto 0.2 % (0.0-0.4); Lymphocytes Absolute Auto 1.4 X10*3/uL (1.2-4.9); Mean Corpuscular HGB Conc 32.3 g/dl (31.0-35.0); Mean Corpuscular Hemoglobin 30.1 pg (27.0-33.0); Mean Corpuscular Volume 93.3 fL (80.0-98.0); Mean Platelet Volume 10.9 fL (9.4-12.3); Monocytes Absolute Auto 0.3 X10*3/uL (0.1-1.2); Monocytes Percent Auto 7.4 % (2-11); Neutrophils Absolute Auto 2.3 x10*3/uL (2.0-8.3); Platelet Count 204 X10*3/uL (160-400); Red Blood Count 4.02 X10*6/uL (4.20-5.50); Red Cell Distribution Width 13.2 % (11.0-16.0)
[2024-04-12 11:16] LABS: Alanine Aminotransferase 12 U/L (0-31); Albumin Level 4.2 g/dL (3.5-5.0); Alkaline Phosphatase 98 U/L (39-117); Anion Gap 11 (12-20); Aspartate Amino Transferase 22 U/L (5-31); Bilirubin Total 0.6 mg/dL (0.0-1.0); Blood Urea Nitrogen 14 mg/dL (9-16); Calcium 9.3 mg/dL (8.4-10.2); Carbon Dioxide 29 mmol/L (22-29); Chloride 108 mmol/L (96-108); Cholesterol 235 mg/dL (<200); Estimated Glomerular Filt Rate > 60; Glucose Fasting 93 mg/dL (60-99); HDL Cholesterol 85 mg/dL (>40); LDL Cholesterol Calculated 133 mg/dL (<100); Potassium 4.2 mmol/L (3.3-5.1); Sodium 144 mmol/L (135-145); TSH reflex Free T4 1.69 uIU/mL (0.32-4.0); Total Protein 7.1 g/dL (6.5-8.0); Triglycerides 85 mg/dL (<150); Vitamin D 25-OH Total 61.9 ng/mL (>30)
[2024-04-12 14:08] LABS: Appearance Urine Clear; Color Urine Yellow; Glucose Urine UA Negative (Negative); Leukocyte Esterase Urine Negative (Negative); Nitrite Urine Negative (Negative); Specific Gravity - Urine 1.015 (1.005-1.025); UMIC TRIGGER UACC YES; Urine Blood Small (1+) (Negative); Urine Ketones Negative (Negative); Urine Protein Negative (Neg-Trace)
[2024-04-12 14:19] LABS: Bacteria Urine None Seen (None Seen); Hyaline Casts Urine 0-2 /LPF (0-2); Squamous Epithelial Cell Urine 0-2 /HPF (0-2); WBC Urine 0-5 /HPF (0-5)
== END 2024-04-12 09:08 | disposition home or self-care (01) ==
LOC: HO.LAB 09:07
PROVIDERS: PCP Internal Medicine; Visit Provider Internal Medicine
DX: E55.9 Vitamin D deficiency, unspecified (principal); D64.9 Anemia, unspecified; E78.00 Pure hypercholesterolemia, unspecified
CPT/HCPCS: 36415; 80053; 80061; 81001; 81003; 82306; 84443; 85025

== ENCOUNTER 2024-04-13 08:23 | Outpatient (AMB) | payer MEDICARE, SELFPAY ==
[2024-04-13 08:31] VITALS: BP 128/80; PULSE 64; O2SAT 99; BMI 18.8
--- NOTE | 2024-04-13 08:31 | MHC.PC.OV ---
Vital Signs 04/13/24 08:31 Height 5 ft 3.5 in Blood Pressure Location Lt brachial Position Sitting Pulse Source Pulse Oximeter Oxygen Delivery Method Room Air Intake Visit Reasons: SAWV Allergies morphine [MORPHINE] Allergy (Intermediate, Verified 04/06/24 09:20) HYPOTENSION, abdominal pains atorvastatin Allergy (Unknown, Verified 04/06/24 09:20) headaches,abdominal pains simvastatin Allergy (Unknown, Verified 04/06/24 09:20) myalgia trazodone Adverse Reaction (Unknown, Verified 04/06/24 09:20) headaches, weakness Tobacco use date assessed: 12/04/23 Dental Screening Dental Screen Date: 07/30/23 [facility] Medical History (Updated 01/09/24 @ 13:34 by Ellie Sims 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 Daughter No problems noted. Social History Household Members: None Housing: Apartment Alcohol intake: never Patient Tobacco Use Status: Never used Tobacco e-Cigarette/Vaping Use: Never Used Second Hand Smoke Exposure: No service: No Current occupational status: disabled Cognitive needs: No Hearing needs: No Vision needs: No Questionnaire Thrive Questionnaire Date Thrive assessed: 07/30/23 Are you currently unemployed and looking for a job?: No JACOBO-7 AMB Questionnaire JACOBO-7 Date JACOBO - 7 assessed: 07/30/23 Source: Developed by Drs. Christiano Cuellar, Fabiola Tobin, Adalberto Patel and colleagues, with an educational raudel from [employer]. Physical exam (Primary Care) Tobacco/Smoking Status: Tobacco use Status Tobacco use date assessed 12/04/23 12/04/23 10:26 Patient Tobacco Use Status Never used Tobacco 05/16/24 10:26 e-Cigarette/Vaping Use Never Used 12/04/23 10:26 Thrive Assessment: Date of Thrive Assessment Date Thrive assessed 07/30/23 12/04/23 10:26 Coding
--- NOTE | 2024-04-13 08:40 | A.OFFVIS_ITS ---
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: No Accompanied by: Self / Same As Patient Allergies morphine [MORPHINE] Allergy (Intermediate, Verified 04/13/24 09:17) HYPOTENSION, abdominal pains atorvastatin Allergy (Unknown, Verified 04/13/24 09:17) headaches,abdominal pains simvastatin Allergy (Unknown, Verified 04/13/24 09:17) myalgia trazodone Adverse Reaction (Unknown, Verified 04/13/24 09:17) headaches, weakness Medication List - Last Reconciled 04/13/24 by Seferino Azar MD calcium citrate 500 mg (2 x 250 mg calcium) PO DAILY 90 days cholecalciferol (vitamin D3) 125 mcg PO DAILY 90 days ibuprofen 400 mg PO Q6H PRN omega-3 fatty acids 1,000 mg PO DAILY NS omeprazole 20 mg PO DAILY 90 days polyethylene glycol 3350 (Miralax) 17 grams PO DAILY romosozumab-aqqg (Evenity) 210 mg (2.34 mL) subcut .qmonthly zolpidem 10 mg PO BEDTIME PRN 30 days Do you need a note to return to daycare/school/sports/work: No HPI [facility] HPI Details Patient comes in today for her Medicare Annual Wellness Exam AND follow up visit States that she feels okay She denies any headaches or dizziness Denies any chest pains, no SOB No nausea/vomiting, no abdominal pain No change in bowel habits noted She had her follow up labs done yesterday - to discuss her results --- [place] of care was reviewed and updated today Patient has a healthcare proxy in place and on file; they were provided with a MOLST form and instructed to complete these as soon as possible IPPE/AWV: c/o of Annual Wellness Visit, subsequent visit. Medical / Social History Reviewed Past Medical History Yes . [place] of Care / Care Team list updated Yes . Surgical/Hospitalization History Yes . Current Medications (including OTC and supplements) Yes . Family History Yes . Tobacco Control form Yes . AUDIT-C (Alcohol use) form Yes . Illicit drug use in Social History Yes . Current diagnosis of depression? No Appropriate PHQ2/PHQ9 completed Yes . Data entered by [employer] and reviewed by provider Home Safety Throw rugs? No Grab bars? No Raised toilet seats? No Working smoke detectors? Yes Working carbon monoxide detectors? Yes Data entered by [employer] and reviewed by provider Activities of Daily Living (ADLs) Difficulty bathing or showering? No Difficulty dressing? No Difficulty using the toilet? No Difficulty getting in and out of bed? No Difficulty walking? No Receives help from another person with any of the above tasks? No Instrumental Activities of Daily Living (IADLs) Uses the telephone without help Gets to places out of walking distance without help Goes shopping for groceries without help Prepares own meals without help Does own minor home maintenance without help Does own laundry without help Does own housework without help Manages own money without help Currently takes medications? Yes Takes medication without help End-of-Life Planning Discussed advance directive Yes Advance directive on file Discussed wishes expressed in advance directive agreed to following patient's wishes Fall Risk: Fall History Have you had any falls with injury in the past year? No . Have you had two or more falls in the past year? No . Fall Risk Assessment: No falls in the past year . HRA filled out by the patient, reviewed by Provider and scanned. [facility] Medical History Tubular adenoma of colon Diverticulosis Fever Anxiety Insomnia Postherpetic neuralgia Varicose veins of leg with pain Primary osteoarthritis, left shoulder Constipation GERD (gastroesophageal reflux disease) Vitamin D deficiency Osteoporosis Pure hypercholesterolemia Surgical History History of colonoscopy Varicose vein of leg History of excision of mass History of total hysterectomy Family History Father Medical history unknown Mother Medical history unknown Son No problems noted. Daughter No problems noted. Social History Household Members: None Housing: Apartment Alcohol intake: never Patient Tobacco Use Status: Never used Tobacco e-Cigarette/Vaping Use: Never Used Second Hand Smoke Exposure: No service: No Current occupational status: disabled Cognitive needs: No Hearing needs: No Vision needs: No Questionnaire Medicare Wellness Checkup [age] What gender do you identify with?: female During the past 4 weeks, how much have you been bothered by emotional problems such as feeling anxious, depressed, irritable, sad or downhearted, and blue?: not at all During the past 4 weeks, has your physical & emotional health limited your social activities with family, friends, neighbors, or groups?: not at all During the past 4 weeks, how much bodily pain have you generally had?: no pain During the past 4 weeks, was someone available to help you if you needed & wanted help?: no, not at all During the past 4 weeks, what was the hardest physical activity you could do for at least 2 minutes?: moderate Can you get to places out of walking distance without help? (For eg., can you travel alone on buses, taxis or drive your car?): Yes Can you go shopping for groceries or clothes without someone's help?: Yes Can you prepare your own meals?: Yes Can you do your housework without help?: Yes Because of any health problems, do you need the help of another person with your personal care needs such as eating, bathing, dressing or getting around the house?: No Can you handle your own money without help?: Yes During the past 4 weeks, how would you rate your health in general?: good During the past 4 weeks how have things been going for you?: pretty well Are you having difficulties driving your car?: no Do you always fasten your seat belt when you are in a car?: yes, usually During past 4 weeks, have you been bothered by the following: never: Falling or dizzy when standing up, Sexual problems?, Trouble eating well?, Teeth or denture problems?, Problems using the telephone? and Tiredness or fatigue? Have you fallen 2 or more times in the past year?: No Are you afraid of falling?: No Are you a smoker?: no During the past 4 weeks, how many drinks of wine, beer, or other alcoholic beverages did you have?: no alcohol at all Do you exercise for about 20 minutes 3 or more times a week?: yes, most of the time Have you been given information to help with the following?: no: Hazards in your house that might hurt you? and no: Keeping track of your medications? How often do you have trouble taking medicines the way you have been told to take them?: I always take medicine as prescribed How confident are you that you can control & manage most of your health problems?: somewhat confident What is your race?: or origin or descent Mini Mental State Exam (MMSE) Orientation What is the (year) (season) (date) (day) (month)?: year, season, date, day and month Where are we (state) (county) (town or city) (hospital) (floor)?: state, county, town or city, hospital/clinic and floor Score Score: 10 Activity of Daily Living Bathing - sponge bath, tub bath or shower: receives no assistance (gets in/out by self, if usual bathing means Dressing - getting clothes from closets & drawers, including inner/outer garments & fasteners.: gets clothes & gets completely dressed without help Toileting - going to the 'toilet room' for urine/bowel elimination & cleaning self/arranging clothes: goes to toilet room, cleans self, arranges clothes without help Transfer: moves in & out of bed and chair without help (may use support object) Continence: controls urination/bowel movements completely by self Feeding: feeds self without help Total Score: 0 Information obtained from: patient Using telephone: independent Traveling: independent Shopping: independent Preparing meals: independent Housework: independent Taking medicine: independent Managing money: independent PHQ-9 Over the last 2 weeks, how often have you been bothered by any of the following problems? 1. Little interest or pleasure in doing things: not at all 2. Feeling down, depressed, or hopeless: not at all 3. Trouble falling or staying asleep, or sleeping too much: not at all 4. Feeling tired or having little energy: not at all 5. Poor appetite or overeating: not at all 6. Feeling bad about yourself - or that you are a failure or have let yourself or your family down: not at all 7. Trouble concentrating on things, such as reading the newspaper or watching television: not at all 8. Moving or speaking so slowly that other people could have noticed. Or the opposite - being so fidgety or restless that you have been moving around a lot more than usual: not at all 9. Thoughts that you would be better off or of hurting yourself in some way: not at all Total score: 0 Depression Screening Interpretation: Negative Depression Screening Done: Yes 88474 - PHQ-9 Billing: Yes Source: Developed by Drs. Christiano Cuellar, Adalberto Trujillo and colleagues, with an educational raudel from [employer]. PHQ-2/PHQ-9 PHQ-2 Over the last 2 weeks, how often have you been bothered by any of the following problems? 1. Little interest or pleasure in doing things: not at all 2. Feeling down, depressed, or hopeless: not at all Total score: 0 If score is 3 or greater, continue 3. Trouble falling or staying asleep, or sleeping too much: not at all 4. Feeling tired or having little energy: not at all 5. Poor appetite or overeating: not at all 6. Feeling bad about yourself - or that you are a failure or have let yourself o r your family down: not at all 7. Trouble concentrating on things, such as reading the newspaper or watching television: not at all 8. Moving or speaking so slowly that other people could have noticed. Or the opposite - being so fidgety or restless that you have been moving around a lot more than usual: not at all 9. Thoughts that you would be better off or of hurting yourself in some way: not at all Total score: 0 0-4 None-Minimal, 5-9 Mild, 10-14 Moderate, 15-19 Moderately Severe, 20-27 Severe Source: Developed by Drs. Christiano Cuellar, Adalberto Trujillo and colleagues, with an educational raudel from [employer]. Thrive Questionnaire Date Thrive assessed: 04/13/24 I am a: Patient What is your living situation today?: I have a steady place to live Within the past 12 months, did the food you bought not last and you didn't have the money to get more?: Never true Within the past 12 months, did you worry whether your food would run out before you got money to buy more?: Never true Do you have trouble paying for medicines?: No Do you have trouble getting transportation to medical appointments?: No Do you have trouble paying your heating and electricity bill?: No Do you have trouble taking care of your child, family member or friend?: No Do you have trouble with day-to-day activities such as bathing, preparing meals, shopping, managing finances, etc.?: No Are you currently unemployed and looking for a job?: No Are you interested in more education?: No Please select the resources that you would like help with: None Currently or been in a relationship where the following occur: No concerns reported THRIVE Score: 0 JACOBO-7 AMB Questionnaire JACOBO-7 Date JACOBO - 7 assessed: 04/13/24 Feeling nervous, anxious, or on edge: 0 = Not at all Not being able to stop or control worryin = Not at all Worrying too much about different things: 0 = Not at all Trouble relaxin = Not at all Being so restless that it is hard to sit still: 0 = Not at all Becoming easily annoyed or irritable: 0 = Not at all Feeling afraid as if something awful might happen: 0 = Not at all Total JACOBO-7 score (0-4 normal; 5-9 mild; 10-14 moderate; 15-21 severe): 0 Source: Developed by Drs. Christiano Cuellar, Fabiola Tobin, Adalberto Patel and colleagues, with an educational raudel from [employer]. Review of Systems Const Reports difficulty sleeping (Rx helps), Denies fatigue, Denies fever(s) and Denies headache(s) ENT Denies dysphagia, Denies dizziness, Denies otalgia, Denies headache(s), Denies odynophagia and Denies sore throat Card Denies chest pain, Denies palpitations and Denies dyspnea Resp Denies chest congestion, Denies cough and Denies dyspnea GI Denies abdominal pain, Denies constipation, Denies dysphagia, Denies heartburn, Denies diarrhea, Denies nausea, Denies odynophagia and Denies vomiting Denies difficulty voiding, Denies nocturia, Denies dysuria and Denies urinary urgency Musc Reports arthralgias (on and off) Skin/Breast Denies rash Neuro Denies dizziness and Denies headache(s) Endo Denies fatigue and Denies palpitations Physical Exam Vital Signs: Last Vital Signs Pulse 64 04/13/24 08:31 BP 128/80 04/13/24 08:31 Pulse Ox 99 04/13/24 08:31 Oxygen Delivery Method Room Air 04/13/24 08:31 BMI result Body Mass Index 18.8 IPPE/AWV: Balance Romberg Yes . Tandem walk Yes . Walk and Turn Yes . Rise from sit to stand Yes . Vision Corrective lens No Vision screen pass Hearing Whisper test pass . Urinary incont. no. EKG Not clinically necessary. Const General: no acute distress and alert HEENT Ears: TM's normal bilaterally and EAC's normal Throat: Yes posterior oropharynx normal and Yes tonsils normal (no TP congestion noted) Neck Neck: Yes no lymphadenopathy and Yes supple Thyroid: Thyroid normal Resp Auscultation: clear to auscultation bilaterally, no rales and no wheezes Cardio Rate: regular rate Rhythm: regular rhythm Heart sounds: no murmurs GI Palpation (GI): Soft to palpation and nontender Auscultation: normal bowel sounds General: Yes no CVA tenderness Back/Spine/Pelvis Back: no CVA tenderness Thoracic/Lumbar Spine: No lumbar spinal tenderness Skin Rashes: no rashes Neuro Cognition (Neuro): normal cognition Extrem General: Yes no clubbing, cyanosis or edema Results Reviewed Results Reviewed: Laboratory Tests 04/12/24 04/12/24 09:23 09:25 WBC 4.0 L Hgb 12.1 Hct 37.5 Plt Count 204 Sodium 144 Potassium 4.2 Creatinine 0.67 Estimated GFR > 60 Fasting Glucose 93 Calcium 9.3 D AST 22 ALT 12 Triglycerides 85 Cholesterol 235 H LDL Cholesterol, Calc 133 H HDL Cholesterol 85 25-OH Vitamin D Total 61.9 TSH 1.69 Ur Specific [place] 1.015 Urine Protein Negative Urine Glucose (UA) Negative Urine Blood Small (1+) H Urine Nitrite Negative Ur Leukocyte Esterase Negative Assessment & Plan Assessment & Plan (1) Medicare annual wellness visit, subsequent: Code(s): Z00.00 - Encounter for general adult medical examination without abnormal findings Plan: PONCE updated HRA form discussed and completed with patient; form will be scanned into patient's chart (2) Pure hypercholesterolemia: Comment: Has been unable to tolerate STATINS in the past Code(s): E78.00 - Pure hypercholesterolemia, unspecified Plan: Results of her labs done yesterday reviewed and discussed with patient Reinforced low cholesterol diet - patient has been unable to tolerate statins in the past and will continue with diet modification We tried to start her on Repatha injections for her high cholesterol but she states that her insurance will only cover part of the cost of the Rx and she is unable to afford paying [id number] for the Rx Will recheck her labs and fasting lipids in 4 months for follow up (3) Osteoporosis: Code(s): M81.0 - Age-related osteoporosis without current pathological fracture Qualifiers: Osteoporosis type: age-related Presence of current pathological fracture: without current pathological fracture Qualified Code(s): M81.0 - Age- related osteoporosis without current pathological fracture Plan: BMD done a few months ago revealed (+) osteoporosis Continue Evenity 210 mg SQ once a month She is reminded to continue taking her oral Calcium and Vitamin D supplements daily Follow up with endocrinology as scheduled (4) Vitamin D deficiency: Code(s): E55.9 - Vitamin D deficiency, unspecified Plan: Corrected - continue Vitamin D 5000 units daily (5) GERD (gastroesophageal reflux disease): Code(s): K21.9 - Gastro-esophageal reflux disease without esophagitis Qualifiers: Esophagitis presence: without esophagitis Qualified Code(s): K21.9 - Gastro-esophageal reflux disease without esophagitis Plan: Dietary restrictions reinforced Continue Omeprazole 20 mg QD PRN (6) Constipation: Code(s): K59.00 - Constipation, unspecified Qualifiers: Constipation type: unspecified constipation type Qualified Code(s): K59.00 - Constipation, unspecified Plan: Improved - encouraged to continue increased oral fluids and dietary fiber Continue Miralax 17 gm QD (7) Primary osteoarthritis, left shoulder: Code(s): M19.012 - Primary osteoarthritis, left shoulder Plan: X-rays of the left shoulder done a few years ago showed (+) mild OA changes in the AC joint She is advised to continue with regular shoulder exercises to help manage pain more effectively - patient states that shoulder has not been bothering her as much lately Will consider physical therapy and/ or orthopedics referral if her shoulder symptoms increase or worsen (8) Varicose veins of leg with pain: Code(s): I83.819 - Varicose veins of unspecified lower extremity with pain Qualifiers: Laterality: unspecified laterality Qualified Code(s): I83.819 - Varicose veins of unspecified lower extremity with pain Plan: Follow up with vascular surgery (Dr. Glenn Anderson) as scheduled (9) Postherpetic neuralgia: Code(s): B02.29 - Other postherpetic nervous system involvement Plan: Symptoms have improved significantly lately and does not require any Rx or Tx (10) Insomnia: Code(s): G47.00 - Insomnia, unspecified Qualifiers: Insomnia type: unspecified Qualified Code(s): G47.00 - Insomnia, unspecified Plan: Sleep hygiene reinforced Continue Zolpidem 10 mg once a day at bedtime as needed Plan Follow up in 4 months Orders: Orders Complete Blood Count Auto Diff 4 Months D64.9 - Anemia, unspecified Comprehensive Point Clear. Panel Fast 4 Months E78.00 - Pure hypercholesterolemia, unspecified TSH reflex Free T4 4 Months E78.00 - Pure hypercholesterolemia, unspecified Vitamin D 25-OH Total 4 Months E55.9 - Vitamin D deficiency, unspecified Lipid Panel 4 Months E78.00 - Pure hypercholesterolemia, unspecified UA CC w/rflx Micro + Cult 4 Months R30.0 - Dysuria Medications: Refilled omega-3 fatty acids 1,000 mg PO DAILY 90 caps 3RF Hyperlipidemia NS E78.00 - Pure hypercholesterolemia, unspecified Quality Reporting (2019) Depression/Bipolar (159/160/161/177) PHQ-9: Total score: 0 Coding Level of Care Code Medicare Subsequent (G0439) Est Pt Level 4 (82286) Diagnoses Medicare annual wellness visit, subsequent Z00.00 Pure hypercholesterolemia E78.00 Age-related osteoporosis without current pathological fracture M81.0 Osteoporosis type: age-related Presence of current pathological fracture: without current pathological fracture Vitamin D deficiency E55.9 Gastroesophageal reflux disease without esophagitis K21.9 Esophagitis presence: without esophagitis Constipation, unspecified constipation type K59.00 Constipation type: unspecified constipation type Primary osteoarthritis, left shoulder M19.012 Varicose veins of lower extremity with pain, unspecified laterality I83.819 Laterality: unspecified laterality Postherpetic neuralgia B02.29 Insomnia, unspecified type G47.00 Insomnia type: unspecified
== END 2024-04-13 09:44 | disposition home or self-care (01) ==
PROVIDERS: PCP Internal Medicine; Visit Provider Internal Medicine
DX: Z00.00 Encounter for general adult medical examination without abnormal findings (principal); E78.00 Pure hypercholesterolemia, unspecified; M81.0 Age-related osteoporosis without current pathological fracture; E55.9 Vitamin D deficiency, unspecified; K21.9 Gastro-esophageal reflux disease without esophagitis; K59.00 Constipation, unspecified; M19.012 Primary osteoarthritis, left shoulder; I83.819 Varicose veins of unspecified lower extremity with pain; B02.29 Other postherpetic nervous system involvement; G47.00 Insomnia, unspecified

== ENCOUNTER → 2024-04-13 08:23 | Outpatient (BNVA) | payer MEDICARE, SELFPAY | PROVIDERS: PCP Internal Medicine; Visit Provider Internal Medicine | DX: Z00.01 Encounter for general adult medical examination with abnormal findings (principal); E78.00 Pure hypercholesterolemia, unspecified; M81.0 Age-related osteoporosis without current pathological fracture; E55.9 Vitamin D deficiency, unspecified; K21.9 Gastro-esophageal reflux disease without esophagitis; K59.00 Constipation, unspecified; M19.012 Primary osteoarthritis, left shoulder | CPT/HCPCS: 99212 ==

== ENCOUNTER 2024-05-04 09:20 | Outpatient (AMB) | payer MEDICARE, SELFPAY ==
--- NOTE | 2024-05-04 09:43 | AM.OFFVISNUR ---
Intake Visit Reasons: Evenity #3 Allergies morphine [MORPHINE] Allergy (Intermediate, Verified 04/13/24 09:17) HYPOTENSION, abdominal pains atorvastatin Allergy (Unknown, Verified 04/13/24 09:17) headaches,abdominal pains simvastatin Allergy (Unknown, Verified 04/13/24 09:17) myalgia trazodone Adverse Reaction (Unknown, Verified 04/13/24 09:17) headaches, weakness Office Meds romosozumab-aqqg 210 mg/2.34 mL(105 mg/1.17 mL x2)subcutaneous syringe Performing Provider: Christiano Montenegro MD Performing Location: [facility] Endocrinology Administered by: Stephanie Packer RN on 05/04/24 09:43 Dose Route Admin Location Dispensed Lot Number Expiration Date NDC Change Over 210 mg subcut bilateral upper arms 2.34 mL 01/17/25 28505-462-78 [facility] Comments: Visit interpreted by Anna Hernandez LMT. Consent form signed. Pt tolerated injection well. Pt did endorse having some static like sensation across her whole body that started 2 days after her injection and lasted for 2-3 days. Pt denied any visible rashes, any shortness of breath or swelling in throat/around mouth. Pt advised to monitor for rashes and oumar the areas with a pen if there is any rash/swelling or redness. Patient advised to call 911 with any signs or symptoms of anaphylaxis. Assessment & Plan Assessment & Plan Orders: Orders AMB Romosozumab Injection Patient Supplied Today M81.0 - Age-related osteoporosis without current pathological fracture Medications: New romosozumab-aqqg 210 mg (2.34 mL) subcut ONCE 2.34 mL 0RF M81.0 - Age-related osteoporosis without current pathological fracture
== END 2024-05-04 09:42 | disposition home or self-care (01) ==
PROVIDERS: PCP Internal Medicine
DX: M81.0 Age-related osteoporosis without current pathological fracture (principal)

== ENCOUNTER → 2024-05-04 09:20 | Outpatient (BNVA) | payer MEDICARE, SELFPAY | PROVIDERS: PCP Internal Medicine | DX: M81.0 Age-related osteoporosis without current pathological fracture (principal) | CPT/HCPCS: 96372; J3111 ==

== ENCOUNTER 2024-05-12 10:53 | Outpatient (AMB) | payer MEDICARE, SELFPAY ==
[2024-05-12 11:03] VITALS: BP 110/70; PULSE 85; O2SAT 97; BMI 19.3
--- NOTE | 2024-05-12 11:03 | A.OFFPC_ITS ---
Vital Signs 05/12/24 11:03 Height 5 ft 3.5 in Weight 110 lb 8 oz BMI 19.3 BP 110/70 Blood Pressure Location Lt brachial Position Sitting Pulse 85 Pulse Source Pulse Oximeter Pulse Oximetry (%) 97 Oxygen Delivery Method Room Air Intake Visit Reasons: dizzines Crap Game Box Person Required: No Accompanied by: Self / Same As Patient Allergies morphine [MORPHINE] Allergy (Intermediate, Verified 05/12/24 11:44) HYPOTENSION, abdominal pains atorvastatin Allergy (Unknown, Verified 05/12/24 11:44) headaches,abdominal pains simvastatin Allergy (Unknown, Verified 05/12/24 11:44) myalgia trazodone Adverse Reaction (Unknown, Verified 05/12/24 11:44) headaches, weakness Medication List - Last Reconciled 05/12/24 by Seferino Azar MD calcium citrate 500 mg (2 x 250 mg calcium) PO DAILY 90 days cholecalciferol (vitamin D3) 125 mcg PO DAILY 90 days ibuprofen 400 mg PO Q6H PRN omega-3 fatty acids 1,000 mg PO DAILY NS omeprazole 20 mg PO DAILY 90 days polyethylene glycol 3350 (Miralax) 17 grams PO DAILY romosozumab-aqqg (Evenity) 210 mg (2.34 mL) subcut .qmonthly zolpidem 10 mg PO BEDTIME PRN 30 days Tobacco use date assessed: 05/12/24 Fall risk assessment: No Falls in past year Last assessed Fall Risk: 05/12/24 Dental Screening Dental Screen Date: 05/12/24 Did you have a dental visit in the last 12 months?: No Did you have a dental problem in the last 6 months where you did not have access to dental care?: No Was dental information given to patient?: No HPI dizzines HPI Details Patient comes in today for further evaluation of her recent symptoms of dizziness, headaches, ear congestion and hot flashes, which patient feels started after she received her 3rd injection of Evenity Is concerned that her symptoms are side effects of the medication and states th at she contacted Endocrinology regarding this and she was advised to see her primary care to verify that the symptoms are side effects of the medications and not from other possible causes Patient states that she did not have the symptoms after her first 2 doses of Evenity She also reports experiencing some joint pains as well as on and off tingling and numbness, generalized weakness, edema and muscle spasms recently She denies any fever or sore throat Denies any chest pains, no increased shortness of breath No nausea/vomiting, no abdominal pain No change in bowel habits noted [facility] Medical History Tubular adenoma of colon Diverticulosis Fever Anxiety Insomnia Postherpetic neuralgia Varicose veins of leg with pain Primary osteoarthritis, left shoulder Constipation GERD (gastroesophageal reflux disease) Vitamin D deficiency Osteoporosis Pure hypercholesterolemia Surgical History History of colonoscopy Varicose vein of leg History of excision of mass History of total hysterectomy Family History Father Medical history unknown Mother Medical history unknown Son No problems noted. Daughter No problems noted. Social History Household Members: None Housing: Apartment Alcohol intake: never Patient Tobacco Use Status: Never used Tobacco e-Cigarette/Vaping Use: Never Used Second Hand Smoke Exposure: No service: No Current occupational status: disabled Cognitive needs: No Hearing needs: No Vision needs: No Questionnaire PHQ-9 Over the last 2 weeks, how often have you been bothered by any of the following problems? 1. Little interest or pleasure in doing things: not at all 2. Feeling down, depressed, or hopeless: not at all 3. Trouble falling or staying asleep, or sleeping too much: not at all 4. Feeling tired or having little energy: not at all 5. Poor appetite or overeating: not at all 6. Feeling bad about yourself - or that you are a failure or have let yourself or your family down: not at all 7. Trouble concentrating on things, such as reading the newspaper or watching television: not at all 8. Moving or speaking so slowly that other people could have noticed. Or the opposite - being so fidgety or restless that you have been moving around a lot more than usual: not at all 9. Thoughts that you would be better off or of hurting yourself in some way: not at all Total score: 0 Depression Screening Interpretation: Negative Depression Screening Done: Yes 50095 - PHQ-9 Billing: Yes Source: Developed by Fabiola Harmon, Adalberto Paetl and colleagues, with an educational raudel from [employer]. Thrive Questionnaire Date Thrive assessed: 05/12/24 I am a: Patient What is your living situation today?: I have a steady place to live Within the past 12 months, did the food you bought not last and you didn't have the money to get more?: Never true Within the past 12 months, did you worry whether your food would run out before you got money to buy more?: Never true Do you have trouble paying for medicines?: No Do you have trouble getting transportation to medical appointments?: No Do you have trouble paying your heating and electricity bill?: No Do you have trouble taking care of your child, family member or friend?: No Do you have trouble with day-to-day activities such as bathing, preparing meals, shopping, managing finances, etc.?: No Are you currently unemployed and looking for a job?: No Are you interested in more education?: No Please select the resources that you would like help with: None Currently or been in a relationship where the following occur: No concerns reported THRIVE Score: 0 AUDIT C Alcohol Use Questionnaire (AUDIT-C) 1. How often do you have a drink containing alcohol?: Never 3. How often do you have six or more drinks on one occasion?: Never Total Score: 0 Score Reviewed/Action Taken: Yes JACOBO-7 AMB Questionnaire JACOBO-7 Date JACOBO - 7 assessed: 05/12/24 Feeling nervous, anxious, or on edge: 0 = Not at all Not being able to stop or control worryin = Not at all Worrying too much about different things: 0 = Not at all Trouble relaxin = Not at all Being so restless that it is hard to sit still: 0 = Not at all Becoming easily annoyed or irritable: 0 = Not at all Feeling afraid as if something awful might happen: 0 = Not at all Total JACOBO-7 score (0-4 normal; 5-9 mild; 10-14 moderate; 15-21 severe): 0 Source: Developed by Fabiola Harmon Kurt Kroenke and colleagues, with an educational raudel from [employer]. Review of Systems Const Reports body aches, Denies chills, Reports fatigue, Denies fever(s) and Reports headache(s) (on and off) ENT Denies dysphagia, Reports dizziness (on and off), Denies otalgia (but (+) ear congestion), Reports headache(s) (on and off), Denies neck pain, Denies odynophagia and Denies sore throat Card Denies chest pain, Denies irregular heart rhythm, Denies palpitations and Denies dyspnea Resp Denies chest congestion, Denies cough and Denies dyspnea GI Denies abdominal pain, Denies constipation, Denies dysphagia, Denies diarrhea, Denies nausea, Denies odynophagia and Denies vomiting Denies nocturia, Denies dysuria and Denies urinary urgency Musc Denies back pain, Reports myalgias, Reports arthralgias, Reports muscle cramps, Reports muscle weakness and Denies neck pain Skin/Breast Denies rash Neuro Reports dizziness (on and off) and Reports headache(s) (on and off) Endo Reports fatigue and Denies palpitations Physical exam (Primary Care) Vital Signs: Last Vital Signs Pulse 85 05/12/24 11:03 BP 110/70 05/12/24 11:03 Pulse Ox 97 05/12/24 11:03 Oxygen Delivery Method Room Air 05/12/24 11:03 BMI result Body Mass Index 19.3 Tobacco/Smoking Status: Tobacco use Status Tobacco use date assessed 05/12/24 05/12/24 11:09 Patient Tobacco Use Status Never used Tobacco 05/12/24 11:09 e-Cigarette/Vaping Use Never Used 05/12/24 11:09 PHQ-9: PHQ-9 Score PHQ-9: Total score 0 05/12/24 11:46 Depression Screening Interpretation: Negative Thrive Assessment: Date of Thrive Assessment Date Thrive assessed 05/12/24 05/12/24 11:09 Currently or been in a relationship where the following occur: No concerns reported Const General: no acute distress and alert HENMT Ears: TM's normal bilaterally and EAC's normal Throat: Yes posterior oropharynx normal and Yes tonsils normal (no TP congestion noted) Neck Neck: Yes no lymphadenopathy and Yes supple Thyroid: Thyroid normal Resp Auscultation: clear to auscultation bilaterally, no rales and no wheezes Cardio Rate: regular rate Rhythm: regular rhythm Heart sounds: no murmurs GI Palpation (GI): Soft to palpation and nontender Auscultation: normal bowel sounds General: Yes no CVA tenderness Back/Spine/Pelvis Back: no CVA tenderness Skin Rashes: no rashes Extrem General: Yes no clubbing, cyanosis or edema Coding Level of Care Code Est Pt Level 3 (78891) Diagnoses Respiratory symptoms R09.89 Hot flashes R23.2 Paresthesia R20.2 Arthralgia, unspecified joint M25.50 Joint pain location: unspecified Assessment & Plan Assessment & Plan (1) Respiratory symptoms: Code(s): R09.89 - Other specified symptoms and signs involving the circulatory and respiratory systems Category: Medical (2) Hot flashes: Code(s): R23.2 - Flushing Category: Medical (3) Paresthesia: Code(s): R20.2 - Paresthesia of skin Category: Medical (4) Arthralgia: Code(s): M25.50 - Pain in unspecified joint Category: Medical Qualifiers: Joint pain location: unspecified Qualified Code(s): M25.50 - Pain in unspecified joint Plan Have advised patient that her exam today does not reveal any particular focus or source of her recent symptoms Advised that it is possible that her symptoms are possible side effects of Evenity but as she did not experience them after her first 2 doses, they may not necessarily be due to her medication However, if she were to experience them again after her next dose, then she can consider having her medication changed Follow up as scheduled in July 2024
== END 2024-05-12 12:49 | disposition home or self-care (01) ==
PROVIDERS: PCP Internal Medicine; Visit Provider Internal Medicine
DX: R09.89 Other specified symptoms and signs involving the circulatory and respiratory systems (principal); R23.2 Flushing; R20.2 Paresthesia of skin; M25.50 Pain in unspecified joint

== ENCOUNTER → 2024-05-12 10:53 | Outpatient (BNVA) | payer MEDICARE, SELFPAY | PROVIDERS: PCP Internal Medicine; Visit Provider Internal Medicine | DX: R09.89 Other specified symptoms and signs involving the circulatory and respiratory systems (principal); R23.2 Flushing; R20.2 Paresthesia of skin; M25.50 Pain in unspecified joint | CPT/HCPCS: 96127; 99212 ==

== ENCOUNTER 2024-06-01 08:17 | Outpatient (AMB) | payer MEDICARE, SELFPAY ==
--- NOTE | 2024-06-01 08:35 | AM.OFFVISNUR ---
Intake Visit Reasons: Evenity #4 Allergies morphine [MORPHINE] Allergy (Intermediate, Verified 05/12/24 11:44) HYPOTENSION, abdominal pains atorvastatin Allergy (Unknown, Verified 05/12/24 11:44) headaches,abdominal pains simvastatin Allergy (Unknown, Verified 05/12/24 11:44) myalgia trazodone Adverse Reaction (Unknown, Verified 05/12/24 11:44) headaches, weakness Office Meds romosozumab-aqqg 210 mg/2.34 mL(105 mg/1.17 mL x2)subcutaneous syringe Performing Provider: Christiano Montenegro MD Performing Location: [facility] [place] Endocrinology Administered by: Stephanie Packer RN on 06/01/24 08:35 Dose Route Admin Location Dispensed Lot Number Expiration Date ND Guest Relations Officer 210 mg subcut bilateral upper arms 2.34 mL [id number] 04/19/26 05947-725-61 [facility] Comments: Patient signed consent form. Pt tolerated injection well. Please see previous workloads regarding questionable evenity reaction. Pt was evaluated by PCP. Pt aware to watch for return of symptoms or if she were to develop new symptoms to call our office. Assessment & Plan Assessment & Plan Orders: Orders AMB Romosozumab Injection Patient Supplied Today M81.0 - Age-related osteoporosis without current pathological fracture Medications: New romosozumab-aqqg 210 mg (2.34 mL) subcut ONCE 2.34 mL 0RF M81.0 - Age-related osteoporosis without current pathological fracture
== END 2024-06-01 08:34 | disposition home or self-care (01) ==
PROVIDERS: PCP Internal Medicine
DX: M81.0 Age-related osteoporosis without current pathological fracture (principal)

== ENCOUNTER → 2024-06-01 08:17 | Outpatient (BNVA) | payer MEDICARE, SELFPAY | PROVIDERS: PCP Internal Medicine | DX: M81.0 Age-related osteoporosis without current pathological fracture (principal) | CPT/HCPCS: 96372; J3111 ==

== ENCOUNTER 2024-07-05 08:45 | Outpatient (AMB) | payer MEDICARE, SELFPAY ==
--- NOTE | 2024-07-05 09:05 | AM.OFFVISNUR ---
Intake Visit Reasons: Evenity #5 Allergies morphine [MORPHINE] Allergy (Intermediate, Verified 05/12/24 11:44) HYPOTENSION, abdominal pains atorvastatin Allergy (Unknown, Verified 05/12/24 11:44) headaches,abdominal pains simvastatin Allergy (Unknown, Verified 05/12/24 11:44) myalgia trazodone Adverse Reaction (Unknown, Verified 05/12/24 11:44) headaches, weakness Office Meds romosozumab-aqqg 210 mg/2.34 mL(105 mg/1.17 mL x2)subcutaneous syringe Performing Provider: Christiano Montenegro MD Performing Location: [facility] [place] Administered by: Stephanie Packer RN on 07/05/24 09:05 Dose Route Admin Location Dispensed Lot Number Expiration Date NDC Reporting Specialist 210 mg subcut bilateral upper arms 2.34 mL [id number] 10/18/26 92240-705-42 [facility] Comments: Visit interpreted by Wojciech Seymour LMT, MA. Pt reported redness/cracking and itching to left hand over pinky and ring finger. Per pt has been on and off with evenity injections. Area evaluated by Dr. Montenegro. Pt denies any SOB, throat itchiness or tightness. Pt advised to use claritin before injection as well as hydrocortisone cream. Pt adv ised to call if the area worsens, does not improve. Pt aware to seek ER for eval with any severe SOB, throat tightness or itchiness. Assessment & Plan Assessment & Plan Orders: Orders AMB Romosozumab Injection Patient Supplied Today M81.0 - Age-related osteoporosis without current pathological fracture Medications: New romosozumab-aqqg 210 mg (2.34 mL) subcut ONCE 2.34 mL 0RF M81.0 - Age-related osteoporosis without current pathological fracture
== END 2024-07-05 09:04 | disposition home or self-care (01) ==
PROVIDERS: PCP Internal Medicine
DX: M81.0 Age-related osteoporosis without current pathological fracture (principal)

== ENCOUNTER → 2024-07-05 08:45 | Outpatient (BNVA) | payer MEDICARE, SELFPAY | PROVIDERS: PCP Internal Medicine | DX: M81.0 Age-related osteoporosis without current pathological fracture (principal) | CPT/HCPCS: 96372; J3111 ==

== ENCOUNTER 2024-08-16 08:27 | Outpatient (REF) | payer MEDICARE, SELFPAY ==
[2024-08-16 08:45] LABS: MANUAL DIFF FLAG NO
[2024-08-16 09:09] LABS: Basophils Percent Auto 0.6 % (0-2); Eosinophils Absolute Auto 0.1 X10*3/uL (0.0-0.4); Eosinophils Percent Auto 1.5 % (0-4); Hemoglobin 12.3 g/dl (12.0-16.0); Imm Gran Abs Auto 0.02 X10*3/uL (0.00-0.03); Imm Gran Pct Auto 0.4 % (0.0-0.4); Lymphocytes Absolute Auto 0.9 X10*3/uL (1.2-4.9); Lymphocytes Percent Auto 18.6 % (20-40); Mean Corpuscular HGB Conc 32.4 g/dl (31.0-35.0); Mean Corpuscular Hemoglobin 30.2 pg (27.0-33.0); Mean Corpuscular Volume 93.4 fL (80.0-98.0); Mean Platelet Volume 10.4 fL (9.4-12.3); Monocytes Absolute Auto 0.4 X10*3/uL (0.1-1.2); Monocytes Percent Auto 9.3 % (2-11); Neutrophils Absolute Auto 3.3 x10*3/uL (2.0-8.3); Neutrophils Percent Auto 69.6 % (45-73); Platelet Count 206 X10*3/uL (160-400); Red Blood Count 4.07 X10*6/uL (4.20-5.50); Red Cell Distribution Width 13.2 % (11.0-16.0); White Blood Count 4.7 X10*3/uL (4.8-10.8)
[2024-08-16 09:46] LABS: Alanine Aminotransferase 15 U/L (0-31); Albumin Level 4.3 g/dL (3.5-5.0); Alkaline Phosphatase 104 U/L (39-117); Anion Gap 8 (12-20); Aspartate Amino Transferase 29 U/L (5-31); Bilirubin Total 0.7 mg/dL (0.0-1.0); Blood Urea Nitrogen 15 mg/dL (9-16); Calcium 9.4 mg/dL (8.4-10.2); Carbon Dioxide 29 mmol/L (22-29); Chloride 107 mmol/L (96-108); Cholesterol 243 mg/dL (<200); Estimated Glomerular Filt Rate > 60; Glucose Fasting 94 mg/dL (60-99); HDL Cholesterol 87 mg/dL (>40); LDL Cholesterol Calculated 139 mg/dL (<100); Potassium 4.2 mmol/L (3.3-5.1); Sodium 140 mmol/L (135-145); Total Protein 7.5 g/dL (6.5-8.0); Triglycerides 87 mg/dL (<150)
[2024-08-16 09:49] LABS: Appearance Urine Clear; Color Urine Yellow; Glucose Urine UA Negative (Negative); Leukocyte Esterase Urine Negative (Negative); Nitrite Urine Negative (Negative); PH 6.5 (5.0-9.0); UMIC TRIGGER UACC YES; Urine Blood Trace (Negative); Urine Ketones Negative (Negative); Urine Protein Negative (Neg-Trace)
[2024-08-16 09:54] LABS: Bacteria Urine None Seen (None Seen); Hyaline Casts Urine 0-2 /LPF (0-2); Squamous Epithelial Cell Urine 0-2 /HPF (0-2); WBC Urine 0-5 /HPF (0-5)
[2024-08-16 10:05] LABS: TSH reflex Free T4 2.01 uIU/mL (0.32-4.0); Vitamin D 25-OH Total 73.3 ng/mL (>30)
== END 2024-08-16 08:28 | disposition home or self-care (01) ==
LOC: HO.LAB 08:27
PROVIDERS: PCP Internal Medicine; Visit Provider Internal Medicine
DX: D64.9 Anemia, unspecified (principal); E55.9 Vitamin D deficiency, unspecified; E78.00 Pure hypercholesterolemia, unspecified
CPT/HCPCS: 36415; 80053; 80061; 81001; 82306; 84443; 85025

== ENCOUNTER 2024-08-17 10:34 | Outpatient (AMB) | payer MEDICARE, SELFPAY ==
[2024-08-17 10:41] VITALS: BP 122/70; PULSE 88; O2SAT 95; BMI 19.5
--- NOTE | 2024-08-17 10:41 | A.OFFPC_ITS ---
Vital Signs 08/17/24 10:41 Height 5 ft 3.5 in Weight 112 lb BMI 19.5 BP 122/70 Blood Pressure Location Lt brachial Position Sitting Pulse 88 Pulse Source Pulse Oximeter Pulse Oximetry (%) 95 Oxygen Delivery Method Room Air Intake Visit Reasons: hyperlipidemia, osteoporosis, GERD Smooth Stucco Resurfacer Required: No Accompanied by: Self / Same As Patient Allergies morphine [MORPHINE] Allergy (Intermediate, Verified 08/17/24 11:19) HYPOTENSION, abdominal pains atorvastatin Allergy (Unknown, Verified 08/17/24 11:19) headaches,abdominal pains simvastatin Allergy (Unknown, Verified 08/17/24 11:19) myalgia trazodone Adverse Reaction (Unknown, Verified 08/17/24 11:19) headaches, weakness Medication List - Last Reconciled 08/17/24 by Seferino Azar MD calcium citrate 500 mg (2 x 250 mg calcium) PO DAILY 90 days cholecalciferol (vitamin D3) 125 mcg PO DAILY 90 days ibuprofen 400 mg PO Q6H PRN omega-3 fatty acids 1,000 mg PO DAILY NS omeprazole 20 mg PO DAILY 90 days polyethylene glycol 3350 (Miralax) 17 grams PO DAILY romosozumab-aqqg (Evenity) 210 mg (2.34 mL) subcut .qmonthly zolpidem 10 mg PO BEDTIME PRN 30 days Tobacco use date assessed: 08/17/24 Fall risk assessment: No Falls in past year Last assessed Fall Risk: 08/17/24 Dental Screening Dental Screen Date: 08/17/24 Did you have a dental visit in the last 12 months?: No Did you have a dental problem in the last 6 months where you did not have access to dental care?: No Was dental information given to patient?: No HPI hyperlipidemia, osteoporosis, GERD HPI Details Patient comes in today for her follow up visit States that she currently feels okay but recalls that she was sick with a cold for about 3 weeks a month or so ago She had increased nasal and sinus congestion back then but she denies any increased coughing or SOB She also denies experiencing any fever or sore throat at the time and was just taking some OTC Tylenol Cold and Flu PRN for symptomatic relief States that these symptoms have improved since although she still has occasional nasal congestion lately, most often in the morning when she wakes up She denies any headaches or dizziness Denies any chest pains, no SOB No nausea/vomiting, no abdominal pain No change in bowel habits noted States that she has not yet gotten her current dose of Evenity as she was sick a few weeks ago but plans to go and get it as soon as she can She had her follow up labs done yesterday - to discuss her results [facility] Medical History Tubular adenoma of colon Diverticulosis Fever Anxiety Insomnia Postherpetic neuralgia Varicose veins of leg with pain Primary osteoarthritis, left shoulder Constipation GERD (gastroesophageal reflux disease) Vitamin D deficiency Osteoporosis Pure hypercholesterolemia Surgical History History of colonoscopy Varicose vein of leg History of excision of mass History of total hysterectomy Family History Father Medical history unknown Mother Medical history unknown Son No problems noted. Daughter No problems noted. Social History Household Members: None Housing: Apartment Alcohol intake: never Patient Tobacco Use Status: Never used Tobacco e-Cigarette/Vaping Use: Never Used Second Hand Smoke Exposure: No service: No Current occupational status: disabled Cognitive needs: No Hearing needs: No Vision needs: No Questionnaire PHQ-9 Over the last 2 weeks, how often have you been bothered by any of the following problems? 1. Little interest or pleasure in doing things: not at all 2. Feeling down, depressed, or hopeless: not at all 3. Trouble falling or staying asleep, or sleeping too much: not at all 4. Feeling tired or having little energy: not at all 5. Poor appetite or overeating: not at all 6. Feeling bad about yourself - or that you are a failure or have let yourself or your family down: not at all 7. Trouble concentrating on things, such as reading the newspaper or watching television: not at all 8. Moving or speaking so slowly that other people could have noticed. Or the opposite - being so fidgety or restless that you have been moving around a lot more than usual: not at all 9. Thoughts that you would be better off or of hurting yourself in some way: not at all Total score: 0 Depression Screening Interpretation: Negative Depression Screening Done: Yes 99725 - PHQ-9 Billing: Yes Source: Developed by Drs. Christiano Cuellar, Fabiola Tobin, Adalberto Patel and colleagues, with an educational raudel from [employer]. Thrive Questionnaire Date Thrive assessed: 08/17/24 I am a: Patient What is your living situation today?: I have a steady place to live Within the past 12 months, did the food you bought not last and you didn't have the money to get more?: Never true Within the past 12 months, did you worry whether your food would run out before you got money to buy more?: Never true Do you have trouble paying for medicines?: No Do you have trouble getting transportation to medical appointments?: No Do you have trouble paying your heating and electricity bill?: No Do you have trouble taking care of your child, family member or friend?: No Do you have trouble with day-to-day activities such as bathing, preparing meals, shopping, managing finances, etc.?: No Are you currently unemployed and looking for a job?: No Are you interested in more education?: No Please select the resources that you would like help with: None Currently or been in a relationship where the following occur: No concerns reported THRIVE Score: 0 AUDIT C Alcohol Use Questionnaire (AUDIT-C) 1. How often do you have a drink containing alcohol?: Never 3. How often do you have six or more drinks on one occasion?: Never Total Score: 0 Score Reviewed/Action Taken: Yes JACOBO-7 AMB Questionnaire JACOBO-7 Date JACOBO - 7 assessed: 08/17/24 Feeling nervous, anxious, or on edge: 0 = Not at all Not being able to stop or control worryin = Not at all Worrying too much about different things: 0 = Not at all Trouble relaxin = Not at all Being so restless that it is hard to sit still: 0 = Not at all Becoming easily annoyed or irritable: 0 = Not at all Feeling afraid as if something awful might happen: 0 = Not at all Total JACOBO-7 score (0-4 normal; 5-9 mild; 10-14 moderate; 15-21 severe): 0 Source: Developed by Drs. Christiano Cuellar, Fabiola Tobin, Adalberto Patel and colleagues, with an educational raudel from [employer]. Review of Systems Const Reports difficulty sleeping (Rx helps), Denies fatigue, Denies fever(s) and Denies headache(s) ENT Denies dysphagia, Denies dizziness, Denies otalgia, Denies headache(s), Reports nasal congestion (on and off, worse in the morning), Denies odynophagia, Denies sinus pain and Denies sore throat Card Denies chest pain, Denies palpitations and Denies dyspnea Resp Denies chest congestion, Denies cough and Denies dyspnea GI Denies abdominal pain, Denies constipation, Denies dysphagia, Denies heartburn, Denies diarrhea, Denies nausea, Denies odynophagia and Denies vomiting Denies difficulty voiding, Denies nocturia, Denies dysuria and Denies urinary urgency Musc Denies back pain and Reports arthralgias (on and off) Skin/Breast Denies rash Neuro Denies dizziness and Denies headache(s) Endo Denies fatigue and Denies palpitations Physical exam (Primary Care) Vital Signs: Last Vital Signs Pulse 88 08/17/24 10:41 BP 122/70 08/17/24 10:41 Pulse Ox 95 08/17/24 10:41 Oxygen Delivery Method Room Air 08/17/24 10:41 BMI result Body Mass Index 19.5 Tobacco/Smoking Status: Tobacco use Status Tobacco use date assessed 08/17/24 08/17/24 10:51 Patient Tobacco Use Status Never used Tobacco 08/17/24 10:51 e-Cigarette/Vaping Use Never Used 08/17/24 10:51 PHQ-9: PHQ-9 Score PHQ-9: Total score 0 08/17/24 10:51 Depression Screening Interpretation: Negative Thrive Assessment: Date of Thrive Assessment Date Thrive assessed 08/17/24 08/17/24 10:51 Currently or been in a relationship where the following occur: No concerns reported Const General: no acute distress and alert HENMT Ears: TM's normal bilaterally and EAC's normal Face and sinus: Yes sinuses nontender Throat: Yes posterior oropharynx normal and Yes tonsils normal (no TP congestion noted) Neck Neck: Yes supple and No lymphadenopathy Thyroid: Thyroid normal Resp Auscultation: clear to auscultation bilaterally, no rales and no wheezes Cardio Rate: regular rate Rhythm: regular rhythm Heart sounds: no murmurs GI Palpation (GI): Soft to palpation and nontender Auscultation: normal bowel sounds General: Yes no CVA tenderness Back/Spine/Pelvis Back: no CVA tenderness Thoracic/Lumbar Spine: No lumbar spinal tenderness Skin Rashes: no rashes Extrem General: Yes no clubbing, cyanosis or edema Results Reviewed Results Reviewed: Laboratory Tests 08/16/24 08/16/24 08:38 08:44 WBC 4.7 L Hgb 12.3 Hct 38.0 Plt Count 206 Sodium 140 Potassium 4.2 Creatinine 0.68 Estim Creat Clear Calc Not Reportable Estimated GFR > 60 Fasting Glucose 94 Calcium 9.4 AST 29 ALT 15 Triglycerides 87 Cholesterol 243 H LDL Cholesterol, Calc 139 H HDL Cholesterol 87 25-OH Vitamin D Total 73.3 TSH 2.01 Ur Specific [place] 1.020 Urine Protein Negative Urine Glucose (UA) Negative Urine Blood Trace H Urine Nitrite Negative Ur Leukocyte Esterase Negative Coding Level of Care Code Est Pt Level 4 (58592) Diagnoses Pure hypercholesterolemia E78.00 Age-related osteoporosis without current pathological fracture M81.0 Osteoporosis type: age-related Presence of current pathological fracture: without current pathological fracture Vitamin D deficiency E55.9 Gastroesophageal reflux disease without esophagitis K21.9 Esophagitis presence: without esophagitis Constipation, unspecified constipation type K59.00 Constipation type: unspecified constipation type Primary osteoarthritis, left shoulder M19.012 Varicose veins of lower extremity with pain, unspecified laterality I83.819 Laterality: unspecified laterality Postherpetic neuralgia B02.29 Insomnia, unspecified type G47.00 Insomnia type: unspecified Additional Codes PHQ-9 - 78228 - PHQ-9 Billing: Yes ([id number]) Assessment & Plan Assessment & Plan (1) Pure hypercholesterolemia: Comment: Has been unable to tolerate STATINS in the past Code(s): E78.00 - Pure hypercholesterolemia, unspecified Category: Medical Plan: Results of her labs done yesterday reviewed and discussed with patient Reinforced low cholesterol diet - patient has been unable to tolerate statins in the past and will continue with diet modification for now We tried to start her on Repatha injections for her high cholesterol but she states that her insurance will only cover part of the cost of the Rx and she is unable to afford paying [id number] for the Rx Will recheck her labs and fasting lipids in 4 months for follow up (2) Osteoporosis: Code(s): M81.0 - Age-related osteoporosis without current pathological fracture Category: Medical Qualifiers: Osteoporosis type: age-related Presence of current pathological fracture: without current pathological fracture Qualified Code(s): M81.0 - Age- related osteoporosis without current pathological fracture Plan: BMD done a few months ago revealed (+) osteoporosis Continue Evenity 210 mg SQ once a month She is reminded to continue taking her oral Calcium and Vitamin D supplements daily Follow up with endocrinology as scheduled (3) Vitamin D deficiency: Code(s): E55.9 - Vitamin D deficiency, unspecified Category: Medical Plan: Continue Vitamin D 5000 units daily (4) GERD (gastroesophageal reflux disease): Code(s): K21.9 - Gastro-esophageal reflux disease without esophagitis Category: Medical Qualifiers: Esophagitis presence: without esophagitis Qualified Code(s): K21.9 - Gastro-esophageal reflux disease without esophagitis Plan: Dietary restrictions reinforced Continue Omeprazole 20 mg QD PRN (5) Constipation: Code(s): K59.00 - Constipation, unspecified Category: Medical Qualifiers: Constipation type: unspecified constipation type Qualified Code(s): K59.00 - Constipation, unspecified Plan: Improved - patient is again encouraged to continue increased oral fluids and dietary fiber Continue Miralax 17 gm QD (6) Primary osteoarthritis, left shoulder: Code(s): M19.012 - Primary osteoarthritis, left shoulder Category: Medical Plan: X-rays of the left shoulder done a few years ago showed (+) mild OA changes in the AC joint She is advised to continue with regular shoulder exercises to help manage pain more effectively - patient states that shoulder has not been bothering her as much lately Will consider physical therapy and/ or orthopedics referral if her shoulder symptoms increase or worsen (7) Varicose veins of leg with pain: Code(s): I83.819 - Varicose veins of unspecified lower extremity with pain Category: Medical Qualifiers: Laterality: unspecified laterality Qualified Code(s): I83.819 - Varicose veins of unspecified lower extremity with pain Plan: Follow up with vascular surgery as scheduled (8) Postherpetic neuralgia: Code(s): B02.29 - Other postherpetic nervous system involvement Category: Medical Plan: Patient states that her symptoms have improved significantly and she does not require any Rx or Tx (9) Insomnia: Code(s): G47.00 - Insomnia, unspecified Category: Medical Qualifiers: Insomnia type: unspecified Qualified Code(s): G47.00 - Insomnia, unspecified Plan: Sleep hygiene reinforced Continue Zolpidem 10 mg once a day at bedtime as needed Plan Follow up in 4 months Orders: Orders Complete Blood Count Auto Diff 4 Months D64.9 - Anemia, unspecified Comprehensive [place]. Panel Fast 4 Months E78.00 - Pure hypercholesterolemia, unspecified Vitamin D 25-OH Total 4 Months E55.9 - Vitamin D deficiency, unspecified Lipid Panel 4 Months E78.00 - Pure hypercholesterolemia, unspecified TSH reflex Free T4 4 Months E78.00 - Pure hypercholesterolemia, unspecified UA CC w/rflx Micro + Cult 4 Months R30.0 - Dysuria Medications: Changed From omeprazole 20 mg PO DAILY 90 days 90 caps 3RF K21.9 - Gastro-esophageal reflux disease without esophagitis To omeprazole 20 mg PO DAILY 90 days PRN 90 caps 3RF heartburns K21.9 - Gastro- esophageal reflux disease without esophagitis
== END 2024-08-17 11:28 | disposition home or self-care (01) ==
PROVIDERS: PCP Internal Medicine; Visit Provider Internal Medicine
DX: E78.00 Pure hypercholesterolemia, unspecified (principal); M81.0 Age-related osteoporosis without current pathological fracture; E55.9 Vitamin D deficiency, unspecified; K21.9 Gastro-esophageal reflux disease without esophagitis; K59.00 Constipation, unspecified; M19.012 Primary osteoarthritis, left shoulder; I83.819 Varicose veins of unspecified lower extremity with pain; B02.29 Other postherpetic nervous system involvement; G47.00 Insomnia, unspecified

== ENCOUNTER → 2024-08-17 10:34 | Outpatient (BNVA) | payer MEDICARE, SELFPAY | PROVIDERS: PCP Internal Medicine; Visit Provider Internal Medicine | DX: E78.00 Pure hypercholesterolemia, unspecified (principal); M81.0 Age-related osteoporosis without current pathological fracture; E55.9 Vitamin D deficiency, unspecified; K21.9 Gastro-esophageal reflux disease without esophagitis; K59.00 Constipation, unspecified; M19.012 Primary osteoarthritis, left shoulder; I83.819 Varicose veins of unspecified lower extremity with pain; B02.29 Other postherpetic nervous system involvement; G47.00 Insomnia, unspecified | CPT/HCPCS: 96127; 99212 ==

== ENCOUNTER 2024-09-22 08:55 | Outpatient (REF) | payer MEDICARE, SELFPAY | END 2024-09-22 08:56 | disposition home or self-care (01) | LOC: HO.MAMMO 08:55 | PROVIDERS: PCP Internal Medicine; Visit Provider Internal Medicine | DX: Z12.31 Encounter for screening mammogram for malignant neoplasm of breast (principal) | CPT/HCPCS: 77063; 77067 ==

== ENCOUNTER → 2024-09-22 09:30 | Outpatient (BNV) | payer MEDICARE, SELFPAY | PROVIDERS: PCP Internal Medicine; Visit Provider Internal Medicine | DX: Z12.31 Encounter for screening mammogram for malignant neoplasm of breast (principal) | CPT/HCPCS: 77063; 77067 ==

== ENCOUNTER 2024-12-08 10:15 | Outpatient (AMB) | payer MEDICARE, SELFPAY ==
--- NOTE | 2024-12-08 10:20 | A.OFFVIS_ITS ---
Vital Signs 12/08/24 10:23 Height 5 ft 3.23 in Weight 109 lb 2.061 oz BMI 19.2 BP 132/72 Blood Pressure Location Lt brachial Position Sitting Pulse 77 Pulse Source Pulse Oximeter Pulse Oximetry (%) 98 Oxygen Delivery Method Room Air Intake Visit Reasons: Osteoporosis Intake Note: Patient present today for Osteoporosis follow up. Credit Reporting Clerk Required: Yes Credit Reporting Clerk Language: Program Mgr Services: Credit Reporting Clerk Present Credit Reporting Clerk Name: Oly ULISESGallito Information Interpreted: non-clinical & clinical Accompanied by: Self / Same As Patient Allergies morphine [MORPHINE] Allergy (Intermediate, Verified 12/08/24 10:23) HYPOTENSION, abdominal pains atorvastatin Allergy (Unknown, Verified 12/08/24 10:23) headaches,abdominal pains simvastatin Allergy (Unknown, Verified 12/08/24 10:23) myalgia trazodone Adverse Reaction (Unknown, Verified 12/08/24 10:23) headaches, weakness Medication List - Last Reconciled 12/08/24 by Christiano Montenegro MD calcium citrate 500 mg (2 x 250 mg calcium) PO DAILY 90 days cholecalciferol (vitamin D3) 125 mcg PO DAILY 90 days ibuprofen 400 mg PO Q6H PRN omega-3 fatty acids 1,000 mg PO DAILY NS omeprazole 20 mg PO DAILY PRN 90 days polyethylene glycol 3350 (Miralax) 17 grams PO DAILY romosozumab-aqqg (Evenity) 210 mg (2.34 mL) subcut .qmonthly zolpidem 10 mg PO BEDTIME PRN 30 days HPI Comments Details: 74-year-old female today for visit, shefor osteoporosis management . She is feeling well. She has no complaints. Patient was diagnosed with osteoporosis on April 2020. She reports she had bone density performed around 20 years ago which was normal. She has past medical history of oophorectomy at age 53, she was on estrogen for about 2 months but she had side effects. She has no secondary etiologies for osteoporosis. She does not have hyperparathyroidism, multiple myeloma, hyperthyroidism. She denies prior fragility fractures, she has history of GERD, she is on omeprazole as needed. She does have positive FH of osteoporosis in her mother but no fractures, she denies nephrolithiasis, denies steroids used, never smoker, never on anti seizures medications,. He has negative History of malignancy or head or neck irradiation. Bisphosphonates use: She was started on alendronate 70 mg Q weekly . Now off Calcium intake: She has been on calcium citrate 500 mg twice a day. Vitamin D: 5000 international units daily. OTC Herbal medications. None. 05/12/2020 BONE DENSITOMETRY FINDINGS: AP SPINE L1-L4: BMD 0.710 g/cm2, Z-score -1.5, T-score -3.9, osteoporosis. LEFT FEMUR, NECK: BMD 0.597 g/cm2, Z-score -1.1, T-score -3.2, osteoporosis. LEFT FEMUR, TOTAL: BMD 0.679 g/cm2, Z-score -0.7, T-score -2.6, osteoporosis. FINDINGS: AP SPINE L1-L3 (excluding L4): The data of L1-L4 has been changed to exclude the L4 vertebral body, because degenerative sclerosis at this level may cause overestimation of lumbar spine density. Current: BMD 0.616 g/cm2, Z-score -2.4, T-score -4.6, osteoporosis, 9.7% decrease from baseline (<5% change is not significant). Baseline: BMD 0.682 g/cm2. LEFT FEMUR, NECK: Current: BMD 0.583 g/cm2, Z-score -1.2, T-score -3.3, osteoporosis. Baseline: BMD 0.597 g/cm2. LEFT FEMUR, TOTAL: Current: BMD 0.651 g/cm2, Z-score -0.9, T-score -2.8, osteoporosis, 4.1% decrease from baseline (<5% change is not significant). Baseline: BMD 0.679 g/cm2. IDENTIFIED RISK FACTORS: Menopause, hysterectomy, bilateral oophorectomy, height loss, low body weight, osteoporosis. HISTORY OF FRACTURE: None listed. MEDICATIONS: Calcium supplements, vitamin D, bisphosphonate. MM/XR DEXA axial skeleton IMPRESSION: 1. DIAGNOSIS: Osteoporosis based on the lowest T-score va Laboratory Tests 04/08/20 10/11/20 10/11/20 09:08 09:15 09:15 Hgb Hct Creatinine Estimated GFR Alkaline Phosphatase Total Protein (PEP) Albumin Albumin (PEP) Twjpn-7-Syrktmlfd Zllef-6-Ljlhhhhda Ojun-6-Cdmrkwyq Ttgs-1-Izciqtgk N-Telopeptide X-linked 55 25-OH Vitamin D Total 1,25 Dihydroxy Vit D 43 1,25 Dihydroxy Vit D3 43 TSH TSH 3rd Generation 2.68 PTH Intact 42 Calcium (PTH Intact) 10.1 Ur 24 Hour Volume Urine Creatinine 112 Ur Creatinine mg/dL Ur Creatinine 24 Hour Ur Calcium 24 Hr Calcium/Creat 24 Hr IgA Endomysial Ab Titer Endomysial IgA Ab Tiss Transglutamin IgG 10/11/20 10/14/20 10/14/20 09:15 08:00 08:00 Hgb Hct Creatinine Estimated GFR Alkaline Phosphatase Total Protein (PEP) 6.9 Albumin Albumin (PEP) 4.5 Cupyr-7-Ehsmtvzar 0.2 Dterh-4-Fcwttcbyp 0.6 Ntmo-0-Nxhqzeay 0.4 Lvtk-4-Lkuntanr 0.4 N-Telopeptide X-linked 25-OH Vitamin D Total 1,25 Dihydroxy Vit D 1,25 Dihydroxy Vit D3 TSH TSH 3rd Generation PTH Intact Calcium (PTH Intact) Ur 24 Hour Volume 1100 Urine Creatinine Ur Creatinine mg/dL 59.30 Ur Creatinine 24 Hour Ur Calcium 24 Hr 96 Calcium/Creat 24 Hr 150 IgA 265 Endomysial Ab Titer TNP Endomysial IgA Ab Negative Tiss Transglutamin IgG 2 10/14/20 12/04/20 12/04/20 08:00 09:36 09:36 Hgb 11.2 L Hct 35.1 L Creatinine 0.71 Estimated GFR > 60 Alkaline Phosphatase 74 Total Protein (PEP) Albumin 4.2 Albumin (PEP) Guaod-6-Gybhnrntt Jfyab-1-Lpnrblomm Walk-0-Muigftim Yfdj-7-Ikgihujg N-Telopeptide X-linked 25-OH Vitamin D Total 37.6 1,25 Dihydroxy Vit D 1,25 Dihydroxy Vit D3 TSH 1.99 TSH 3rd Generation PTH Intact Calcium (PTH Intact) Ur 24 Hour Volume Urine Creatinine Ur Creatinine mg/dL Ur Creatinine 24 Hour 0.65 Ur Calcium 24 Hr Calcium/Creat 24 Hr IgA Endomysial Ab Titer Endomysial IgA Ab Tiss Transglutamin IgG Laboratory Tests 04/08/20 08/02/20 08/02/20 09:08 10:37 10:37 Hgb 11.5 L Hct 35.8 L Creatinine 0.68 Estimated GFR > 60 Calcium 9.5 Alkaline Phosphatase 77 Albumin 4.4 25-OH Vitamin D Total 19.2 TSH 1.67 TSH 3rd Generation 2.68 Currently on Evenity since 02/2024. No fx since last visit. No back pain . not received Evenity injections for 4 mos because had flu sx The patient is a 74-year-old female presenting with management concerns regarding her osteoporosis treatment regimen. Her previous course of Evenity injections was halted four months ago due to an extended illness with flu-like symptoms that intermittently lasted for two months. She expressed uncertainty in continuing the injections during her illness. Prior to this, a transient rash appeared after her fourth injection, though this resolved on its own. The patient acknowledges her osteoporosis as profound, citing a lumbar spine T-score of negative 3.9 and is aware of the risk associated with not continuing her treatment. She places significant importance on resuming her injections to prevent fractures, noting that she has not experienced fractures to date, but is wary due to the potential impacts on her autonomy and quality of life. [facility] Medical History Tubular adenoma of colon Diverticulosis Fever Anxiety Insomnia Postherpetic neuralgia Varicose veins of leg with pain Primary osteoarthritis, left shoulder Constipation GERD (gastroesophageal reflux disease) Vitamin D deficiency Osteoporosis Pure hypercholesterolemia Surgical History History of colonoscopy Varicose vein of leg History of excision of mass History of total hysterectomy Family History Father Medical history unknown Mother Medical history unknown Son No problems noted. Daughter No problems noted. Social History Household Members: None Housing: Apartment Alcohol intake: never Patient Tobacco Use Status: Never used Tobacco e-Cigarette/Vaping Use: Never Used Second Hand Smoke Exposure: No service: No Current occupational status: disabled Cognitive needs: No Hearing needs: No Vision needs: No Physical Exam Vital Signs: Last Vital Signs Pulse 77 12/08/24 10:23 BP 132/72 12/08/24 10:23 Pulse Ox 98 12/08/24 10:23 Oxygen Delivery Method Room Air 12/08/24 10:23 BMI result Body Mass Index 19.2 Assessment & Plan Assessment & Plan (1) Osteoporosis: Code(s): M81.0 - Age-related osteoporosis without current pathological fracture Category: Medical Qualifiers: Osteoporosis type: age-related Presence of current pathological fracture: without current pathological fracture Qualified Code(s): M81.0 - Age- related osteoporosis without current pathological fracture Plan: This is a 74-year-old female with a history of osteoporosis being treated with alendronate 70 mg Q weekly. Secondary workup was negative. Currently on Evenity for 9 mos 1. Osteoporosis This patient has been diagnosed with severe osteoporosis with a T-score of negative 3.9. Due to her prolonged illness, she discontinued the necessary injection therapy which is critical to her treatment plan. I recommended reapplying to the insurance company to authorize restarting the injections. If approved, it's crucial to continue therapy for one year uninterrupted to prevent further deterioration. Alternatives such as Tymlos or Forteo remain options if current treatment regimens prove ineffective or show adverse reactions. - Contact your insurance company to check the status of injection coverage. - Monitor for any reappearance of rashes or symptoms and report to the office if they occur. - If coverage is approved, plan to resume injections without interruption for a full year. - Call the office in two weeks if you have not heard back about the medication plan. - Stay alert for symptoms like rash or extended illnesses, and report them directly to us. The patient had an opportunity to ask questions regarding treatment plan. The patient expressed understanding and agreement with the above treatment plan. Patient was informed and verbally consented to the use of an ambient scribe for clinic note documentation during this visit. Orders: Orders XR DEXA axial skeleton Today M81.0 - Age-related osteoporosis without current pathological fracture Coding Level of Care Code Est Pt Level 3 (93660) Diagnoses Age-related osteoporosis without current pathological fracture M81.0 Osteoporosis type: age-related Presence of current pathological fracture: without current pathological fracture
[2024-12-08 10:23] VITALS: BP 132/72; PULSE 77; O2SAT 98; BMI 19.2
== END 2024-12-08 10:46 | disposition home or self-care (01) ==
LOC: HO.ENCR 10:16
PROVIDERS: PCP Internal Medicine; Visit Provider Internal Medicine Endocrinology, Diabetes & Metabolism
DX: M81.0 Age-related osteoporosis without current pathological fracture (principal)
CPT/HCPCS: 99213

== ENCOUNTER → 2024-12-08 10:15 | Outpatient (BNVA) | payer MEDICARE, SELFPAY | PROVIDERS: PCP Internal Medicine; Visit Provider Internal Medicine Endocrinology, Diabetes & Metabolism | DX: M81.0 Age-related osteoporosis without current pathological fracture (principal) | CPT/HCPCS: 99212 ==

== ENCOUNTER 2024-12-16 08:35 | Outpatient (REF) | payer MEDICARE, SELFPAY ==
[2024-12-16 08:51] LABS: MANUAL DIFF FLAG NO
[2024-12-16 09:38] LABS: Basophils Percent Auto 1.2 % (0-2); Eosinophils Absolute Auto 0.1 X10*3/uL (0.0-0.4); Eosinophils Percent Auto 2.9 % (0-4); Hematocrit 36.1 % (37.0-47.0); Hemoglobin 11.5 g/dl (12.0-16.0); Imm Gran Abs Auto 0.01 X10*3/uL (0.00-0.03); Imm Gran Pct Auto 0.3 % (0.0-0.4); Lymphocytes Absolute Auto 1.4 X10*3/uL (1.2-4.9); Lymphocytes Percent Auto 42.1 % (20-40); Mean Corpuscular HGB Conc 31.9 g/dl (31.0-35.0); Mean Corpuscular Hemoglobin 29.3 pg (27.0-33.0); Mean Corpuscular Volume 92.1 fL (80.0-98.0); Mean Platelet Volume 10.6 fL (9.4-12.3); Monocytes Absolute Auto 0.2 X10*3/uL (0.1-1.2); Monocytes Percent Auto 7.1 % (2-11); Neutrophils Absolute Auto 1.6 x10*3/uL (2.0-8.3); Neutrophils Percent Auto 46.4 % (45-73); Platelet Count 216 X10*3/uL (160-400); Red Blood Count 3.92 X10*6/uL (4.20-5.50); Red Cell Distribution Width 13.5 % (11.0-16.0); White Blood Count 3.4 X10*3/uL (4.8-10.8)
[2024-12-16 10:04] LABS: Alanine Aminotransferase 13 U/L (0-31); Albumin Level 4.3 g/dL (3.5-5.0); Alkaline Phosphatase 76 U/L (39-117); Anion Gap 11 (12-20); Aspartate Amino Transferase 25 U/L (5-31); Bilirubin Total 0.7 mg/dL (0.0-1.0); Blood Urea Nitrogen 14 mg/dL (9-16); Carbon Dioxide 29 mmol/L (22-29); Chloride 109 mmol/L (96-108); Cholesterol 268 mg/dL (<200); Estimated Glomerular Filt Rate > 60; Glucose Fasting 92 mg/dL (60-99); HDL Cholesterol 85 mg/dL (>40); LDL Cholesterol Calculated 162 mg/dL (<100); Potassium 4.5 mmol/L (3.3-5.1); Sodium 144 mmol/L (135-145); Total Protein 6.9 g/dL (6.5-8.0); Triglycerides 106 mg/dL (<150)
[2024-12-16 10:28] LABS: TSH reflex Free T4 2.68 uIU/mL (0.32-4.0); Vitamin D 25-OH Total 65.4 ng/mL (>30)
[2024-12-16 11:31] LABS: Appearance Urine Clear; Color Urine Yellow; Glucose Urine UA Negative (Negative); Leukocyte Esterase Urine Negative (Negative); Nitrite Urine Negative (Negative); PH 5.5 (5.0-9.0); Urine Blood Negative (Negative); Urine Ketones Negative (Negative); Urine Protein Negative (Neg-Trace)
== END 2024-12-16 08:36 | disposition home or self-care (01) ==
LOC: HO.LAB 08:35
PROVIDERS: PCP Internal Medicine; Visit Provider Internal Medicine
DX: D64.9 Anemia, unspecified (principal); E78.00 Pure hypercholesterolemia, unspecified; R30.0 Dysuria; E55.9 Vitamin D deficiency, unspecified
CPT/HCPCS: 36415; 80053; 80061; 81003; 82306; 84443; 85025; 96372; J3111

== ENCOUNTER 2024-12-16 10:05 | Outpatient (AMB) | payer MEDICARE, SELFPAY ==
--- NOTE | 2024-12-16 10:44 | AM.OFFVISNUR ---
Intake Visit Reasons: Evenity #1 Allergies morphine [MORPHINE] Allergy (Intermediate, Verified 12/08/24 10:23) HYPOTENSION, abdominal pains atorvastatin Allergy (Unknown, Verified 12/08/24 10:23) headaches,abdominal pains simvastatin Allergy (Unknown, Verified 12/08/24 10:23) myalgia trazodone Adverse Reaction (Unknown, Verified 12/08/24 10:23) headaches, weakness Office Meds romosozumab-aqqg 210 mg/2.34 mL(105 mg/1.17 mL x2)subcutaneous syringe Performing Provider: Christiano Montenegro MD [place] Location[place] [facility] [place] Administered by: Anna Vicente RN on 12/16/24 10:44 Dose Route Admin Location Dispensed Lot Number Expiration Date NDC Director Of Conservation 210 mg subcut bilateral upper arms 2.34 mL [id number] 02/17/27 64943-724-89 AMGEN Comments: Pt denied spanish interpreter services. Pt tolerated injection well. Per , pt did not have to stay 15 mins after injection due to pt having been previously on this medication before with no adverse reactions reported. Pt advised to continue taking calcium and Vit D supplementation throughout evenity injections. Patient advised to alert her dentist she is on this medication. Patient aware to watch for site reactions at injection site such as redness, warmth or swelling. Pt aware to call the office if any of these were to occur or other side effects such as headache or joint pain. Assessment & Plan Assessment & Plan Orders: Orders AMB Romosozumab Injection Patient Supplied Today M81.0 - Age-related osteoporosis without current pathological fracture Medications: New romosozumab-aqqg 210 mg (2.34 mL) subcut ONCE 2.34 mL 0RF M81.0 - Age-related osteoporosis without current pathological fracture Coding
== END 2024-12-16 10:41 | disposition home or self-care (01) ==
LOC: HO.ENCR 10:05
PROVIDERS: PCP Internal Medicine; Visit Provider Internal Medicine Endocrinology, Diabetes & Metabolism
DX: M81.0 Age-related osteoporosis without current pathological fracture (principal)

== ENCOUNTER 2024-12-20 10:45 | Outpatient (AMB) | payer MEDICARE, SELFPAY ==
[2024-12-20 10:49] VITALS: BP 112/60; PULSE 78; O2SAT 97; BMI 19.0
--- NOTE | 2024-12-20 10:49 | MHC.PC.OV ---
Vital Signs 12/20/24 10:49 Height 5 ft 3.5 in Weight 109 lb BMI 19.0 BP 112/60 Blood Pressure Location Lt brachial Position Sitting Pulse 78 Pulse Source Pulse Oximeter Pulse Oximetry (%) 97 Oxygen Delivery Method Room Air Intake Visit Reasons: hyperlipidemia, osteoporosis Motor Vehicle License Clerk Required: No Accompanied by: Self / Same As Patient Allergies morphine [MORPHINE] Allergy (Intermediate, Verified 12/20/24 11:03) HYPOTENSION, abdominal pains atorvastatin Allergy (Unknown, Verified 12/20/24 11:03) headaches,abdominal pains simvastatin Allergy (Unknown, Verified 12/20/24 11:03) myalgia trazodone Adverse Reaction (Unknown, Verified 12/20/24 11:03) headaches, weakness Medication List - Last Reconciled 12/20/24 by Seferino Azar MD calcium citrate 500 mg (2 x 250 mg calcium) PO DAILY 90 days cholecalciferol (vitamin D3) 125 mcg PO DAILY 90 days ibuprofen 400 mg PO Q6H PRN omega-3 fatty acids 1,000 mg PO DAILY NS omeprazole 20 mg PO DAILY PRN 90 days polyethylene glycol 3350 (Miralax) 17 grams PO DAILY romosozumab-aqqg (Evenity) 210 mg (2.34 mL) subcut .qmonthly zolpidem 10 mg PO BEDTIME PRN 30 days Tobacco use date assessed: 12/20/24 Fall risk assessment: No Falls in past year Last assessed Fall Risk: 12/20/24 Dental Screening Dental Screen Date: 12/20/24 Did you have a dental visit in the last 12 months?: No Did you have a dental problem in the last 6 months where you did not have access to dental care?: No Was dental information given to patient?: No HPI hyperlipidemia, osteoporosis HPI Details Patient comes in today for her follow up visit States that she currently feels okay She denies any headaches or dizziness Denies any chest pains, no SOB No nausea/vomiting, no abdominal pain No change in bowel habits noted She had her follow up labs done a few days ago - to discuss her results [facility] Medical History Tubular adenoma of colon Diverticulosis Fever Anxiety Insomnia Postherpetic neuralgia Varicose veins of leg with pain Primary osteoarthritis, left shoulder Constipation GERD (gastroesophageal reflux disease) Vitamin D deficiency Osteoporosis Pure hypercholesterolemia Surgical History History of colonoscopy Varicose vein of leg History of excision of mass History of total hysterectomy Family History Father Medical history unknown Mother Medical history unknown Son No problems noted. Daughter No problems noted. Social History Household Members: None Housing: Apartment Alcohol intake: never Patient Tobacco Use Status: Never used Tobacco e-Cigarette/Vaping Use: Never Used Second Hand Smoke Exposure: No service: No Current occupational status: disabled Cognitive needs: No Hearing needs: No Vision needs: No Questionnaire PHQ-9 Over the last 2 weeks, how often have you been bothered by any of the following problems? 1. Little interest or pleasure in doing things: not at all 2. Feeling down, depressed, or hopeless: not at all 3. Trouble falling or staying asleep, or sleeping too much: not at all 4. Feeling tired or having little energy: several days 5. Poor appetite or overeating: not at all 6. Feeling bad about yourself - or that you are a failure or have let yourself or your family down: not at all 7. Trouble concentrating on things, such as reading the newspaper or watching television: not at all 8. Moving or speaking so slowly that other people could have noticed. Or the opposite - being so fidgety or restless that you have been moving around a lot more than usual: not at all 9. Thoughts that you would be better off or of hurting yourself in some way: not at all Total score: 1 Depression Screening Interpretation: Negative Depression Screening Done: Yes 26575 - PHQ-9 Billing: Yes Source: Developed by Drs. Christiano Cuellar, Fabiola Tobin, Adalberto Patel and colleagues, with an educational raudel from [employer]. Thrive Questionnaire Date Thrive assessed: 12/20/24 I am a: Patient What is your living situation today?: I choose not to answer this question Within the past 12 months, did the food you bought not last and you didn't have the money to get more?: I choose not to answer this question Within the past 12 months, did you worry whether your food would run out before you got money to buy more?: I choose not to answer this question Do you have trouble paying for medicines?: I choose not to answer this question Do you have trouble getting transportation to medical appointments?: I choose not to answer this question Do you have trouble paying your heating and electricity bill?: I choose not to answer this question Do you have trouble taking care of your child, family member or friend?: I choose not to answer this question Do you have trouble with day-to-day activities such as bathing, preparing meals, shopping, managing finances, etc.?: No Are you currently unemployed and looking for a job?: No Are you interested in more education?: I choose not to answer this question Please select the resources that you would like help with: None Currently or been in a relationship where the following occur: I choose not to answer THRIVE Score: 0 AUDIT C Alcohol Use Questionnaire (AUDIT-C) 1. How often do you have a drink containing alcohol?: Never 3. How often do you have six or more drinks on one occasion?: Never Total Score: 0 Score Reviewed/Action Taken: Yes JACOBO-7 AMB Questionnaire JACOBO-7 Date JACOBO - 7 assessed: 12/20/24 Feeling nervous, anxious, or on edge: 0 = Not at all Not being able to stop or control worryin = Not at all Worrying too much about different things: 0 = Not at all Trouble relaxin = Not at all Being so restless that it is hard to sit still: 0 = Not at all Becoming easily annoyed or irritable: 1 = Several days Feeling afraid as if something awful might happen: 0 = Not at all Total JACOBO-7 score (0-4 normal; 5-9 mild; 10-14 moderate; 15-21 severe): 1 Source: Developed by Drs. Christiano Cuellar, Fabiola Tobin, Adalberto Patel and colleagues, with an educational raudel from [employer]. Review of Systems Const Denies chills, Denies fatigue, Denies fever(s) and Denies headache(s) ENT Denies dysphagia, Denies dizziness, Denies otalgia, Denies headache(s), Denies neck pain, Denies odynophagia and Denies sore throat Card Denies chest pain, Denies irregular heart rhythm, Denies palpitations and Denies dyspnea Resp Denies chest congestion, Denies cough and Denies dyspnea GI Denies abdominal pain, Denies constipation, Denies dysphagia, Denies diarrhea, Denies nausea, Denies odynophagia and Denies vomiting Denies difficulty voiding, Denies nocturia, Denies dysuria and Denies urinary urgency Musc Denies back pain and Denies neck pain Skin/Breast Denies rash Neuro Denies dizziness and Denies headache(s) Endo Denies fatigue and Denies palpitations Physical exam (Primary Care) Vital Signs: Last Vital Signs Pulse 78 12/20/24 10:49 BP 112/60 12/20/24 10:49 Pulse Ox 97 12/20/24 10:49 Oxygen Delivery Method Room Air 12/20/24 10:49 BMI result Body Mass Index 19.0 Tobacco/Smoking Status: Tobacco use Status Tobacco use date assessed 12/20/24 12/20/24 10:55 Patient Tobacco Use Status Never used Tobacco 12/20/24 10:55 e-Cigarette/Vaping Use Never Used 12/20/24 10:55 PHQ-9: PHQ-9 Score PHQ-9: Total score 1 12/20/24 10:55 Depression Screening Interpretation: Negative Thrive Assessment: Date of Thrive Assessment Date Thrive assessed 12/20/24 12/20/24 10:55 Currently or been in a relationship where the following occur: I choose not to answer Const General: no acute distress and alert HENMT Ears: TM's normal bilaterally and EAC's normal Throat: Yes posterior oropharynx normal and Yes tonsils normal (no TP congestion noted) Neck Neck: Yes supple and No lymphadenopathy Thyroid: Thyroid normal Resp Auscultation: clear to auscultation bilaterally, no rales and no wheezes Cardio Rate: regular rate Rhythm: regular rhythm Heart sounds: no murmurs GI Palpation (GI): Soft to palpation and nontender Auscultation: normal bowel sounds General: Yes no CVA tenderness Back/Spine/Pelvis Back: no CVA tenderness Thoracic/Lumbar Spine: No lumbar spinal tenderness Skin Rashes: no rashes Extrem General: Yes no clubbing, cyanosis or edema Results Reviewed Results Reviewed: Laboratory Tests 12/16/24 12/16/24 08:48 10:39 WBC 3.4 L Hgb 11.5 L Hct 36.1 L Plt Count 216 Sodium 144 Potassium 4.5 Creatinine 0.62 Estimated GFR > 60 Fasting Glucose 92 Calcium 10.0 D AST 25 ALT 13 Triglycerides 106 Cholesterol 268 H LDL Cholesterol, Calc 162 H HDL Cholesterol 85 25-OH Vitamin D Total 65.4 TSH 2.68 Ur Specific [place] 1.020 Urine Protein Negative Urine Glucose (UA) Negative Urine Blood Negative Urine Nitrite Negative Ur Leukocyte Esterase Negative Coding Level of Care Code Est Pt Level 4 (06898) Diagnoses Pure hypercholesterolemia E78.00 Age-related osteoporosis without current pathological fracture M81.0 Osteoporosis type: age-related Presence of current pathological fracture: without current pathological fracture Vitamin D deficiency E55.9 Gastroesophageal reflux disease without esophagitis K21.9 Esophagitis presence: without esophagitis Constipation, unspecified constipation type K59.00 Constipation type: unspecified constipation type Primary osteoarthritis, left shoulder M19.012 Varicose veins of lower extremity with pain, unspecified laterality I83.819 Laterality: unspecified laterality Postherpetic neuralgia B02.29 Insomnia, unspecified type G47.00 Insomnia type: unspecified Additional Codes PHQ-9 - 86138 - PHQ-9 Billing: Yes ([id number]) Assessment & Plan Assessment & Plan (1) Pure hypercholesterolemia: Comment: Has been unable to tolerate STATINS in the past Code(s): E78.00 - Pure hypercholesterolemia, unspecified Category: Medical Plan: Results of her labs done a few days ago reviewed and discussed with patient - she is advised that her total and LDL cholesterol levels have increased slightly from previous Reinforced low cholesterol diet - patient has been unable to tolerate statins in the past We tried to start her on Repatha injections for her high cholesterol but she states that her insurance will only cover part of the cost of the Rx and she is unable to afford paying [id number] for the Rx She will continue with diet modification for now Will recheck her labs and fasting lipids in 4 months for follow up (2) Osteoporosis: Code(s): M81.0 - Age-related osteoporosis without current pathological fracture Category: Medical Qualifiers: Osteoporosis type: age-related Presence of current pathological fracture: without current pathological fracture Qualified Code(s): M81.0 - Age-related osteoporosis without current pathological fracture Plan: BMD done a few months ago revealed (+) osteoporosis Continue Evenity 210 mg SQ once a month - she appears to be tolerating Evenity so far She is reminded to continue taking her oral Calcium and Vitamin D supplements daily Follow up with endocrinology as scheduled (3) Vitamin D deficiency: Code(s): E55.9 - Vitamin D deficiency, unspecified Category: Medical Plan: Continue Vitamin D 5000 units daily (4) GERD (gastroesophageal reflux disease): Code(s): K21.9 - Gastro-esophageal reflux disease without esophagitis Category: Medical Qualifiers: Esophagitis presence: without esophagitis Qualified Code(s): K21.9 - Gastro-esophageal reflux disease without esophagitis Plan: Dietary restrictions reinforced Continue Omeprazole 20 mg QD PRN (5) Constipation: Code(s): K59.00 - Constipation, unspecified Category: Medical Qualifiers: Constipation type: unspecified constipation type Qualified Code(s): K59.00 - Constipation, unspecified Plan: Improved - patient is again encouraged to continue increased oral fluids and dietary fiber Continue Miralax 17 gm QD (6) Primary osteoarthritis, left shoulder: Code(s): M19.012 - Primary osteoarthritis, left shoulder Category: Medical Plan: X-rays of the left shoulder done a few years ago showed (+) mild OA changes in the AC joint She is advised to continue with regular shoulder exercises to help manage pain more effectively - patient states that shoulder has not been bothering her as much lately Will consider physical therapy and/ or orthopedics referral if her shoulder symptoms increase or worsen (7) Varicose veins of leg with pain: Code(s): I83.819 - Varicose veins of unspecified lower extremity with pain Category: Medical Qualifiers: Laterality: unspecified laterality Qualified Code(s): I83.819 - Varicose veins of unspecified lower extremity with pain Plan: Follow up with vascular surgery as scheduled (8) Postherpetic neuralgia: Code(s): B02.29 - Other postherpetic nervous system involvement Category: Medical Plan: Patient states that her symptoms have improved significantly and she does not require any Rx or Tx (9) Insomnia: Code(s): G47.00 - Insomnia, unspecified Category: Medical Qualifiers: Insomnia type: unspecified Qualified Code(s): G47.00 - Insomnia, unspecified Plan: Sleep hygiene reinforced Continue Zolpidem 10 mg once a day at bedtime as needed Plan Follow up in 4 months Orders: Orders Complete Blood Count Auto Diff 4 Months D64.9 - Anemia, unspecified UA CC w/rflx Micro + Cult 4 Months R30.0 - Dysuria Vitamin D 25-OH Total 4 Months E55.9 - Vitamin D deficiency, unspecified Comprehensive [place]. Panel Fast 4 Months E78.00 - Pure hypercholesterolemia, unspecified Lipid Panel 4 Months E78.00 - Pure hypercholesterolemia, unspecified TSH reflex Free T4 4 Months E78.00 - Pure hypercholesterolemia, unspecified
== END 2024-12-20 11:16 | disposition home or self-care (01) ==
LOC: HO.HMCH 10:46
PROVIDERS: PCP Internal Medicine; Visit Provider Internal Medicine
DX: E78.00 Pure hypercholesterolemia, unspecified (principal); M81.0 Age-related osteoporosis without current pathological fracture; E55.9 Vitamin D deficiency, unspecified; K21.9 Gastro-esophageal reflux disease without esophagitis; K59.00 Constipation, unspecified; M19.012 Primary osteoarthritis, left shoulder; I83.819 Varicose veins of unspecified lower extremity with pain; B02.29 Other postherpetic nervous system involvement; G47.00 Insomnia, unspecified

== ENCOUNTER → 2024-12-20 10:45 | Outpatient (BNVA) | payer MEDICARE, SELFPAY | PROVIDERS: PCP Internal Medicine; Visit Provider Internal Medicine | DX: E78.00 Pure hypercholesterolemia, unspecified (principal); M81.0 Age-related osteoporosis without current pathological fracture; E55.9 Vitamin D deficiency, unspecified; K21.9 Gastro-esophageal reflux disease without esophagitis; K59.00 Constipation, unspecified; M19.012 Primary osteoarthritis, left shoulder; B02.29 Other postherpetic nervous system involvement; G47.00 Insomnia, unspecified | CPT/HCPCS: 96127; 99212 ==

== ENCOUNTER 2025-01-13 08:49 | Outpatient (AMB) | payer MEDICARE, SELFPAY ==
--- NOTE | 2025-01-13 09:10 | AM.OFFVISNUR ---
Intake Visit Reasons: Evenity #2 Allergies morphine (MORPHINE) Allergy (Intermediate, Verified 12/20/24 11:03) HYPOTENSION, abdominal pains atorvastatin Allergy (Unknown, Verified 12/20/24 11:03) headaches,abdominal pains simvastatin Allergy (Unknown, Verified 12/20/24 11:03) myalgia trazodone Adverse Reaction (Unknown, Verified 12/20/24 11:03) headaches, weakness Office Meds romosozumab-aqqg 210 mg/2.34 mL(105 mg/1.17 mL x2)subcutaneous syringe Performing Provider: Christiano Montenegro MD Per[place] Location[place] [facility] [place] Administered by: Anna Vicente RN on 01/13/25 09:10 Dose Route Admin Location Dispensed Lot Number Expiration Date NDC Refueling Ramp Supervisor 210 mg subcut bilateral upper arms 2.34 mL [id number] 10/18/26 11704-534-59 AMGEN Total Dispensed Waste 2.34 mL 0 % Comments: Pt declined shoe turner services. Pt tolerated injection well. No adverse reactions reported from previous injection. Pt scheduled for next appt in 4 weeks Assessment & Plan Assessment & Plan Orders: Orders AMB Romosozumab Injection Patient Supplied Today M81.0 - Age-related osteoporosis without current pathological fracture Coding
== END 2025-01-13 09:07 | disposition home or self-care (01) ==
LOC: HO.ENCR 08:50
PROVIDERS: PCP Internal Medicine; Visit Provider Internal Medicine Endocrinology, Diabetes & Metabolism
DX: M81.0 Age-related osteoporosis without current pathological fracture (principal)

== ENCOUNTER → 2025-01-13 08:49 | Outpatient (BNVA) | payer MEDICARE, SELFPAY | PROVIDERS: PCP Internal Medicine; Visit Provider Internal Medicine Endocrinology, Diabetes & Metabolism | DX: M81.0 Age-related osteoporosis without current pathological fracture (principal) | CPT/HCPCS: 96372; J3111 ==

== ENCOUNTER 2025-01-20 08:47 | Outpatient (REF) | payer MEDICARE, SELFPAY ==
--- NOTE | ~2025-01-20 | MM_ITS ---
EXAMINATION: DXA BONE DENSITY AXIAL HISTORY: M81.0 - Age-related osteoporosis without current pathological fracture TECHNIQUE: [place] Dual energy absorptiometry (DEXA) of the lumbar spine, total left hip, and femoral neck was performed. COMPARISON: Comparison is made with the prior examination dated 05/15/2022. FINDINGS: The bone mineral density of the lumbar spine is 0.713 g/cm2, corresponding to a T-score of -3.8, and a Z-score of -1.5. This is indicative of osteoporosis. This represents a BMD change of 15.7% compared to the prior exam. This is statistically significant. The bone mineral density of the left total hip is 0.680 g/cm2, corresponding to a T-score of -2.6, and a Z-score of -0.5. This is indicative of osteoporosis. This represents a BMD change of 4.5% compared to the prior exam. This is not statistically significant. The bone mineral density of the left femoral neck is 0.610 g/cm2, corresponding to a T-score of -3.1, and a Z-score of -0.8. This is indicative of osteoporosis. This represents a BMD change of 4.6% compared to the prior exam. FRACTURE RISK: The FRAX index suggests a ten year probability of major osteoporotic fracture of 10.9%, and of hip fracture 4.4%. MM/XR DEXA axial skeleton IMPRESSION: Based on bone mineral density, and according to World Health Organization (WHO) criteria, the diagnosis is consistent with osteoporosis. Statistically, 68% of repeat scans fall within 1 SD (+/- 0.010 g/cm2 for AP spine L1-L4) and 1 SD (+/- 0.012 g/cm2 for femur total) FRAX is a trademark of the [employer] Met[employer] Disease, a World Health Organization (WHO) Collaborating Center. Electronically signed by: Christiano Rockwell MD 01/20/2025 10:00 AM EDT
== END 2025-01-20 08:48 | disposition home or self-care (01) ==
LOC: HO.MAMMO 08:47
PROVIDERS: PCP Internal Medicine; Visit Provider Internal Medicine Endocrinology, Diabetes & Metabolism
DX: M81.0 Age-related osteoporosis without current pathological fracture (principal)
CPT/HCPCS: 77080

== ENCOUNTER → 2025-01-20 09:15 | Outpatient (BNV) | payer MEDICARE, SELFPAY | PROVIDERS: PCP Internal Medicine; Visit Provider Radiology Diagnostic Radiology | DX: E28.39 Other primary ovarian failure (principal) | CPT/HCPCS: 77080 ==

== ENCOUNTER 2025-02-10 08:46 | Outpatient (AMB) | payer MEDICARE, SELFPAY ==
--- NOTE | 2025-02-10 09:08 | AM.OFFVISNUR ---
Intake Visit Reasons: Evenity #3 Allergies morphine (MORPHINE) Allergy (Intermediate, Verified 12/20/24 11:03) HYPOTENSION, abdominal pains atorvastatin Allergy (Unknown, Verified 12/20/24 11:03) headaches,abdominal pains simvastatin Allergy (Unknown, Verified 12/20/24 11:03) myalgia trazodone Adverse Reaction (Unknown, Verified 12/20/24 11:03) headaches, weakness Office Meds romosozumab-aqqg 210 mg/2.34 mL(105 mg/1.17 mL x2)subcutaneous syringe Performing Provider: Christiano Montenegro MD [place] [facility] [place] Administered by: Anna Vicente RN on 02/10/25 09:08 Dose Route Admin Location Dispensed Lot Number Expiration Date ND News Camera Operator 210 mg subcut bilateral upper arms 2.34 mL [id number] 04/19/27 82112-707-60 AMGEN Total Dispensed Waste 2.34 mL 0 % Comments: Pt reported slight headache after receiving previous injection that went away after a few days. No other adverse reactions reported. Pt tolerated injection well. Pt scheduled in 4 weeks for next appt. No further questions at this time. Assessment & Plan Assessment & Plan Orders: Orders AMB Romosozumab Injection Patient Supplied Today M81.0 - Age-related osteoporosis without current pathological fracture Coding
== END 2025-02-10 09:07 | disposition home or self-care (01) ==
LOC: HO.ENCR 08:47
PROVIDERS: PCP Internal Medicine; Visit Provider Internal Medicine Endocrinology, Diabetes & Metabolism
DX: M81.0 Age-related osteoporosis without current pathological fracture (principal)

== ENCOUNTER → 2025-02-10 08:46 | Outpatient (BNVA) | payer MEDICARE, SELFPAY | PROVIDERS: PCP Internal Medicine; Visit Provider Internal Medicine Endocrinology, Diabetes & Metabolism | DX: M81.0 Age-related osteoporosis without current pathological fracture (principal) | CPT/HCPCS: 96372; J3111 ==

== ENCOUNTER 2025-03-14 08:37 | Outpatient (AMB) | payer MEDICARE, SELFPAY ==
--- NOTE | 2025-03-14 08:59 | AM.OFFVISNUR ---
Intake Visit Reasons: Evenity #4 Allergies morphine (MORPHINE) Allergy (Intermediate, Verified 12/20/24 11:03) HYPOTENSION, abdominal pains atorvastatin Allergy (Unknown, Verified 12/20/24 11:03) headaches,abdominal pains simvastatin Allergy (Unknown, Verified 12/20/24 11:03) myalgia trazodone Adverse Reaction (Unknown, Verified 12/20/24 11:03) headaches, weakness Office Meds romosozumab-aqqg 210 mg/2.34 mL(105 mg/1.17 mL x2)subcutaneous syringe Performing Provider: Christiano Montenegro MD [place] [facility] [place] Administered by: Anna Vicente RN on 03/14/25 08:59 Dose Route Admin Location Dispensed Lot Number Expiration Date ND Sales And Service Change Leader 210 mg subcut bilateral upper arms 2.34 mL [id number] 04/19/27 54504-305-44 AMGEN Total Dispensed Waste 2.34 mL 0 % Comments: Pt declined stone rubber. No adverse reactions reported from previous injection. Pt tolerated injection well. Pt scheduled in 4 weeks for next appt. No further questions at this time. Assessment & Plan Assessment & Plan Orders: Orders AMB Romosozumab Injection Patient Supplied Today M81.0 - Age-related osteoporosis without current pathological fracture Coding
== END 2025-03-14 08:58 | disposition home or self-care (01) ==
LOC: HO.ENCR 08:38
PROVIDERS: PCP Internal Medicine; Visit Provider Internal Medicine Endocrinology, Diabetes & Metabolism
DX: M81.0 Age-related osteoporosis without current pathological fracture (principal)

== ENCOUNTER → 2025-03-14 08:37 | Outpatient (BNVA) | payer MEDICARE, SELFPAY | PROVIDERS: PCP Internal Medicine; Visit Provider Internal Medicine Endocrinology, Diabetes & Metabolism | DX: M81.0 Age-related osteoporosis without current pathological fracture (principal) | CPT/HCPCS: 96372; J3111 ==

== ENCOUNTER 2025-04-11 09:06 | Outpatient (AMB) | payer MEDICARE, SELFPAY ==
--- NOTE | 2025-04-11 09:17 | MHC.OFFVIS ---
Vital Signs 04/11/25 09:19 Height 5 ft 2.91 in Weight 107 lb 2.314 oz BMI 19.0 BP 138/80 Blood Pressure Location Rt brachial Position Sitting Pulse 82 Pulse Source Pulse Oximeter Pulse Oximetry (%) 97 Oxygen Delivery Method Room Air Intake Visit Reasons: Osteoporosis/evenity #5 Intake Note: Patient present today for Osteoporosis follow up, last DEXA was on 01/20/2025 AT [facility] [place]. Electric Motor Analyst Required: No Electric Motor Analyst Services: Electric Motor Analyst Offered & Declined Accompanied by: Self / Same As Patient Allergies morphine (MORPHINE) Allergy (Intermediate, Verified 04/11/25 09:20) HYPOTENSION, abdominal pains atorvastatin Allergy (Unknown, Verified 04/11/25 09:20) headaches,abdominal pains simvastatin Allergy (Unknown, Verified 04/11/25 09:20) myalgia trazodone Adverse Reaction (Unknown, Verified 04/11/25 09:20) headaches, weakness Medication List - Last Reconciled 04/11/25 by Christiano Montenegro MD calcium citrate 500 mg (2 x 250 mg calcium) PO DAILY 90 days cholecalciferol (vitamin D3) 125 mcg PO DAILY 90 days ibuprofen 400 mg PO Q6H PRN omega-3 fatty acids 1,000 mg PO DAILY NS omeprazole 20 mg PO DAILY PRN 90 days polyethylene glycol 3350 (Miralax) 17 grams PO DAILY romosozumab-aqqg (Evenity) 210 mg (2.34 mL) subcut .qmonthly zolpidem 10 mg PO BEDTIME PRN 30 days HPI Comments Details: 75-year-old female today for visit, shefor osteoporosis management . She is feeling well. She has no complaints. Patient was diagnosed with osteoporosis on April 2020. She reports she had bone density performed around 20 years ago which was normal. She has past medical history of oophorectomy at age 53, she was on estrogen for about 2 months but she had side effects. She has no secondary etiologies for osteoporosis. She does not have hyperparathyroidism, multiple myeloma, hyperthyroidism. She denies prior fragility fractures, she has history of GERD, she is on omeprazole as needed. She does have positive FH of osteoporosis in her mother but no fractures, she denies nephrolithiasis, denies steroids used, never smoker, never on anti seizures medications,. He has negative History of malignancy or head or neck irradiation. Bisphosphonates use: She was started on alendronate 70 mg Q weekly . Now off Calcium intake: She has been on calcium citrate 500 mg twice a day. Vitamin D: 5000 international units daily. OTC Herbal medications. None. 05/12/2020 BONE DENSITOMETRY FINDINGS: AP SPINE L1-L4: BMD 0.710 g/cm2, Z-score -1.5, T-score -3.9, osteoporosis. LEFT FEMUR, NECK: BMD 0.597 g/cm2, Z-score -1.1, T-score -3.2, osteoporosis. LEFT FEMUR, TOTAL: BMD 0.679 g/cm2, Z-score -0.7, T-score -2.6, osteoporosis. FINDINGS: AP SPINE L1-L3 (excluding L4): The data of L1-L4 has been changed to exclude the L4 vertebral body, because degenerative sclerosis at this level may cause overestimation of lumbar spine density. Current: BMD 0.616 g/cm2, Z-score -2.4, T-score -4.6, osteoporosis, 9.7% decrease from baseline (<5% change is not significant). Baseline: BMD 0.682 g/cm2. LEFT FEMUR, NECK: Current: BMD 0.583 g/cm2, Z-score -1.2, T-score -3.3, osteoporosis. Baseline: BMD 0.597 g/cm2. LEFT FEMUR, TOTAL: Current: BMD 0.651 g/cm2, Z-score -0.9, T-score -2.8, osteoporosis, 4.1% decrease from baseline (<5% change is not significant). Baseline: BMD 0.679 g/cm2. IDENTIFIED RISK FACTORS: Menopause, hysterectomy, bilateral oophorectomy, height loss, low body weight, osteoporosis. HISTORY OF FRACTURE: None listed. MEDICATIONS: Calcium supplements, vitamin D, bisphosphonate. MM/XR DEXA axial skeleton IMPRESSION: 1. DIAGNOSIS: Osteoporosis based on the lowest T-score va Laboratory Tests 04/08/20 10/11/20 10/11/20 09:08 09:15 09:15 Hgb Hct Creatinine Estimated GFR Alkaline Phosphatase Total Protein (PEP) Albumin Albumin (PEP) Yivkn-4-Werrecbdf Cucjl-0-Aejdlnpxs Kpjn-1-Ycnpdojl Sxbo-9-Qimuajeg N-Telopeptide X-linked 55 25-OH Vitamin D Total 1,25 Dihydroxy Vit D 43 1,25 Dihydroxy Vit D3 43 TSH TSH 3rd Generation 2.68 PTH Intact 42 Calcium (PTH Intact) 10.1 Ur 24 Hour Volume Urine Creatinine 112 Ur Creatinine mg/dL Ur Creatinine 24 Hour Ur Calcium 24 Hr Calcium/Creat 24 Hr IgA Endomysial Ab Titer Endomysial IgA Ab Tiss Transglutamin IgG 10/11/20 10/14/20 10/14/20 09:15 08:00 08:00 Hgb Hct Creatinine Estimated GFR Alkaline Phosphatase Total Protein (PEP) 6.9 Albumin Albumin (PEP) 4.5 Rawyb-0-Iawkqqqfr 0.2 Qcuut-2-Jotpmesfu 0.6 Iejd-2-Xanownac 0.4 Dwxb-1-Tvpkjvrx 0.4 N-Telopeptide X-linked 25-OH Vitamin D Total 1,25 Dihydroxy Vit D 1,25 Dihydroxy Vit D3 TSH TSH 3rd Generation PTH Intact Calcium (PTH Intact) Ur 24 Hour Volume 1100 Urine Creatinine Ur Creatinine mg/dL 59.30 Ur Creatinine 24 Hour Ur Calcium 24 Hr 96 Calcium/Creat 24 Hr 150 IgA 265 Endomysial Ab Titer TNP Endomysial IgA Ab Negative Tiss Transglutamin IgG 2 10/14/20 12/04/20 12/04/20 08:00 09:36 09:36 Hgb 11.2 L Hct 35.1 L Creatinine 0.71 Estimated GFR > 60 Alkaline Phosphatase 74 Total Protein (PEP) Albumin 4.2 Albumin (PEP) Esfiy-9-Mnywivcdp Ljbpx-1-Bhhxrayat Obaa-1-Vxiqibfs Tqqw-5-Rrtxkpwb N-Telopeptide X-linked 25-OH Vitamin D Total 37.6 1,25 Dihydroxy Vit D 1,25 Dihydroxy Vit D3 TSH 1.99 TSH 3rd Generation PTH Intact Calcium (PTH Intact) Ur 24 Hour Volume Urine Creatinine Ur Creatinine mg/dL Ur Creatinine 24 Hour 0.65 Ur Calcium 24 Hr Calcium/Creat 24 Hr IgA Endomysial Ab Titer Endomysial IgA Ab Tiss Transglutamin IgG Laboratory Tests 04/08/20 08/02/20 08/02/20 09:08 10:37 10:37 Hgb 11.5 L Hct 35.8 L Creatinine 0.68 Estimated GFR > 60 Calcium 9.5 Alkaline Phosphatase 77 Albumin 4.4 25-OH Vitamin D Total 19.2 TSH 1.67 TSH 3rd Generation 2.68 Currently on Evenity since 02/2024. No fx since last visit. No back pain . not received Evenity injections for 4 mos because had flu sx . Back on Evenity injection 5. PFSH Medical History Tubular adenoma of colon Diverticulosis Fever Anxiety Insomnia Postherpetic neuralgia Varicose veins of leg with pain Primary osteoarthritis, left shoulder Constipation GERD (gastroesophageal reflux disease) Vitamin D deficiency Osteoporosis Pure hypercholesterolemia Surgical History History of colonoscopy Varicose vein of leg History of excision of mass History of total hysterectomy Family History Father Medical history unknown Mother Medical history unknown Son No problems noted. Daughter No problems noted. Social History Household Members: None Housing: Apartment Alcohol intake: never Patient Tobacco Use Status: Never used Tobacco e-Cigarette/Vaping Use: Never Used Second Hand Smoke Exposure: No service: No Current occupational status: disabled Cognitive needs: No Hearing needs: No Vision needs: No Physical Exam Vital Signs: Last Vital Signs Pulse 82 04/11/25 09:19 BP 138/80 04/11/25 09:19 Pulse Ox 97 04/11/25 09:19 Oxygen Delivery Method Room Air 04/11/25 09:19 BMI result Body Mass Index 19.0 Assessment & Plan Assessment & Plan (1) Osteoporosis: Code(s): M81.0 - Age-related osteoporosis without current pathological fracture Category: Medical Qualifiers: Osteoporosis type: age-related Presence of current pathological fracture: without current pathological fracture Qualified Code(s): M81.0 - Age-related osteoporosis without current pathological fracture Plan: This is a 74-year-old female with a history of osteoporosis being treated with alendronate 70 mg Q weekly. Secondary workup was negative. Currently on Evenity for 5 mos Plan is to continue the of any for full uninterrupted 12 months and then transition to Prolia. We will have patient return 5 months. No fx since last visit. Taking calcium and Vitamin D Coding Level of Care Code Est Pt Level 3 (94437) Diagnoses Age-related osteoporosis without current pathological fracture M81.0 Osteoporosis type: age-related Presence of current pathological fracture: without current pathological fracture
[2025-04-11 09:19] VITALS: BP 138/80; PULSE 82; O2SAT 97; BMI 19.0
== END 2025-04-11 09:59 | disposition home or self-care (01) ==
LOC: HO.ENCR 09:06
PROVIDERS: PCP Internal Medicine; Visit Provider Internal Medicine Endocrinology, Diabetes & Metabolism
DX: M81.0 Age-related osteoporosis without current pathological fracture (principal)
CPT/HCPCS: 99213

== ENCOUNTER → 2025-04-11 09:06 | Outpatient (BNVA) | payer MEDICARE, SELFPAY | PROVIDERS: PCP Internal Medicine; Visit Provider Internal Medicine Endocrinology, Diabetes & Metabolism | DX: M81.0 Age-related osteoporosis without current pathological fracture (principal) | CPT/HCPCS: 96372; 99212; J3111 ==

== ENCOUNTER 2025-04-19 09:13 | Outpatient (REF) | payer MEDICARE, SELFPAY ==
[2025-04-19 09:27] LABS: MANUAL DIFF FLAG NO
[2025-04-19 09:43] LABS: Hematocrit 38.2 % (37.0-47.0); Hemoglobin 12.3 g/dl (12.0-16.0); Imm Gran Abs Auto 0.02 X10*3/uL (0.00-0.03); Imm Gran Pct Auto 0.5 % (0.0-0.4); Lymphocytes Absolute Auto 1.5 X10*3/uL (1.2-4.9); Mean Corpuscular HGB Conc 32.2 g/dl (31.0-35.0); Mean Corpuscular Hemoglobin 29.7 pg (27.0-33.0); Mean Corpuscular Volume 92.3 fL (80.0-98.0); NRBC Abs Auto 0.000 X10*3/uL (0.0-0.012); NRBC Pct Auto 0.0 /100WBC (0.0-0.2); Platelet Count 239 X10*3/uL (160-400); Red Blood Count 4.14 X10*6/uL (4.20-5.50); White Blood Count 3.8 X10*3/uL (4.8-10.8)
[2025-04-19 10:13] LABS: Alanine Aminotransferase 13 U/L (0-31); Albumin Level 4.6 g/dL (3.5-5.0); Alkaline Phosphatase 103 U/L (39-117); Anion Gap 9 (12-20); Aspartate Amino Transferase 26 U/L (5-31); Blood Urea Nitrogen 15 mg/dL (9-16); Calcium 9.6 mg/dL (8.4-10.2); Carbon Dioxide 30 mmol/L (22-29); Chloride 108 mmol/L (96-108); Cholesterol 257 mg/dL (<200); Estimated Glomerular Filt Rate > 60; HDL Cholesterol 83 mg/dL (>40); Potassium 4.4 mmol/L (3.3-5.1); Sodium 143 mmol/L (135-145); Total Protein 7.1 g/dL (6.5-8.0); Triglycerides 99 mg/dL (<150)
[2025-04-19 10:25] LABS: Appearance Urine Clear; Glucose Urine UA Negative (Negative); PH 6.5 (5.0-9.0); Specific Gravity - Urine 1.015 (1.005-1.025); UMIC TRIGGER UACC YES
== END 2025-04-19 09:14 | disposition home or self-care (01) ==
LOC: HO.LAB 09:13
PROVIDERS: PCP Internal Medicine; Visit Provider Internal Medicine
DX: D64.9 Anemia, unspecified (principal); E78.00 Pure hypercholesterolemia, unspecified; E55.9 Vitamin D deficiency, unspecified; R30.0 Dysuria
CPT/HCPCS: 36415; 80053; 80061; 81001; 82306; 84443; 85025

== ENCOUNTER 2025-04-25 10:20 | Outpatient (AMB) | payer MEDICARE, SELFPAY ==
[2025-04-25 10:22] VITALS: BP 110/60; PULSE 94; O2SAT 97; BMI 19.2
--- NOTE | 2025-04-25 10:22 | MHC.PC.OV ---
Vital Signs 04/25/25 10:22 Height 5 ft 2.91 in Weight 108 lb 2 oz BMI 19.2 BP 110/60 Blood Pressure Location Lt brachial Position Sitting Pulse 94 Pulse Source Pulse Oximeter Pulse Oximetry (%) 97 Oxygen Delivery Method Room Air Intake Visit Reasons: hyperlipidemia, osteoporosis, GERD, insomnia Cuff Setter Required: No Accompanied by: Self / Same As Patient Allergies morphine (MORPHINE) Allergy (Intermediate, Verified 04/25/25 10:58) HYPOTENSION, abdominal pains atorvastatin Allergy (Unknown, Verified 04/25/25 10:58) headaches,abdominal pains simvastatin Allergy (Unknown, Verified 04/25/25 10:58) myalgia trazodone Adverse Reaction (Unknown, Verified 04/25/25 10:58) headaches, weakness Medication List - Last Reconciled 04/25/25 by Seferino Azar MD calcium citrate 500 mg (2 x 250 mg calcium) PO DAILY 90 days cholecalciferol (vitamin D3) 125 mcg PO DAILY 90 days ibuprofen 400 mg PO Q6H PRN omega-3 fatty acids 1,000 mg PO DAILY NS omeprazole 20 mg PO DAILY PRN 90 days polyethylene glycol 3350 (Miralax) 17 grams PO DAILY romosozumab-aqqg (Evenity) 210 mg (2.34 mL) subcut .qmonthly zolpidem 10 mg PO BEDTIME PRN 30 days Tobacco use date assessed: 04/25/25 Fall risk assessment: No Falls in past year Last assessed Fall Risk: 04/25/25 Dental Screening Dental Screen Date: 04/25/25 Did you have a dental visit in the last 12 months?: No Did you have a dental problem in the last 6 months where you did not have access to dental care?: No Was dental information given to patient?: No HPI hyperlipidemia, osteoporosis, GERD, insomnia HPI Details Patient comes in today for her follow up visit States that she feels okay She denies any headaches or dizziness Denies any chest pains, no SOB No nausea/vomiting, no abdominal pain No change in bowel habits noted Needs her Zolpidem Rx refilled today She had her follow up labs done last week - to discuss her results FOR[facility]LY [facility], [facility] Medical History Tubular adenoma of colon Diverticulosis Fever Anxiety Insomnia Postherpetic neuralgia Varicose veins of leg with pain Primary osteoarthritis, left shoulder Constipation GERD (gastroesophageal reflux disease) Vitamin D deficiency Osteoporosis Pure hypercholesterolemia Surgical History History of colonoscopy Varicose vein of leg History of excision of mass History of total hysterectomy Family History Father Medical history unknown Mother Medical history unknown Son No problems noted. Daughter No problems noted. Social History Household Members: None Housing: Apartment Alcohol intake: never Patient Tobacco Use Status: Never used Tobacco e-Cigarette/Vaping Use: Never Used Second Hand Smoke Exposure: No service: No Current occupational status: disabled Cognitive needs: No Hearing needs: No Vision needs: No Questionnaire Thrive Questionnaire Date Thrive assessed: 12/20/24 I am a: Patient What is your living situation today?: I choose not to answer this question Within the past 12 months, did the food you bought not last and you didn't have the money to get more?: I choose not to answer this question Within the past 12 months, did you worry whether your food would run out before you got money to buy more?: I choose not to answer this question Do you have trouble paying for medicines?: I choose not to answer this question Do you have trouble getting transportation to medical appointments?: I choose not to answer this question Do you have trouble paying your heating and electricity bill?: I choose not to answer this question Do you have trouble taking care of your child, family member or friend?: I choose not to answer this question Do you have trouble with day-to-day activities such as bathing, preparing meals, shopping, managing finances, etc.?: No Are you currently unemployed and looking for a job?: No Are you interested in more education?: I choose not to answer this question Please select the resources that you would like help with: None Currently or been in a relationship where the following occur: I choose not to answer THRIVE Score: 0 AUDIT C Alcohol Use Questionnaire (AUDIT-C) 1. How often do you have a drink containing alcohol?: Never 3. How often do you have six or more drinks on one occasion?: Never Total Score: 0 Score Reviewed/Action Taken: Yes JACOBO-7 AMB Questionnaire JACOBO-7 Date JACOBO - 7 assessed: 12/20/24 Source: Developed by Drs. Christiano Cuellar, Fabiola Tobin, Adalberto Patel and colleagues, with an educational raudel from [employer]. Review of Systems Const Denies chills, Denies fatigue, Denies fever(s) and Denies headache(s) ENT Denies dysphagia, Denies dizziness, Denies otalgia, Denies headache(s), Denies neck pain, Denies odynophagia and Denies sore throat Card Denies chest pain, Denies irregular heart rhythm, Denies palpitations and Denies dyspnea Resp Denies chest congestion, Denies cough and Denies dyspnea GI Denies abdominal pain, Denies constipation, Denies dysphagia, Denies diarrhea, Denies nausea, Denies odynophagia and Denies vomiting Denies difficulty voiding, Denies nocturia, Denies dysuria and Denies urinary urgency Musc Denies back pain and Denies neck pain Skin/Breast Denies rash Neuro Denies dizziness and Denies headache(s) Endo Denies fatigue and Denies palpitations Physical exam (Primary Care) Vital Signs: Last Vital Signs Pulse 94 04/25/25 10:22 BP 110/60 04/25/25 10:22 Pulse Ox 97 04/25/25 10:22 Oxygen Delivery Method Room Air 04/25/25 10:22 BMI result Body Mass Index 19.2 Tobacco/Smoking Status: Tobacco use Status Tobacco use date assessed 04/25/25 04/25/25 10:24 Patient Tobacco Use Status Never used Tobacco 04/25/25 10:24 e-Cigarette/Vaping Use Never Used 04/25/25 10:24 Thrive Assessment: Date of Thrive Assessment Date Thrive assessed 12/20/24 04/25/25 10:24 Currently or been in a relationship where the following occur: I choose not to answer Const General: no acute distress and alert HENMT Ears: TM's normal bilaterally and EAC's normal Throat: Yes posterior oropharynx normal and Yes tonsils normal (no TP congestion noted) Neck Neck: Yes supple and No lymphadenopathy Thyroid: Thyroid normal Resp Auscultation: clear to auscultation bilaterally, no rales and no wheezes Cardio Rate: regular rate Rhythm: regular rhythm Heart sounds: no murmurs GI Palpation (GI): Soft to palpation and nontender Auscultation: normal bowel sounds General: Yes no CVA tenderness Back/Spine/Pelvis Back: no CVA tenderness Thoracic/Lumbar Spine: No lumbar spinal tenderness Skin Rashes: no rashes Extrem General: Yes no clubbing, cyanosis or edema Results Reviewed Results Reviewed: Laboratory Tests 04/19/25 04/19/25 09:16 09:26 WBC 3.8 L Hgb 12.3 Hct 38.2 Plt Count 239 Sodium 143 Potassium 4.4 Creatinine 0.67 Estimated GFR > 60 Fasting Glucose 98 Calcium 9.6 AST 26 ALT 13 Triglycerides 99 Cholesterol 257 H LDL Cholesterol, Calc 155 H HDL Cholesterol 83 25-OH Vitamin D Total 48.8 TSH 1.91 Ur Specific May 1.015 Urine Protein Negative Urine Glucose (UA) Negative Urine Blood Trace H Urine Nitrite Negative Ur Leukocyte Esterase Trace H Coding Level of Care Code Est Pt Level 4 (35144) Diagnoses Pure hypercholesterolemia E78.00 Age-related osteoporosis without current pathological fracture M81.0 Osteoporosis type: age-related Presence of current pathological fracture: without current pathological fracture Vitamin D deficiency E55.9 Gastroesophageal reflux disease without esophagitis K21.9 Esophagitis presence: without esophagitis Constipation, unspecified constipation type K59.00 Constipation type: unspecified constipation type Primary osteoarthritis, left shoulder M19.012 Varicose veins of lower extremity with pain, unspecified laterality I83.819 Laterality: unspecified laterality Postherpetic neuralgia B02.29 Insomnia, unspecified type G47.00 Insomnia type: unspecified Assessment & Plan Assessment & Plan (1) Pure hypercholesterolemia: Comment: Has been unable to tolerate STATINS in the past Code(s): E78.00 - Pure hypercholesterolemia, unspecified Category: Medical Plan: Results of her labs done last week reviewed and discussed with patient - she is advised that her total and LDL cholesterol levels have increased again slightly from previous Reinforced low cholesterol diet - patient has been unable to tolerate statins in the past We tried to start her on Repatha injections for her high cholesterol but she states that her insurance will only cover part of the cost of the Rx and she is unable to afford paying [id number] for the Rx She will continue with diet modification for now, mostly as she has no other viable option at present as her insurance refuses to cover any of the appropriate Rx for her Will recheck her labs and fasting lipids in 4 months for follow up (2) Osteoporosis: Code(s): M81.0 - Age-related osteoporosis without current pathological fracture Category: Medical Qualifiers: Osteoporosis type: age-related Presence of current pathological fracture: without current pathological fracture Qualified Code(s): M81.0 - Age-related osteoporosis without current pathological fracture Plan: BMD done a few months ago revealed (+) osteoporosis Continue Evenity 210 mg SQ once a month - she appears to be tolerating Evenity so far Endocrinology is planning to switch her over to Prolia when she has completed her Evenity Tx She is reminded to continue taking her oral Calcium and Vitamin D supplements daily Follow up with endocrinology(Dr. Montenegro) as scheduled (3) Vitamin D deficiency: Code(s): E55.9 - Vitamin D deficiency, unspecified Category: Medical Plan: Continue Vitamin D 5000 units QD (4) GERD (gastroesophageal reflux disease): Code(s): K21.9 - Gastro-esophageal reflux disease without esophagitis Category: Medical Qualifiers: Esophagitis presence: without esophagitis Qualified Code(s): K21.9 - Gastro-esophageal reflux disease without esophagitis Plan: Dietary restrictions reinforced Continue Omeprazole 20 mg QD PRN (5) Constipation: Code(s): K59.00 - Constipation, unspecified Category: Medical Qualifiers: Constipation type: unspecified constipation type Qualified Code(s): K59.00 - Constipation, unspecified Plan: Improved - patient is again encouraged to continue increased oral fluids and dietary fiber Continue Miralax 17 gm QD (6) Primary osteoarthritis, left shoulder: Code(s): M19.012 - Primary osteoarthritis, left shoulder Category: Medical Plan: X-rays of the left shoulder done a few years ago showed (+) mild OA changes in the AC joint She is advised to continue with regular shoulder exercises to help manage pain more effectively - patient states that shoulder has not been bothering her as much lately Will consider physical therapy and/ or orthopedics referral if her shoulder symptoms increase or worsen (7) Varicose veins of leg with pain: Code(s): I83.819 - Varicose veins of unspecified lower extremity with pain Category: Medical Qualifiers: Laterality: unspecified laterality Qualified Code(s): I83.819 - Varicose veins of unspecified lower extremity with pain Plan: Follow up with vascular surgery as scheduled (8) Postherpetic neuralgia: Code(s): B02.29 - Other postherpetic nervous system involvement Category: Medical Plan: Patient states that her symptoms have improved significantly and she does not require any Rx or Tx (9) Insomnia: Code(s): G47.00 - Insomnia, unspecified Category: Medical Qualifiers: Insomnia type: unspecified Qualified Code(s): G47.00 - Insomnia, unspecified Plan: Sleep hygiene reinforced Continue Zolpidem 10 mg once a day at bedtime as needed - Rx refilled Plan Follow up in 4 months Orders: Orders Lipid Panel 4 Months E78.00 - Pure hypercholesterolemia, unspecified UA CC w/rflx Micro + Cult 4 Months R30.0 - Dysuria Complete Blood Count Auto Diff 4 Months D64.9 - Anemia, unspecified Comprehensive [place]. Panel Fast 4 Months E78.00 - Pure hypercholesterolemia, unspecified Vitamin D 25-OH Total 4 Months E55.9 - Vitamin D deficiency, unspecified Medications: Refilled zolpidem 10 mg PO BEDTIME PRN 30 tabs 2RF insomnia 30 days
== END 2025-04-25 11:20 | disposition home or self-care (01) ==
LOC: HO.HMCH 10:21
PROVIDERS: PCP Internal Medicine; Visit Provider Internal Medicine
DX: E78.00 Pure hypercholesterolemia, unspecified (principal); M81.0 Age-related osteoporosis without current pathological fracture; E55.9 Vitamin D deficiency, unspecified; K21.9 Gastro-esophageal reflux disease without esophagitis; K59.00 Constipation, unspecified; M19.012 Primary osteoarthritis, left shoulder; I83.819 Varicose veins of unspecified lower extremity with pain; B02.29 Other postherpetic nervous system involvement; G47.00 Insomnia, unspecified

== ENCOUNTER → 2025-04-25 10:20 | Outpatient (BNVA) | payer MEDICARE, SELFPAY | PROVIDERS: PCP Internal Medicine; Visit Provider Internal Medicine | DX: M81.0 Age-related osteoporosis without current pathological fracture (principal); K21.9 Gastro-esophageal reflux disease without esophagitis; G47.00 Insomnia, unspecified; E78.00 Pure hypercholesterolemia, unspecified; E55.9 Vitamin D deficiency, unspecified; K59.00 Constipation, unspecified; M19.012 Primary osteoarthritis, left shoulder; I83.819 Varicose veins of unspecified lower extremity with pain; B02.29 Other postherpetic nervous system involvement | CPT/HCPCS: 99212 ==

== ENCOUNTER 2025-05-10 09:08 | Outpatient (AMB) | payer MEDICARE, SELFPAY ==
--- NOTE | 2025-05-10 09:33 | AM.OFFVISNUR ---
Intake Visit Reasons: Evenity #6 Allergies morphine (MORPHINE) Allergy (Intermediate, Verified 04/25/25 10:58) HYPOTENSION, abdominal pains atorvastatin Allergy (Unknown, Verified 04/25/25 10:58) headaches,abdominal pains simvastatin Allergy (Unknown, Verified 04/25/25 10:58) myalgia trazodone Adverse Reaction (Unknown, Verified 04/25/25 10:58) headaches, weakness Office Meds romosozumab-aqqg 210 mg/2.34 mL(105 mg/1.17 mL x2)subcutaneous syringe Performing Provider: Christiano Montenegro MD Performing Location: [facility] [place] Endocrinology Administered by: Anna Vciente RN on 05/10/25 09:33 Dose Route Admin Location Dispensed Lot Number Expiration Date [facility] Clipper Operator 210 mg subcut bilateral upper arms 2.34 mL [id number] 02/17/27 09406-546-57 [employer] Total Dispensed Waste 2.34 mL 0 % Comments: Pt declined elevator technician. No adverse reactions reported from previous injection. Pt tolerated injection well. Pt scheduled in 4 weeks for next appt. No further questions at this time. Assessment & Plan Assessment & Plan Orders: Orders AMB Romosozumab Injection Patient Supplied Today M81.0 - Age-related osteoporosis without current pathological fracture Coding
--- OUTSIDE RECORDS SUMMARY | 2025-05-10 09:57 | XMS_ITS ---
Author Organization Unknown ENCOUNTERS Encounter Performer Location Date Diagnosis Diagnosis Status Pre Admit [address] [id number] [address] [id number] [facility] Emergency [address] [address] [id number] [facility] Pre Admit Generic ED Physician [facility] [address] [place] [id number] Emergency [facility] [address] [place] [id number] [facility] *Note: Encounters from your own facility or health system may be excluded. Allergies, Adverse Reactions, Alerts Allergen Type Severity Identification Date simvastatin drug allergy [id number] trazodone drug allergy [id number] atorvastatin drug allergy [id number] Medications Name Date Quantity Days Supplied GPI Number
== END 2025-05-10 09:33 | disposition home or self-care (01) ==
LOC: HO.ENCR 09:09
PROVIDERS: PCP Internal Medicine; Visit Provider Internal Medicine Endocrinology, Diabetes & Metabolism
DX: M81.0 Age-related osteoporosis without current pathological fracture (principal)

== ENCOUNTER → 2025-05-10 09:08 | Outpatient (BNVA) | payer MEDICARE, SELFPAY | PROVIDERS: PCP Internal Medicine; Visit Provider Internal Medicine Endocrinology, Diabetes & Metabolism | DX: M81.0 Age-related osteoporosis without current pathological fracture (principal) | CPT/HCPCS: 96372; J3111 ==

== ENCOUNTER 2025-06-07 09:15 | Outpatient (AMB) | payer MEDICARE, SELFPAY ==
--- NOTE | 2025-06-07 09:43 | AM.OFFVISNUR ---
Intake Visit Reasons: Evenity #7 Allergies morphine (MORPHINE) Allergy (Intermediate, Verified 04/25/25 10:58) HYPOTENSION, abdominal pains atorvastatin Allergy (Unknown, Verified 04/25/25 10:58) headaches,abdominal pains simvastatin Allergy (Unknown, Verified 04/25/25 10:58) myalgia trazodone Adverse Reaction (Unknown, Verified 04/25/25 10:58) headaches, weakness Office Meds romosozumab-aqqg 210 mg/2.34 mL(105 mg/1.17 mL x2)subcutaneous syringe Performing Provider: Christiano Montenegro MD Performing Location: [facility] [place] Endocrinology Administered by: Anna Vicente RN on 06/07/25 09:43 Dose Route Admin Location Dispensed Lot Number Expiration Date [facility] Plastic Frame Inserter 210 mg subcut bilateral upper arms 2.34 mL [id number] 10/19/27 65434-901-23 [employer] Total Dispensed Waste 2.34 mL 0 % Comments: Pt declined mechanical shovel operator. No adverse reactions reported from previous injection. Pt tolerated injection well. Pt scheduled in 4 weeks for next appt. No further questions at this time. Assessment & Plan Assessment & Plan Orders: Orders AMB Romosozumab Injection Patient Supplied Today M81.0 - Age-related osteoporosis without current pathological fracture Coding
== END 2025-06-07 09:42 | disposition home or self-care (01) ==
LOC: HO.ENCR 09:17
PROVIDERS: PCP Internal Medicine; Visit Provider Internal Medicine Endocrinology, Diabetes & Metabolism
DX: M81.0 Age-related osteoporosis without current pathological fracture (principal)

== ENCOUNTER → 2025-06-07 09:15 | Outpatient (BNVA) | payer MEDICARE, SELFPAY | PROVIDERS: PCP Internal Medicine; Visit Provider Internal Medicine Endocrinology, Diabetes & Metabolism | DX: M81.0 Age-related osteoporosis without current pathological fracture (principal); Z79.620 Long term (current) use of immunosuppressive biologic | CPT/HCPCS: 96372; J3111 ==

== ENCOUNTER 2025-07-05 09:13 | Outpatient (AMB) | payer MEDICARE, SELFPAY ==
--- NOTE | 2025-07-05 09:44 | AM.OFFVISNUR ---
Intake Visit Reasons: Evenity #7 Allergies morphine (MORPHINE) Allergy (Intermediate, Verified 04/25/25 10:58) HYPOTENSION, abdominal pains atorvastatin Allergy (Unknown, Verified 04/25/25 10:58) headaches,abdominal pains simvastatin Allergy (Unknown, Verified 04/25/25 10:58) myalgia trazodone Adverse Reaction (Unknown, Verified 04/25/25 10:58) headaches, weakness Office Meds romosozumab-aqqg 210 mg/2.34 mL(105 mg/1.17 mL x2)subcutaneous syringe Performing Provider: Christiano Montenegro MD Performing Location: [facility] [place] [facility] Administered by: Anna Vicente RN on 07/05/25 09:35 Dose Route Admin Location Dispensed Lot Number Expiration Date [place] [employer] 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 No adverse reactions reported from previous injection. Pt tolerated injection well. Pt scheduled in 4 weeks for next appt. No further questions at this time. Assessment & Plan Assessment & Plan Orders: Orders AMB Romosozumab Injection Patient Supplied Today M81.0 - Age-related osteoporosis without current pathological fracture Coding
== END 2025-07-05 09:35 | disposition home or self-care (01) ==
LOC: HO.ENCR 09:14
PROVIDERS: PCP Internal Medicine; Visit Provider Internal Medicine Endocrinology, Diabetes & Metabolism
DX: M81.0 Age-related osteoporosis without current pathological fracture (principal)

== ENCOUNTER → 2025-07-05 09:13 | Outpatient (BNVA) | payer MEDICARE, SELFPAY | PROVIDERS: PCP Internal Medicine; Visit Provider Internal Medicine Endocrinology, Diabetes & Metabolism | DX: M81.0 Age-related osteoporosis without current pathological fracture (principal) | CPT/HCPCS: 96372; J3111 ==